=== PATIENT | male | born 1935 | race Caucasian/White ===

== ENCOUNTER 2018-03-17 18:34 | Inpatient (IN) | payer OTHER ==
--- NOTE | 2018-03-17 18:46 | PDOC ---
Rapid Medical Evaluation Chief Complaint: Shortness of Breath Time Seen by Provider: 03/17/18 18:37 Medical Evaluation: Allergies Allergy/AdvReac Type Severity Reaction Status Date / Time morphine Allergy Verified 03/17/18 18:37 03/17/18 18:38 I have performed a brief in-person evaluation of this patient. The patient presents with a chief complaint of GOLDBERG x 4 days. H/o HTN, HLD, CAD s /p CABG 2016 in [place], on asa, CHF on butamenide, DVT to R leg in 2017, on eliquis , COPD, not on oxygen. Symptoms started while in [place] (drove from [place] 8 days ago and arrived in [place] March 12) Pertinent physical exam findings:Stable w/ clear chest/lungs w/ trace edema I have ordered the following:ekg/cxr/labs The patient will proceed to the ED for further evaluation.
[2018-03-17 19:42] LABS: BASO % 0.1 % (0-2.0); EOS % 0.1 % (0-4.5)
[2018-03-17 19:52] LABS: HEMATOCRIT 19.7 % (35.4-49); LYMPH % 12.6 % (8-40); MCH 35.7 pg (25.7-33.7); MCHC 34.2 g/dl (32.0-35.9); MEAN CELL VOLUME 104.2 fl (80-96); NEUT % 80.2 % (42.8-82.8); PLATELET COUNT 126 K/MM3 (134-434); RBC 1.89 M/mm3 (4.00-5.60); RDW 20.7 % (11.9-15.9); WHITE BLOOD COUNT 5.4 K/mm3 (4.0-10.0)
[2018-03-17 19:55] LABS: ADD RBC MORPHOLOGY YES; HEMOGLOBIN 6.7 GM/dL (11.7-16.9)
--- NOTE | 2018-03-17 19:56 | PDOC ---
History of Present Illness - General History Source: Patient, Family Exam Limitations: No Limitations - History of Present Illness Initial Comments: 03/17/18 19:54 The patient is an 82M with a PMH of santo on eliquis, COPD, HTN, stage 3 CKD who presents to the ER with worsening GOLDBERG and shortness of breath. Of note, the patient traveled from [place] 5 days ago by car over 3 days span. The patient does have a history of blood clots. The patient is with his daughter who provides most of the history. The patient states that he has recently had acutely worsened GOLDBERG but denies orthopnea. He denies any SOB while resting. He does state that he becomes dyspneic any time he tries to walk. He denies any CP , fever, chills, nausea, vomiting, swelling in extremities. <Brenden Sapp - Last Filed: 03/17/18 21:50> <Laura Loja - Last Filed: 03/17/18 21:57> - General Chief Complaint: Shortness of Breath Stated Complaint: S.O.B Time Seen by Provider: 03/17/18 18:37 Past History - Past Medical History Cancer: Yes (colon, mi) COPD: Yes Diabetes: Yes HTN: Yes Hypercholesterolemia: Yes Other medical history: rt dvt - Surgical History Abdominal Surgery: Yes (colon ca) Cardiac Surgery: Yes (cabg, card stents) - Suicide/Smoking/Psychosocial Hx Smoking History: Former smoker Have you smoked in the past 12 months: No Information on smoking cessation initiated: No Hx Alcohol Use: No Drug/Substance Use Hx: No Substance Use Type: None <Brenden Sapp - Last Filed: 03/17/18 21:50> <Laura Loja - Last Filed: 03/17/18 21:57> - Past Medical History Allergies/Adverse Reactions: Allergies Allergy/AdvReac Type Severity Reaction Status Date / Time morphine Allergy Verified 03/17/18 18:37 Review of Systems - Review of Systems Able to Perform ROS?: Yes Comments:: 03/17/18 21:42 GENERAL/CONSTITUTIONAL: No fever or chills. No weakness. HEAD, EYES, EARS, NOSE AND THROAT: No change in vision. No ear pain or discharge. No sore throat. CARDIOVASCULAR: No chest pain, palpitations, or lightheadedness. RESPIRATORY: Positive for dyspnea on exertion. No cough, wheezing, shortness of breath, or hemoptysis. GASTROINTESTINAL: No nausea, vomiting, diarrhea, constipation, or abdominal pain. GENITOURINARY: No dysuria, frequency, hematuria, or change in urination. MUSCULOSKELETAL: No joint or muscle swelling or pain. No neck or back pain. SKIN: No rash or lesions. NEUROLOGIC: No headache, numbness, tingling, weakness, loss of consciousness, or change in strength/sensation. ENDOCRINE: No increased thirst. No abnormal weight change. HEMATOLOGIC/LYMPHATIC: No anemia, easy bleeding, or history of blood clots. ALLERGIC/IMMUNOLOGIC: No hives or skin allergy. Is the patient limited Bengali proficient: No <Brenden Sapp - Last Filed: 03/17/18 21:50> *Physical Exam - Vital Signs Last Vital Signs Temp Pulse Resp BP Pulse Ox 97.4 F L 92 H 22 153/74 98 03/17/18 18:37 03/17/18 18:45 03/17/18 18:37 03/17/18 18:37 03/17/18 18:45 - Physical Exam Comments: 03/17/18 21:43 GENERAL: Well developed, well nourished. Awake and alert. No acute distress. HEENT: Normocephalic, atraumatic. Hearing grossly normal. Moist mucous membranes. PERRLA, EOMI. No conjunctival pallor. Sclera are non-icteric. NECK: Supple. Full ROM. No JVD. Carotid pulses 2+ and symmetric, without bruits. No thyromegaly. No lymphadenopathy. CARDIOVASCULAR: Regular rate and rhythm. No murmurs, rubs, or gallops. Distal pulses are 2+ and symmetric. PULMONARY: No evidence of respiratory distress. Lungs clear to auscultation bilaterally. No wheezing, rales or rhonchi. ABDOMINAL: Soft. Non-tender. Non-distended. No rebound or guarding. No organomegaly. Normoactive bowel sounds. GENITOURINARY: No CVA tenderness bilaterally. MUSCULOSKELETAL: Normal range of motion at all joints. No bony deformities or tenderness. EXTREMITIES: No cyanosis. No clubbing. No edema. No calf tenderness. SKIN: Warm and dry. Normal capillary refill. No rashes. No jaundice. NEUROLOGICAL: Alert, awake, appropriate. Cranial nerves 2-12 intact. Normal speech. Gait is normal without ataxia. PSYCHIATRIC: Cooperative. Good eye contact. Appropriate mood and affect. <Brenden Sapp - Last Filed: 03/17/18 21:50> - Vital Signs Last Vital Signs Temp Pulse Resp BP Pulse Ox 97.4 F L 92 H 22 153/74 98 03/17/18 18:37 03/17/18 18:45 03/17/18 18:37 03/17/18 18:37 03/17/18 18:45 <Laura Loja - Last Filed: 03/17/18 21:57> Heart Score/ECG Review #1 ECG reviewed & interpreted by me at: 19:26 General ECG Interpretation: Sinus Rhythm, Normal Rate, Normal Intervals, No acute ischemic changes Compared to previous ECG there are: Previous ECG unavail 03/17/18 21:39 Vent rate 97 QRS 86 QTc 439 A-fib with regular rate No LILIA or STD No acute ischemic changes noted. <Brenden Sapp - Last Filed: 03/17/18 21:50> ED Treatment Course - LABORATORY CBC & Chemistry Diagram: 03/17/18 18:34 03/17/18 18:34 <Brenden Sapp - Last Filed: 03/17/18 21:50> - LABORATORY CBC & Chemistry Diagram: 03/17/18 18:34 03/17/18 18:34 - ADDITIONAL ORDERS Additional order review: Laboratory Results 03/17/18 03/17/18 03/17/18 20:55 20:10 20:08 PT with INR 12.20 INR 1.08 Sodium Potassium Chloride Carbon Dioxide Anion Gap BUN Creatinine Creat Clearance w eGFR Random Glucose Calcium Total Bilirubin AST ALT Alkaline Phosphatase Creatine Kinase Troponin I B-Natriuretic Peptide Total Protein Albumin Stool Occult Blood Blood Type A POSITIVE A POSITIVE Antibody Screen Negative Crossmatch See Detail 03/17/18 03/17/18 03/17/18 20:08 20:00 18:34 PT with INR INR Sodium 137 Potassium 4.5 Chloride 106 Carbon Dioxide 21 Anion Gap 10 BUN 64 H Creatinine 2.0 H Creat Clearance w eGFR 32.23 Random Glucose 336 H* Calcium 9.0 Total Bilirubin 0.5 AST 19 ALT 22 Alkaline Phosphatase 68 Creatine Kinase 106 Troponin I 1.57 H* B-Natriuretic Peptide Total Protein 6.3 L Albumin 3.8 Stool Occult Blood Positive Blood Type Cancelled Antibody Screen Cancelled Crossmatch 03/17/18 18:34 PT with INR INR Sodium Potassium Chloride Carbon Dioxide Anion Gap BUN Creatinine Creat Clearance w eGFR Random Glucose Calcium Total Bilirubin AST ALT Alkaline Phosphatase Creatine Kinase Troponin I B-Natriuretic Peptide 68090.95 H Total Protein Albumin Stool Occult Blood Blood Type Antibody Screen Crossmatch 03/17/18 18:34 RBC 1.89 L MCV 104.2 H MCHC 34.2 RDW 20.7 H MPV 9.0 Neutrophils % 80.2 Lymphocytes % 12.6 Monocytes % 7.0 Eosinophils % 0.1 Basophils % 0.1 <Laura Loja - Last Filed: 03/17/18 21:57> Medical Decision Making - Medical Decision Making 03/17/18 21:17 The patient is an 82M with an extensive PMH who presents with GOLDBERG after having a long trip. I am concerned for PE. Will order basic labs and imaging, including troponin and [place] [address], trop of 1.5. Will microblog hospitalist for admission. Hgb 6, T&S sent. Fecal occult positive. 03/17/18 21:44 Will transfuse with 2 units. Attending endorse pt to hospitalist. Will discuss with ICU team whether or not he should be admitted there or not. Attending discussing with Dr. Orona. 03/17/18 21:50 Dr. Orona would prefer ICU care. SARAHI Barajas in ICU accepts admission under Dr. Burnette. Will page Dr. Martino GI. <Brenden Sapp - Last Filed: 03/17/18 21:50> - Medical Decision Making Dr. Whiteside discussed case with Dr. Martino at 21:57 <Laura Loja - Last Filed: 03/17/18 21:57> *DC/Admit/Observation/Transfer - Discharge Dispostion Decision to Admit order: Yes <Brenden Sapp - Last Filed: 03/17/18 21:50> <Laura Loja - Last Filed: 03/17/18 21:57> Diagnosis at time of Disposition: Dyspnea on exertion Anemia Qualifiers: Anemia type: unspecified type Qualified Code(s): D64.9 - Anemia, unspecified - Discharge Dispostion Condition at time of disposition: Stable
[2018-03-17 20:13] LABS: ALBUMIN 3.8 g/dl (3.4-5.0); ANION GAP 10 (8-16); BILIRUBIN,TOTAL 0.5 mg/dL (0.2-1.0); BLOOD UREA NITROGEN 64 mg/dL (7-18); CHLORIDE 106 mmol/L (98-107); CO2 21 mmol/L (21-32); POTASSIUM 4.5 mmol/L (3.5-5.1); SGOT/AST 19 U/L (15-37); SGPT/ALT 22 U/L (12-78); SODIUM 137 mmol/L (136-145); TOT PROT 6.3 g/dl (6.4-8.2)
[2018-03-17 20:27] LABS: ALK PHOS 68 U/L (45-117); ANISOCYTOSIS 2+; MACROCYTOSIS 1+
[2018-03-17 20:31] LABS: GLUCOSE,RANDOM 336 mg/dL (74-106)
[2018-03-17 20:40] LABS: PLATELET ESTIMATE SLT DECREASE
[2018-03-17 20:52] LABS: INR 1.08 (0.82-1.09); PROTHROMBIN TIME (PATIENT) 12.2 SEC (9.7-13.0)
--- NOTE | 2018-03-17 22:00 | CON.CARD ---
Consult Consult Specialty:: Cardiology - History of Present Illness History of Present Illness: The patient is an 82M with a PMH of ashd s/p CABG, paroxysmal a-fib on eliquis, COPD, HTN, stage 3 CKD who presents to the ER with worsening GOLDBERG and shortness of breath. Of note, the patient traveled from [place] 5 days ago by car over 3 days span. The patient does have a history of blood clots. The patient is with his daughter who provides most of the history. The patient states that he has recently had acutely worsened GOLDBERG but denies orthopnea. He denies any SOB while resting. He does state that he becomes dyspneic any time he tries to walk. He denies any CP, fever, chills, nausea, vomiting, swelling in extremities. - History Source History Provided By: Patient, Medical Record - Past Medical History Cardio/Vascular: Yes: AFIB, CAD, CHF, Deep Vein Thrombosis, HTN, Hyperlipdemia - Past Surgical History Past Surgical History: Yes: CABG - Alcohol/Substance Use Hx Alcohol Use: No - Smoking History Smoking history: Former smoker Have you smoked in the past 12 months: No Home Medications - Allergies Allergies/Adverse Reactions: Allergies Allergy/AdvReac Type Severity Reaction Status Date / Time morphine Allergy Verified 03/17/18 18:37 - Home Medications Home Medications: Ambulatory Orders Allopurinol [Zyloprim -] 100 mg PO DAILY 03/17/18 Aspirin 81 mg PO DAILY 03/17/18 Budesonide/Formeterol Fumarate [SYMBICORT 160/4.5mcg -] 1 inh PO BID 03/17/18 Bumetanide 2 mg PO DAILY 03/17/18 Carvedilol [Coreg -] 12.5 mg PO BID 03/17/18 Cholecalciferol (Vitamin D3) [Vitamin D3] 1,000 unit PO DAILY 03/17/18 Docusate Sodium [Colace] 100 mg PO DAILY 03/17/18 Ferrous Sulfate [Iron] 325 mg PO DAILY 03/17/18 Glipizide [Glucotrol -] 5 mg PO BID 03/17/18 Losartan Potassium [Cozaar -] 25 mg PO DAILY 03/17/18 Potassium Chloride 10 meq PO DAILY 03/17/18 Pregabalin [Lyrica -] 75 mg PO BID 03/17/18 Thiamine Mononitrate [Vitamin B-1] 100 mg PO DAILY 03/17/18 Review of Systems - Review of Systems Constitutional: reports: No Symptoms Eyes: reports: No Symptoms HENT: reports: No Symptoms Neck: reports: No Symptoms Cardiovascular: reports: No Symptoms Respiratory: reports: SOB, SOB on Exertion Gastrointestinal: reports: Melena Genitourinary: reports: No Symptoms Breasts: reports: No Symptoms Reported Musculoskeletal: reports: No Symptoms Integumentary: reports: No Symptoms Neurological: reports: No Symptoms Endocrine: reports: No Symptoms Hematology/Lymphatic: reports: No Symptoms Psychiatric: reports: No Symptoms Vital Signs: Vital Signs Temperature 97.4 F L 03/17/18 18:37 Pulse Rate 92 H 03/17/18 18:45 Respiratory Rate 22 03/17/18 18:37 Blood Pressure 153/74 03/17/18 18:37 O2 Sat by Pulse Oximetry (%) 98 03/17/18 18:45 Constitutional: Yes: Well Nourished, No Distress, Calm Eyes: Yes: WNL, Conjunctiva Clear, EOM Intact HENT: Yes: WNL, Atraumatic, Normocephalic Neck: Yes: WNL, Supple, Trachea Midline Respiratory: Yes: WNL, CTA Bilaterally Gastrointestinal: Yes: WNL, Normal Bowel Sounds Renal/: Yes: WNL Cardiovascular: Yes: WNL, Regular Rate and Rhythm Musculoskeletal: Yes: WNL Extremities: Yes: WNL Edema: Yes Edema: LLE: 1+, RLE: 1+ Integumentary: Yes: WNL Neurological: Yes: WNL, Alert, Oriented ...Motor Strength: WNL Psychiatric: Yes: WNL, Alert, Oriented - Other Data Labs, Other Data: CBC, BMP 03/17/18 18:34 03/17/18 18:34 INR, PTT INR 1.08 (0.82-1.09) 03/17/18 20:08 Troponin, BNP 03/17/18 03/17/18 18:34 18:34 Troponin I 1.57 H* B-Natriuretic Peptide 59770.95 H Troponin, BNP 03/17/18 03/17/18 18:34 18:34 Troponin I 1.57 H* B-Natriuretic Peptide 96678.95 H Imaging - Results Chest X-ray: Image Reviewed (cm s/p cabg increased markings) EKG: Image Reviewed (sr vpc's rep abn old septal infarct) Assessment/Plan ashd s/p CABG, paroxysmal a-fib on eliquis, COPD, HTN, stage 3 CKD who presents to the ER with worsening GOLDBERG and shortness of breath dx wit severe anemia positive TNIs - most likely due to ischemia due to severe anemia due to GI bleed. echo severly reduced ef -26 % [id number] Plan transfuse up to hct 30 use lasix prn to avoid fluid overload gi evaluation cc time 70 min
--- NOTE | 2018-03-17 22:02 | PN ---
Teaching Attending Note Name of Resident: Gia Terrell ATTENDING PHYSICIAN STATEMENT I saw and evaluated the patient. I reviewed the resident's note and discussed the case with the resident. I agree with the resident's findings and plan as documented. SUBJECTIVE: 82M with a PMH of santo on eliquis, DVT,COPD, HTN, stage 3 CKD, who presents with shortness of breath. He recently travelled from [place] by car over the course of 3 days. States he is Dyspnic anytime he walks. He [place] from [place] and then from [place] to [place] today. States he always has dark stool , due to the iron pill and he was told by his PCP in [place] that he was anemic and to have a colonoscopy in May. He denies any chest pain or pressure. No palpitations, dizziness, or lightheadedness. No nausea, vomiting, or diarrhea. No fevers or chills. No headaches, dizziness, or visual changes. OBJECTIVE: Physical: VS: Vital Signs Period Temp Pulse Resp BP Sys/Winslow Pulse Ox Last 24 Hr 97.4 F 92-100 22 153/74 98-100 GEN: NAD, Resting in bed, AA0X3 HEENT: NCAT, PERRL, Throat without erythema or exudates CARD: RRR S1, S2 RESP: CTAB ABD: BSx4, NTD to palpation EXT: +2 Pitting edema, Bilateral and Equal CBCD WBC 5.4 K/mm3 (4.0-10.0) 03/17/18 18:34 RBC 1.89 M/mm3 (4.00-5.60) L 03/17/18 18:34 Hgb 6.7 GM/dL (11.7-16.9) L* 03/17/18 18:34 Hct 19.7 % (35.4-49) L 03/17/18 18:34 MCV 104.2 fl (80-96) H 03/17/18 18:34 MCHC 34.2 g/dl (32.0-35.9) 03/17/18 18:34 RDW 20.7 % (11.9-15.9) H 03/17/18 18:34 Plt Count 126 K/MM3 (134-434) L 03/17/18 18:34 MPV 9.0 fl (7.5-11.1) 03/17/18 18:34 CMP Sodium 137 mmol/L (136-145) 03/17/18 18:34 Potassium 4.5 mmol/L (3.5-5.1) 03/17/18 18:34 Chloride 106 mmol/L (98-107) 03/17/18 18:34 Carbon Dioxide 21 mmol/L (21-32) 03/17/18 18:34 Anion Gap 10 (8-16) 03/17/18 18:34 BUN 64 mg/dL (7-18) H 03/17/18 18:34 Creatinine 2.0 mg/dL (0.7-1.3) H 03/17/18 18:34 Creat Clearance w eGFR 32.23 (>60) 03/17/18 18:34 Random Glucose 336 mg/dL (74-106) H* 03/17/18 18:34 Calcium 9.0 mg/dL (8.5-10.1) 03/17/18 18:34 Total Bilirubin 0.5 mg/dL (0.2-1.0) 03/17/18 18:34 AST 19 U/L (15-37) 03/17/18 18:34 ALT 22 U/L (12-78) 03/17/18 18:34 Alkaline Phosphatase 68 U/L (45-117) 03/17/18 18:34 Total Protein 6.3 g/dl (6.4-8.2) L 03/17/18 18:34 Albumin 3.8 g/dl (3.4-5.0) 03/17/18 18:34 CARDIAC ENZYMES Creatine Kinase 106 IU/L (39-308) 03/17/18 18:34 Troponin I 1.57 ng/ml (0.00-0.05) H* 03/17/18 18:34 CXR: Cardiomegaly EK03/17/18 21:39 Vent rate 97 QRS 86 QTc 439 Home Medications Medication Instructions Recorded Allopurinol [Zyloprim -] 100 mg PO DAILY 03/17/18 Aspirin 81 mg PO DAILY 03/17/18 Budesonide/Formeterol Fumarate 1 inh PO BID 03/17/18 [SYMBICORT 160/4.5mcg -] Bumetanide 2 mg PO DAILY 03/17/18 Carvedilol [Coreg -] 12.5 mg PO BID 03/17/18 Cholecalciferol (Vitamin D3) 1,000 unit PO DAILY 03/17/18 [Vitamin D3] Docusate Sodium [Colace] 100 mg PO DAILY 03/17/18 Ferrous Sulfate [Iron] 325 mg PO DAILY 03/17/18 Glipizide [Glucotrol -] 5 mg PO BID 03/17/18 Losartan Potassium [Cozaar -] 25 mg PO DAILY 03/17/18 Potassium Chloride 10 meq PO DAILY 03/17/18 Pregabalin [Lyrica -] 75 mg PO BID 03/17/18 Thiamine Mononitrate [Vitamin B-1] 100 mg PO DAILY 03/17/18 A-fib with regular rate No LILIA or STD No acute ischemic changes noted. STOOL OCCULT: Positive ASSESSMENT AND PLAN: 82 M with pmhx of a-fib (Eliqius), DVT, COPD, Stg. 3 CKD who presents with shortness of breath found to be anemic and to have elevated Troponins 1.) Shortness of Breath - DDx: Anemia/ NSTEMI, Afib, PE - Wells Score 3, Duplex, Unable to do CTA - Trend Trop/EKG - Transfuse PRBC >7, - ECHO - Duplex LE 2.) A-FIB - C/W Coreg - Hold Eliquis due to GI BLEED 3.) NSTEMI -Trend Trop/EKG - ? GI bleed, HOLD A/C - NO ASA - C/W BB, 02 - IF chest pain, Nitro/Morphine - ECHO 4.) ?GI Bleed - Protonix - COAGS - TYPE & SCREEN - Two Large Bore IVS - GI consulted - NPO 5.) Macrocytic Symptomatic Anemia - Check B12,Folate - Transfuse PRBCs - Fe studies 6.) COPD - Not in Exacerbation - Nebs PRN - SYmbicort 7.) Stg. 3 CKD - monitor - Avoid Nephrotoxins - Trend Cr - Hold Theo 8.) DM - FS - RAISS - CHk. A1C 8.) Dvt Ppx - Scds Accepted to ICU CCTIME:
[2018-03-17] MEDS ORDERED: PREGABALIN 75 MG CAPSULE PO ONE (22:19)
[2018-03-17] MEDS ORDERED: PREGABALIN 25 MG CAPSULE PO ONE (22:30)
[2018-03-17] MEDS ORDERED: SODIUM CHLORIDE 1,000 ML IV SCH (22:30)
[2018-03-17] MEDS ORDERED: PREGABALIN 50 MG CAPSULE ONE (22:52)
[2018-03-17] MEDS ORDERED: PREGABALIN 25 MG CAPSULE ONE (22:53)
[2018-03-17 23:07] LABS: URINE APPEARANCE CLEAR; URINE BILIRUBIN NEGATIVE (<2.0 mg/dL); URINE COLOR LTYELLOW; URINE GLUCOSE (UA) 3+ (NEGATIVE); URINE KETONE NEGATIVE (NEGATIVE); URINE LEUK ESTERASE NEGATIVE (NEGATIVE); URINE NITRITE NEGATIVE (NEGATIVE); URINE PROTEIN NEGATIVE (NEGATIVE); URINE UROBILINOGEN NEGATIVE mg/dL (0.2-1.0)
[2018-03-17] MEDS ORDERED: ALBUTEROL SO4 2.5/IPRATROPIUM 0.5 INH SOL 3 ML VIAL.NEB. NEB PRN (23:13)
[2018-03-17] MEDS ORDERED: PANTOPRAZOLE SODIUM 40 MG VIAL IVPUSH SCH (23:15)
[2018-03-17] MEDS: PREGABALIN 75 MG CAPSULE PO SCH (23:17)
--- NOTE | 2018-03-17 23:19 | HP ---
CHIEF COMPLAINT: Dyspnea on exertion, weakness PCP: Dr. Acuna ([place]) HISTORY OF PRESENT ILLNESS: 82 year old male with a h afib (on eliquis), COPD, HTN, stage 3 CKD, CAD, DM, Colon CA, hx of DVT presented to the hospital with 4 day hx of GOLDBERG and weakness. On March 10, Patient traveled from [place] to [place] in a long car ride, followed by another car ride to [place]. Patient started to feel progressively worsening weakness at the beginning of his trip that resulted in him not being able to walk across the [place] without feeling tired and short of breath. Patient notes that his stools have been dark and "sticky" in consistency for the past month, but denies any overt bleeding. Patient was diagnosed with colon cancer back in the , had a resection and has not followed with a colonoscopy since that time. Back in February, patient was found to be anemic at his PCPs office, after which he was started on iron supplementation. He was scheduled for a colonoscopy this April. Currently patient denies chest pain, shortness of breath at rest, palpitations, lightheadedness, blurry vision, cough, nausea, vomiting, diarrhea, fevers, chills, peripheral edema. ER course was notable for: (1) troponin 1.57 (2) BNP 99267 (3) Hgb 6.7 (4) FOBT + Recent Travel: traveled from [place] to [place] to [place] since March 10 PAST MEDICAL HISTORY: afib (on eliquis), COPD, HTN, stage 3 CKD, CAD, DM, Colon CA, hx of DVT PAST SURGICAL HISTORY: CABG (quadruple bypass may 2016), knee replacement, cardiac stents placed Social History: Smoking: former smoker, quit 42 years ago, smoked since he was 15 years old Alcohol: none Drugs: none Allergies morphine Allergy (Verified 03/17/18 18:37) - HIVES HOME MEDICATIONS: Home Medications Medication Instructions Recorded Allopurinol [Zyloprim -] 100 mg PO DAILY 03/17/18 Aspirin 81 mg PO DAILY 03/17/18 Budesonide/Formeterol Fumarate 1 inh PO BID 03/17/18 [SYMBICORT 160/4.5mcg -] Bumetanide 2 mg PO DAILY 03/17/18 Carvedilol [Coreg -] 12.5 mg PO BID 03/17/18 Cholecalciferol (Vitamin D3) 1,000 unit PO DAILY 03/17/18 [Vitamin D3] Docusate Sodium [Colace] 100 mg PO DAILY 03/17/18 Ferrous Sulfate [Iron] 325 mg PO DAILY 03/17/18 Glipizide [Glucotrol -] 5 mg PO BID 03/17/18 Losartan Potassium [Cozaar -] 25 mg PO DAILY 03/17/18 Potassium Chloride 10 meq PO DAILY 03/17/18 Pregabalin [Lyrica -] 75 mg PO BID 03/17/18 Thiamine Mononitrate [Vitamin B-1] 100 mg PO DAILY 03/17/18 REVIEW OF SYSTEMS CONSTITUTIONAL: generalized weakness Absent: fever, chills, diaphoresis, malaise, loss of appetite, weight change HEENT: Absent: rhinorrhea, nasal congestion, throat pain, throat swelling, difficulty swallowing, mouth swelling, ear pain, eye pain, visual changes CARDIOVASCULAR: Absent: chest pain, syncope, palpitations, irregular heart rate, lightheadedness , peripheral edema RESPIRATORY: dyspnea with exertion, orthopnea Absent: cough, shortness of breath, wheezing, stridor, hemoptysis GASTROINTESTINAL: Absent: abdominal pain, abdominal distension, nausea, vomiting, diarrhea, constipation, melena, hematochezia GENITOURINARY: Absent: dysuria, frequency, urgency, hesitancy, hematuria, flank pain, genital pain MUSCULOSKELETAL: Absent: myalgia, arthralgia, joint swelling, back pain, neck pain SKIN: Absent: rash, itching, pallor HEMATOLOGIC/IMMUNOLOGIC: Absent: easy bleeding, easy bruising, lymphadenopathy, frequent infections ENDOCRINE: Absent: unexplained weight gain, unexplained weight loss, heat intolerance, cold intolerance NEUROLOGIC: Absent: headache, focal weakness or paresthesias, dizziness, unsteady gait, seizure, mental status changes, bladder or bowel incontinence PSYCHIATRIC: Absent: anxiety, depression, suicidal or homicidal ideation, hallucinations. PHYSICAL EXAMINATION Vital Signs - 24 hr 03/17/18 03/17/18 03/17/18 18:37 18:45 22:19 Temperature 97.4 F L Pulse Rate 100 H 92 H Pulse Rate [ 90 Apical] Respiratory 22 16 Rate Blood Pressure 153/74 Blood Pressure 145/82 [Right Arm] O2 Sat by Pulse 100 98 98 Oximetry (%) GENERAL: A&Ox3, no acute distress EYES: PERRLA, EOMI, conjunctival pallor noted ENT: Moist mucus membranes LUNGS: CTA, no wheezes, crackles were not noted HEART: irregularly irregular rate, no MRG ABDOMEN: Obese, soft, nontender, BS present EXTREMITIES: 2+ pulses, no edema. NEUROLOGICAL: Cranial nerves II-XII intact. Laboratory Results - last 24 hr 03/17/18 03/17/18 03/17/18 18:34 18:34 18:34 WBC 5.4 RBC 1.89 L Hgb 6.7 L* Hct 19.7 L MCV 104.2 H MCH 35.7 H MCHC 34.2 RDW 20.7 H Plt Count 126 L MPV 9.0 Neutrophils % 80.2 Lymphocytes % 12.6 Monocytes % 7.0 Eosinophils % 0.1 Basophils % 0.1 Hypochromia 2+ Platelet Estimate Slt decrease Platelet Comment No clumping noted Polychromasia 1+ Anisocytosis 2+ Microcytosis 2+ Macrocytosis 1+ PT with INR INR Sodium 137 Potassium 4.5 Chloride 106 Carbon Dioxide 21 Anion Gap 10 BUN 64 H Creatinine 2.0 H Creat Clearance w eGFR 32.23 Random Glucose 336 H* Calcium 9.0 Total Bilirubin 0.5 AST 19 ALT 22 Alkaline Phosphatase 68 Creatine Kinase 106 Troponin I 1.57 H* B-Natriuretic Peptide 66626.95 H Total Protein 6.3 L Albumin 3.8 Urine Color Urine Appearance Urine pH Ur Specific [place] Urine Protein Urine Glucose (UA) Urine Ketones Urine Blood Urine Nitrite Urine Bilirubin Urine Urobilinogen Ur Leukocyte Esterase Stool Occult Blood Blood Type Antibody Screen Crossmatch 03/17/18 03/17/18 03/17/18 20:00 20:08 20:08 WBC RBC Hgb Hct MCV MCH MCHC RDW Plt Count MPV Neutrophils % Lymphocytes % Monocytes % Eosinophils % Basophils % Hypochromia Platelet Estimate Platelet Comment Polychromasia Anisocytosis Microcytosis Macrocytosis PT with INR 12.20 INR 1.08 Sodium Potassium Chloride Carbon Dioxide Anion Gap BUN Creatinine Creat Clearance w eGFR Random Glucose Calcium Total Bilirubin AST ALT Alkaline Phosphatase Creatine Kinase Troponin I B-Natriuretic Peptide Total Protein Albumin Urine Color Urine Appearance Urine pH Ur Specific [place] Urine Protein Urine Glucose (UA) Urine Ketones Urine Blood Urine Nitrite Urine Bilirubin Urine Urobilinogen Ur Leukocyte Esterase Stool Occult Blood Positive Blood Type Cancelled Antibody Screen Cancelled Crossmatch 03/17/18 03/17/18 03/17/18 20:10 20:55 22:56 WBC RBC Hgb Hct MCV MCH MCHC RDW Plt Count MPV Neutrophils % Lymphocytes % Monocytes % Eosinophils % Basophils % Hypochromia Platelet Estimate Platelet Comment Polychromasia Anisocytosis Microcytosis Macrocytosis PT with INR INR Sodium Potassium Chloride Carbon Dioxide Anion Gap BUN Creatinine Creat Clearance w eGFR Random Glucose Calcium Total Bilirubin AST ALT Alkaline Phosphatase Creatine Kinase Troponin I B-Natriuretic Peptide Total Protein Albumin Urine Color Ltyellow Urine Appearance Clear Urine pH 5.0 Ur Specific [place] 1.012 Urine Protein Negative Urine Glucose (UA) 3+ H Urine Ketones Negative Urine Blood Negative Urine Nitrite Negative Urine Bilirubin Negative Urine Urobilinogen Negative Ur Leukocyte Esterase Negative Stool Occult Blood Blood Type A POSITIVE A POSITIVE Antibody Screen Negative Crossmatch See Detail ASSESSMENT/PLAN: 82 year old male with a pmh afib (on eliquis), COPD, HTN, stage 3 CKD, CAD, DM, Colon CA, hx of DVT presented to the hospital with dyspnea on exertion, anemia and troponinemia suggestive of possible GI bleed and questionable NSTEMI #Anemia 2/2 possible blood loss: likely secondary to GI bleed based on history of colon CA and dark stools (although patient is on iron), possible contribution from CKD -2 large bore IVs -type and screen -transfuse 2U PRBCs -give 20mg lasix after 1st unit of PRBCs -hold eliquis in setting of active bleed -protonix 40mg IV BID -continue iron supplementation -keep NPO -f/u iron studies -f/u folate/B12 -ICU admission, ICU RADIOLOGY TECHNICIAN notified -GI - Dr. Martino consult appreciated, possible EGD/Colonoscopy this admission #Troponinemia: possible NSTEMI vs Demand ischemia -HEART score 6 -EKG afib, rate controlled at 97bpm, Qtc 439, no signs of ischemic changes -lipid panel -atorvastatin 40mg HS -hold aspirin/anticoagulation in setting of active bleed -Cards consult Dr. [place] appreciated #Atrial Fibrillation: rate controlled -hold eliquis in setting of bleed -continue coreg 12.5 PO BID #Diabetes Mellitus: glucose was elevated at 336 -BGMs -ISS as ordered -hold home glycemic agents #Chronic Obstructive Pulmonary Disease: not in active exacerbation -duonebs PRN #Congestive Heart Failure: patient is clinically euvolemic, does not appear to be in active CHF exacerbation -BNP is possibly elevated due to CKD status -Bumetanide 2mg PO daily continued -echocardiogram #Hypertension: patient is mildly hypertensive at 153/74 -continue coreg -hold cozaar #Chronic Kidney Disease: could be accounting for elevated BNP and contributing to troponinemia -monitor BMP in the AM #FEN -No standing fluids, 2 U PRBCs ordered -NPO for possible GI bleed -replete lytes as necessary in AM #Prophylaxis: -eliquis was held -SCDs bilaterally #Disposition: -admit to ICU for continued cardiac and hemodynamic monitoring. Visit type - Emergency Visit Emergency Visit: Yes ED Registration Date: 03/17/18 Care time: The patient presented to the Emergency Department on the above date and was hospitalized for further evaluation of their emergent condition. - New Patient This patient is new to me today: Yes Date on this admission: 03/17/18 - Critical Care Critical Care patient: Yes Total Critical Care Time (in minutes): 35 Critical Care Statement: The care of this patient involved high complexity decision making to prevent further life threatening deterioration of the patient 's condition and/or to evaluate & treat vital organ system(s) failure or risk of failure. Hospitalist Screening - Colonoscopy Questionnaire Colonoscopy Questionnaire: Colonoscopy Questionnaire - Patient: 50 - 75 years old and never had a screening colonoscopy: No History of colon or rectal polyps, or CA: Yes History of IBD, Crohn's disease or UC: No History of abdominal radiation therapy as a child: No - Relative: 1 with colon or rectal CA, or polyps at age 60 or younger: No Colon or rectal CA diagnosed at age 45 or younger: No Multiple relatives with colon or rectal CA: No - Outcome: Screening Result: Positive Screen
--- NOTE | 2018-03-17 23:47 | CONSULT ---
Consult Consult Specialty:: Pulm/CCM Reason for Consultation:: SOB; GIB - History of Present Illness Chief Complaint: SOB, GOLDBERG History of Present Illness: 82 yom with PMHx of Afib (on eliquis), COPD, HTN, stage 3 CKD, CAD, MIs/p stents and CABG, DM, Colon CA, hx of DVT presented to the hospital c/o GOLDBERG and weakness x 4days. Pt stated that he was feeling slightly SOB before he travelled from [place] to [place] for a graduation. He c/o worsening GOLDBERG during the trip and presented to [facility]. He reports compliance to all his medication and to a low Na diet while on the trip. He reported black stools, thought m/l d/t iron supplements but no active bleeding. He was scheduled for a colonoscopy in April . He denied chest pain, palpitations, lightheadedness, blurry vision, cough, nausea, vomiting, diarrhea, fevers, chills, peripheral edema. In ED afebrile, HR 100 irreg, BP 153/74, RR 22, O2 sat 100% on room air. Labs notable for Hgb 6.7, BNP 25,438, Trop 1.7, guiac + stool. Glc 336. CXR shows bilat pulm congestion. GI consulted. Will see in am. Made NPO with PPI BID and transferred to ICU for management of possible GIB and CHF exacerbation. In ICU rec'd A+O x3, VS BP 147/63, HR 88 irreg, O2 sat 97%, RR 19. Slight SOB during interview but in NAD. He denied any chest pain, abd pain, lightheadedness. Lasix IV given. 1U PRBC given slowly. - History Source History Provided By: Patient, Medical Record Limitations to Obtaining History: No Limitations - Past Medical History Cardio/Vascular: Yes: AFIB, CAD, CHF, HTN, Hyperlipdemia, AR Pulmonary: Yes: COPD Gastrointestinal: Yes: Cancer (Colon Cancer) Heme/Onc: Yes: Anemia, Cancer (Colon Cancer 15y ago) - Past Surgical History Past Surgical History: Yes: CABG, Colectomy, Stent - Alcohol/Substance Use Hx Alcohol Use: No - Smoking History Smoking history: Former smoker Have you smoked in the past 12 months: No - Social History Usual Living Arrangement: With Spouse Home Medications - Allergies Allergies/Adverse Reactions: Allergies Allergy/AdvReac Type Severity Reaction Status Date / Time morphine Allergy Verified 03/17/18 18:37 - Home Medications Home Medications: Ambulatory Orders Allopurinol [Zyloprim -] 100 mg PO DAILY 03/17/18 Aspirin 81 mg PO DAILY 03/17/18 Budesonide/Formeterol Fumarate [SYMBICORT 160/4.5mcg -] 1 inh PO BID 03/17/18 Bumetanide 2 mg PO DAILY 03/17/18 Carvedilol [Coreg -] 12.5 mg PO BID 03/17/18 Cholecalciferol (Vitamin D3) [Vitamin D3] 1,000 unit PO DAILY 03/17/18 Docusate Sodium [Colace] 100 mg PO DAILY 03/17/18 Ferrous Sulfate [Iron] 325 mg PO DAILY 03/17/18 Glipizide [Glucotrol -] 5 mg PO BID 03/17/18 Losartan Potassium [Cozaar -] 25 mg PO DAILY 03/17/18 Potassium Chloride 10 meq PO DAILY 03/17/18 Pregabalin [Lyrica -] 75 mg PO BID 03/17/18 Thiamine Mononitrate [Vitamin B-1] 100 mg PO DAILY 03/17/18 Family Disease History - Family Disease History Family History: Unremarkable Review of Systems - Review of Systems Constitutional: reports: No Symptoms Eyes: reports: No Symptoms HENT: reports: No Symptoms Neck: reports: No Symptoms Cardiovascular: reports: Shortness of Breath Respiratory: reports: No Symptoms, SOB, SOB on Exertion Gastrointestinal: reports: No Symptoms Genitourinary: reports: No Symptoms Musculoskeletal: reports: Joint Pain Integumentary: reports: No Symptoms Neurological: reports: No Symptoms Endocrine: reports: No Symptoms Hematology/Lymphatic: reports: Easily Bruised Psychiatric: reports: No Symptoms Physical Exam Vital Signs: Vital Signs Temperature 97.4 F L 03/17/18 18:37 Pulse Rate 90 03/17/18 22:19 Respiratory Rate 16 03/17/18 22:19 Blood Pressure 145/82 03/17/18 22:19 O2 Sat by Pulse Oximetry (%) 98 03/17/18 22:19 Intake & Output 03/14/18 03/15/18 03/16/18 03/17/18 23:59 23:59 23:59 23:59 Weight 107.955 kg Constitutional: Yes: No Distress, Calm, Obese Eyes: Yes: Conjunctiva Clear, PERRL HENT: Yes: Atraumatic, Normocephalic Neck: Yes: Supple, Trachea Midline Cardiovascular: Yes: Pulse Irregular, S1, S2 Respiratory: Yes: Diminished, On Nasal O2 Gastrointestinal: Yes: Normal Bowel Sounds, Soft, Abdomen, Obese Renal/: Yes: WNL Musculoskeletal: Yes: WNL Edema: Yes Edema: LLE: Trace, RLE: Trace Peripheral Pulses WNL: Yes Integumentary: Yes: Bruising (BUE) ...Motor Strength: WNL Psychiatric: Yes: WNL, Alert, Oriented Labs: CBC, BMP 03/17/18 18:34 03/17/18 18:34 CBC,CMP WBC 5.4 K/mm3 (4.0-10.0) 03/17/18 18:34 RBC 1.89 M/mm3 (4.00-5.60) L 03/17/18 18:34 Hgb 6.7 GM/dL (11.7-16.9) L* 03/17/18 18:34 Hct 19.7 % (35.4-49) L 03/17/18 18:34 MCV 104.2 fl (80-96) H 03/17/18 18:34 MCH 35.7 pg (25.7-33.7) H 03/17/18 18:34 MCHC 34.2 g/dl (32.0-35.9) 03/17/18 18:34 RDW 20.7 % (11.9-15.9) H 03/17/18 18:34 Plt Count 126 K/MM3 (134-434) L 03/17/18 18:34 MPV 9.0 fl (7.5-11.1) 03/17/18 18:34 Neutrophils % 80.2 % (42.8-82.8) 03/17/18 18:34 Lymphocytes % 12.6 % (8-40) 03/17/18 18:34 Monocytes % 7.0 % (3.8-10.2) 03/17/18 18:34 Eosinophils % 0.1 % (0-4.5) 03/17/18 18:34 Basophils % 0.1 % (0-2.0) 05/08/18 18:34 Hypochromia 2+ 03/17/18 18:34 Platelet Estimate Slt decrease 03/17/18 18:34 Platelet Comment No clumping noted 03/17/18 18:34 Polychromasia 1+ 03/17/18 18:34 Anisocytosis 2+ 03/17/18 18:34 Microcytosis 2+ 03/17/18 18:34 Macrocytosis 1+ 03/17/18 18:34 Sodium 137 mmol/L (136-145) 03/17/18 18:34 Potassium 4.5 mmol/L (3.5-5.1) 03/17/18 18:34 Chloride 106 mmol/L (98-107) 03/17/18 18:34 Carbon Dioxide 21 mmol/L (21-32) 03/17/18 18:34 Anion Gap 10 (8-16) 03/17/18 18:34 BUN 64 mg/dL (7-18) H 03/17/18 18:34 Creatinine 2.0 mg/dL (0.7-1.3) H 03/17/18 18:34 Creat Clearance w eGFR 32.23 (>60) 03/17/18 18:34 Random Glucose 336 mg/dL (74-106) H* 03/17/18 18:34 Calcium 9.0 mg/dL (8.5-10.1) 03/17/18 18:34 Total Bilirubin 0.5 mg/dL (0.2-1.0) 03/17/18 18:34 AST 19 U/L (15-37) 03/17/18 18:34 ALT 22 U/L (12-78) 03/17/18 18:34 Alkaline Phosphatase 68 U/L (45-117) 03/17/18 18:34 Creatine Kinase 106 IU/L (39-308) 03/17/18 18:34 Troponin I 1.57 ng/ml (0.00-0.05) H* 03/17/18 18:34 B-Natriuretic Peptide 63811.95 pg/ml (5-450) H 03/17/18 18:34 Total Protein 6.3 g/dl (6.4-8.2) L 03/17/18 18:34 Albumin 3.8 g/dl (3.4-5.0) 03/17/18 18:34 Current Medications Albuterol/Ipratropium (Duoneb -) 1 amp NEB Q4H PRN PRN Reason: SHORTNESS OF BREATH Allopurinol (Zyloprim -) 100 mg PO DAILY [facility] Atorvastatin Calcium (Lipitor -) 40 mg PO HS [facility] Budesonide/Formoterol Fumarate (Symbicort 160/4.5mcg -) 1 puff IH BID [facility] Bumetanide (Bumex -) 2 mg PO DAILY [facility] Carvedilol (Coreg -) 12.5 mg PO BID [facility] Chlorhexidine Gluconate (Hibiclens For Decolonization -) 1 applic TP HS [facility] Cholecalciferol (Vitamin D3 -) 1,000 unit PO DAILY [facility] Docusate Sodium (Colace -) 100 mg PO DAILY [facility] Ferrous Sulfate (Feosol -) 325 mg PO DAILY [facility] Furosemide (Lasix Injection -) 20 mg IVPUSH ONCE ONE Stop: 03/18/18 01:01 Sodium Chloride (Normal Saline -) 1,000 mls @ 83 mls/hr IV ASDIR [facility] Insulin Aspart (Novolog Vial Sliding Scale -) 1 vial SQ TIDAC [facility] PRN Reason: Protocol Mupirocin (Bactroban Ointment (For Decolonization) -) 1 applic NS BID [facility] Stop: 03/23/18 09:59 Pantoprazole Sodium (Protonix Iv) 40 mg IVPUSH BID [facility] Pregabalin (Lyrica -) 75 mg PO BID [facility] Last Admin: 03/17/18 23:17 Dose: Not Given Thiamine HCl (Vitamin B1 -) 100 mg PO DAILY [facility] Initial Vital Signs Temp Pulse Resp BP Pulse Ox 97.4 F L 100 H 22 153/74 100 03/17/18 18:37 03/17/18 18:37 03/17/18 18:37 03/17/18 18:37 03/17/18 18:37 Imaging - Results Chest X-ray: Report Reviewed Problem List - Problems (1) GIB (gastrointestinal bleeding) Code(s): K92.2 - GASTROINTESTINAL HEMORRHAGE, UNSPECIFIED (2) CHF exacerbation Code(s): I50.9 - HEART FAILURE, UNSPECIFIED (3) Anemia Code(s): D64.9 - ANEMIA, UNSPECIFIED Qualifiers: Anemia type: unspecified type Qualified Code(s): D64.9 - Anemia, unspecified (4) Dyspnea on exertion Code(s): R06.09 - OTHER FORMS OF DYSPNEA Assessment/Plan 82 yom with PMHx of Afib (on eliquis), COPD, HTN, stage 3 CKD, CAD, AR s/p stents and CABG, DM, Colon CA, hx of DVT presented to the hospital c/o GOLDBERG and weakness x 4days found to be anemic with guiac + stool c/f GIB given hx of colon Ca and anticoag with Eliquis and ASA. SOB m/l 2/2 CHF exacerbation/fluid overload. Also with demand ischemia and hyperglycemia. Plan: -GI consult -Cardiology consult -Maintain large bore IV -PPI IV BID -Serial CBC -Transfuse 1U PRBC for Hgb<7 -Lasix diuresis with blood -Hold other IVF for now -NPO -Anemia work-up -NC O2 for O2 sat >92% -Cont COPD regimen -TTE in am -Trend BNP and Trop q8 -ECG -Hold anti hypertensive for now in the setting of bleeding -Hold anticoag and ASA -Cont statin -Monitor BMP and UOP -Renal dose meds -Replete electrolytes -Fingersticks -ISS -Lyrica for restless leg syndrome -SCDs RADHA [facility] time 35mins
[2018-03-18] MEDS ORDERED: FUROSEMIDE 40 MG/4 ML INJECTABLE VIAL IVPUSH ONE ×3 (01:00→16:00)
[2018-03-18] MEDS: ATORVASTATIN CA 40 MG TABLET (FP) PO SCH ×2 (01:41→21:23)
[2018-03-18] MEDS: CARVEDILOL 12.5 MG TABLET (FP) PO SCH ×3 (01:41→21:23)
--- NOTE | 2018-03-18 01:41 | PDOC ---
Attending Attestation - Resident Resident Name: Brenden Sapp - ED Attending Attestation I have performed the following: I have examined & evaluated the patient, The case was reviewed & discussed with the resident, I agree w/resident's findings & plan, Exceptions are as noted - HPI HPI: 03/18/18 01:39 82 yo male presents w daughter because of shortness of breath -pt lives in [place] and drove to [place] and rested for a few days then drove on to [place]. He came because he has a cruise scheduled on Friday - Physicial Exam PE: 03/18/18 01:41 pale appearing elderly 82 yo male head ncat eyes pale conjunctiva,makayla eomi neck no jvd lungs no wheezing,no crackles appreciated abd protuberant but soft ext no pitting edema onhislegs neuro axox3, conversant,moving all extremities - Medical Decision Making 03/18/18 01:44 pt has PMH htn,renal insufficiency,uses a walker -he is seen at [facility] in [place] and was told in February he was anemic and has a colonscopy scheduled for May -hemoglobin is 6.7,hct=18. Pt has POSITIVE hemoccult pt hs POSITIVE trop =1.5 and district fire management officer request ICU and to have the trop repeated -spoke w Dr Martino for GI consult IMP GI bleed,positive troponin admitted to ICU
[2018-03-18] MEDS ORDERED: INSULIN (NOVOLOG) ASPART 100 UNITS/ML 10ML VIAL ONE (01:44)
[2018-03-18] MEDS: INSULIN SLIDING SCALE (NOVOLOG) 1 VIAL SQ SCH ×4 (01:50→17:43)
[2018-03-18] MEDS: SODIUM CHLORIDE 1,000 ML IV SCH (06:29)
[2018-03-18 07:00] LABS: GLUCOSE,RANDOM 94 mg/dL (74-106)
[2018-03-18 07:01] LABS: ANION GAP 7 (8-16); BLOOD UREA NITROGEN 64 mg/dL (7-18); CALCIUM 8.9 mg/dL (8.5-10.1); CHLORIDE 109 mmol/L (98-107); CO2 27 mmol/L (21-32); CREATININE 1.9 mg/dL (0.7-1.3); MAGNESIUM 2.4 mg/dL (1.8-2.4); PHOSPHOROUS 4.4 mg/dL (2.5-4.9); POTASSIUM 3.9 mmol/L (3.5-5.1); SODIUM 143 mmol/L (136-145)
[2018-03-18 07:25] LABS: HEMATOCRIT 20.9 % (35.4-49); HEMOGLOBIN 7.4 GM/dL (11.7-16.9); MCH 34.8 pg (25.7-33.7); MCHC 35.2 g/dl (32.0-35.9); MEAN PLT VOLUME 8.9 fl (7.5-11.1); PLATELET COUNT 118 K/MM3 (134-434); RBC 2.11 M/mm3 (4.00-5.60); RDW 24.1 % (11.9-15.9); WHITE BLOOD COUNT 7.3 K/mm3 (4.0-10.0)
--- NOTE | 2018-03-18 07:33 | PN ---
Progress Note (short form) - Note Progress Note: Overnight: Received 1u PRBC w/ lasix in between S: SOB much improved. No complaints. No BM, no GIB overnight Will receive 2nd unit PRBC this AM. If cardio clears, patient will get UGD today by GI O: Vital Signs Period Temp Pulse Resp BP Sys/Winslow Pulse Ox Last 24 Hr 97.4 F-98.4 F 82-100 16-22 109-153/56-88 97-100 GEN: AAOx3, NAD, Lying comfortably HEENT: Pale, PERRLA, EOMi, no JVD CV: S1, S2, irregularly irregular rhythm LUNG: Bibasilar crackles ABD: Obese, soft, NT, ND, normoactive BS MSK: No edema, no erythema NEURO: CN 2-12, intact, no sensation or msk deficits Active Medications Albuterol/Ipratropium (Duoneb -) 1 amp NEB Q4H PRN PRN Reason: SHORTNESS OF BREATH Allopurinol (Zyloprim -) 100 mg PO DAILY [facility] Atorvastatin Calcium (Lipitor -) 40 mg PO HS [facility] Last Admin: 03/18/18 01:41 Dose: 40 mg Budesonide/Formoterol Fumarate (Symbicort 160/4.5mcg -) 1 puff IH BID [facility] Bumetanide (Bumex -) 2 mg PO DAILY [facility] Carvedilol (Coreg -) 12.5 mg PO BID [facility] Last Admin: 03/18/18 01:41 Dose: 12.5 mg Chlorhexidine Gluconate (Hibiclens For Decolonization -) 1 applic TP HS [facility] Cholecalciferol (Vitamin D3 -) 1,000 unit PO DAILY [facility] Docusate Sodium (Colace -) 100 mg PO DAILY [facility] Ferrous Sulfate (Feosol -) 325 mg PO DAILY [facility] Sodium Chloride (Normal Saline -) 1,000 mls @ 5 mls/hr IV ASDIR [facility] Last Admin: 03/18/18 06:29 Dose: 5 mls/hr Pantoprazole Sodium 80 mg/ (Sodium Chloride) 100 mls @ 10 mls/hr IVPB Q10H JEZ PRN Reason: 8 MG/HR Insulin Aspart (Novolog Vial Sliding Scale -) 1 vial SQ TIDAC [facility] PRN Reason: Protocol Last Admin: 03/18/18 06:30 Dose: Not Given Mupirocin (Bactroban Ointment (For Decolonization) -) 1 applic NS BID [facility] Stop: 03/23/18 09:59 Pregabalin (Lyrica -) 75 mg PO BID [facility] Last Admin: 03/17/18 23:17 Dose: Not Given Thiamine HCl (Vitamin B1 -) 100 mg PO DAILY [facility] A/P: 82yo M with PMHx of Afib (on Eliquis), DVT, COPD, Stage 3 CKD, hx of colon CA s/ p resection who presented w/ SOB, found to be anemic w/ elevated trops. # SOB -- Likely 2/2 anemia since improving w/ transfusion. Other ddx include CHF though not clinically overloaded. Possible PE due to prolonged travel immobility , however Wells score is 3 (low risk). Will get stat duplex. If still vs PE ( had prolonged period of immobility). Unable to do CTA due to CKD, if still suspicious can do VQ. # Macrocytic Anemia -- Transfused 1 unit. Another unit this AM. Could be 2/2 GI bleed, +FOBT. Eliquis held. Protonix ggt started. GI Dr Martino to perform upper EGD this afternoon. Needs cardio clearance. NPO. B12, folate, fe studies. # Elevated Trops -- Liekly demand from anemia. Trops peaked. No CP. EKG no ST/T changes. # CAD -- S/p quadruple bypass. Hold ASA for GIB # CKD Stage 3 -- Stable. unable to do CTA. Hold ACEi. Avoid nephrotoxins # Hx of Colon CA -- Diagnosed in . Lost to followup. Needs outpatient colonoscopy # Afib -- Rate controlled. C/w coreg. Eliquis held due to GIB. # CHF -- Unsure if systolic vs diastolic, no echo in system. Has crackles, but not in clinical exacerbation. Echo ordered. Continue home diuretic. Hold ACEi # COPD -- Not in exacerbation. Nebs prn. Long acting symbicort # DM -- BGMs and ISS achs. A1C # FEN/pPx -- No ivf, NPO for scope, SCDs # Dispo -- Scope today if cardio clears. Not on AC lianet, watch for s/s of stroke. Continue ICU mgmt. Charu Souza MD - pGY1 ICU Resident
[2018-03-18] MEDS ORDERED: PANTOPRAZOLE SODIUM 80 MG in SODIUM CHLORIDE 100 ML IVPB SCH (08:00)
[2018-03-18] MEDS ORDERED: PANTOPRAZOLE SODIUM 160 MG in DEXTROSE 5%-WATER - 290 ML IVPB SCH (08:15)
[2018-03-18] MEDS ORDERED: BUMETANIDE 1 MG TABLET PO SCH (10:00)
[2018-03-18] MEDS: MUPIROCIN 2% TOPICAL OINTMENT FOR DECOLONIZATION NS SCH ×2 (10:22→21:23)
[2018-03-18] MEDS: BUDESONIDE/FORMETEROL FUMARATE 160/4.5 mcg INHALER IH SCH ×2 (10:24→21:23)
--- NOTE | 2018-03-18 10:31 | CON.GI ---
Consult Consult Specialty:: GI Reason for Consultation:: symptomatic anemia, melena - History of Present Illness History of Present Illness: chart reviewed. Events noted. As per initial intake: 82 year old male with a pmh afib (on eliquis), COPD, HTN, stage 3 CKD, CAD, DM, Colon CA, hx of DVT presented to the hospital with 4 day hx of GOLDBERG and weakness. On March 10, Patient traveled from [place] to [place] in a long car ride, followed by another car ride to [place]. Patient started to feel progressively worsening weakness at the beginning of his trip that resulted in him not being able to walk across the [place] without feeling tired and short of breath. Patient notes that his stools have been dark and "sticky" in consistency for the past month, but denies any overt bleeding. Patient was diagnosed with colon cancer back in the , had a resection and has not followed with a colonoscopy since that time. Back in February, patient was found to be anemic at his PCPs office, after which he was started on iron supplementation. He was scheduled for a colonoscopy this April. Currently patient denies chest pain, shortness of breath at rest, palpitations, lightheadedness, blurry vision, cough, nausea, vomiting, diarrhea, fevers, chills, peripheral edema. ER course was notable for: (1) troponin 1.57 (2) BNP 34392 (3) Hgb 6.7 (4) FOBT + At the time of this exam patient appears not in distress, mildly anxious. No acute events overnight. Hemodynamically stable. Received 1 unit of PRBC overnight. No stigmata of ongoing gastrointestinal bleed. - History Source History Provided By: Patient, Medical Record - Past Medical History Cardio/Vascular: Yes: AFIB, CAD, CHF, HTN, Hyperlipdemia, [place] Pulmonary: Yes: COPD Gastrointestinal: Yes: Cancer (Colon Cancer) - Past Surgical History Past Surgical History: Yes: CABG, Colectomy, Stent - Alcohol/Substance Use Hx Alcohol Use: No - Smoking History Smoking history: Former smoker Have you smoked in the past 12 months: No - Social History Usual Living Arrangement: With Spouse Home Medications - Allergies Allergies/Adverse Reactions: Allergies Allergy/AdvReac Type Severity Reaction Status Date / Time morphine Allergy Verified 03/17/18 18:37 - Home Medications Home Medications: Ambulatory Orders Allopurinol [Zyloprim -] 100 mg PO DAILY 03/17/18 Aspirin 81 mg PO DAILY 03/17/18 Budesonide/Formeterol Fumarate [SYMBICORT 160/4.5mcg -] 1 inh PO BID 03/17/18 Bumetanide 2 mg PO DAILY 03/17/18 Carvedilol [Coreg -] 12.5 mg PO BID 03/17/18 Cholecalciferol (Vitamin D3) [Vitamin D3] 1,000 unit PO DAILY 03/17/18 Docusate Sodium [Colace] 100 mg PO DAILY 03/17/18 Ferrous Sulfate [Iron] 325 mg PO DAILY 03/17/18 Glipizide [Glucotrol -] 5 mg PO BID 03/17/18 Losartan Potassium [Cozaar -] 25 mg PO DAILY 03/17/18 Potassium Chloride 10 meq PO DAILY 03/17/18 Pregabalin [Lyrica -] 75 mg PO BID 03/17/18 Thiamine Mononitrate [Vitamin B-1] 100 mg PO DAILY 03/17/18 Family Disease History - Family Disease History Family History: Unremarkable (Noncontributory) Review of Systems Findings/Remarks: as per H&P and HPI Physical Exam-GI Vital Signs: Vital Signs Temperature 97.6 F 03/18/18 08:00 Pulse Rate 83 03/18/18 08:00 Respiratory Rate 19 03/18/18 08:00 Blood Pressure 115/47 03/18/18 08:00 O2 Sat by Pulse Oximetry (%) 100 03/18/18 09:44 Constitutional: Yes: Calm, Pallor Eyes: No: Sclera Icterus Cardiovascular: Yes: Other ( PVC) Respiratory: Yes: Regular Gastrointestinal Inspection: No: Ascites, Distention ...Auscultate: Yes: Normoactive Bowel Sounds ...Palpate: Yes: Soft. No: Firm/Rigid, Guarding, Mass, Tenderness, Tenderness, Epigastium, Tenderness, Rebound ...Rectal Exam: Yes: Guaiac Positive Neurological: Yes: Alert, Oriented Labs: CBC, BMP 03/18/18 05:27 03/18/18 05:27 INR, PTT INR 1.08 (0.82-1.09) 03/17/18 20:08 Laboratory Last Values WBC 7.3 K/mm3 (4.0-10.0) D 03/18/18 05:27 RBC 2.11 M/mm3 (4.00-5.60) L 03/18/18 05:27 Hgb 7.4 GM/dL (11.7-16.9) L D 03/18/18 05:27 Hct 20.9 % (35.4-49) L 03/18/18 05:27 MCV 99.0 fl (80-96) H 03/18/18 05:27 MCH 34.8 pg (25.7-33.7) H 03/18/18 05:27 MCHC 35.2 g/dl (32.0-35.9) 03/18/18 05:27 RDW 24.1 % (11.9-15.9) H D 03/18/18 05:27 Plt Count 118 K/MM3 (134-434) L 03/18/18 05:27 MPV 8.9 fl (7.5-11.1) 03/18/18 05:27 Neutrophils % 80.2 % (42.8-82.8) 03/17/18 18:34 Lymphocytes % 12.6 % (8-40) 03/17/18 18:34 Monocytes % 7.0 % (3.8-10.2) 03/17/18 18:34 Eosinophils % 0.1 % (0-4.5) 03/17/18 18:34 Basophils % 0.1 % (0-2.0) 03/17/18 18:34 Hypochromia 2+ 03/17/18 18:34 Platelet Estimate Slt decrease 03/17/18 18:34 Platelet Comment No clumping noted 03/17/18 18:34 Polychromasia 1+ 03/17/18 18:34 Anisocytosis 2+ 03/17/18 18:34 Microcytosis 2+ 03/17/18 18:34 Macrocytosis 1+ 03/17/18 18:34 PT with INR 12.20 SEC (9.7-13.0) 03/17/18 20:08 INR 1.08 (0.82-1.09) 03/17/18 20:08 Sodium 143 mmol/L (136-145) 03/18/18 05:27 Potassium 3.9 mmol/L (3.5-5.1) 03/18/18 05:27 Chloride 109 mmol/L (98-107) H 03/18/18 05:27 Carbon Dioxide 27 mmol/L (21-32) D 03/18/18 05:27 Anion Gap 7 (8-16) L 03/18/18 05:27 BUN 64 mg/dL (7-18) H 03/18/18 05:27 Creatinine 1.9 mg/dL (0.7-1.3) H 03/18/18 05:27 Creat Clearance w eGFR 32.23 (>60) 03/17/18 18:34 POC Glucometer 109.34469 UNITS (80-120) 03/18/18 06:26 Random Glucose 94 mg/dL (74-106) D 03/18/18 05:27 Calcium 8.9 mg/dL (8.5-10.1) 03/18/18 05:27 Phosphorus 4.4 mg/dL (2.5-4.9) 03/18/18 05:27 Magnesium 2.4 mg/dL (1.8-2.4) 03/18/18 05:27 Total Bilirubin 0.5 mg/dL (0.2-1.0) 03/17/18 18:34 AST 19 U/L (15-37) 03/17/18 18:34 ALT 22 U/L (12-78) 03/17/18 18:34 Alkaline Phosphatase 68 U/L (45-117) 03/17/18 18:34 Creatine Kinase 95 IU/L (39-308) 03/18/18 05:57 Troponin I 1.80 ng/ml (0.00-0.05) H* 03/18/18 05:57 B-Natriuretic Peptide 29018.95 pg/ml (5-450) H 03/17/18 18:34 Total Protein 6.3 g/dl (6.4-8.2) L 03/17/18 18:34 Albumin 3.8 g/dl (3.4-5.0) 03/17/18 18:34 Urine Color Ltyellow 03/17/18 22:56 Urine Appearance Clear 03/17/18 22:56 Urine pH 5.0 (5.0-8.0) 03/17/18 22:56 Ur Specific [place] 1.012 (1.001-1.035) 03/17/18 22:56 Urine Protein Negative (NEGATIVE) 03/17/18 22:56 Urine Glucose (UA) 3+ (NEGATIVE) H 03/17/18 22:56 Urine Ketones Negative (NEGATIVE) 03/17/18 22:56 Urine Blood Negative (NEGATIVE) 03/17/18 22:56 Urine Nitrite Negative (NEGATIVE) 03/17/18 22:56 Urine Bilirubin Negative (<2.0 mg/dL) 03/17/18 22:56 Urine Urobilinogen Negative mg/dL (0.2-1.0) 03/17/18 22:56 Ur Leukocyte Esterase Negative (NEGATIVE) 03/17/18 22:56 Urine Osmolality 498 mosm/kg (300-900) 03/18/18 02:00 Ur Random Sodium 23 MMOL/L 03/18/18 02:00 Ur Random Urea Nitrogn 925 mg/dL 03/18/18 02:00 Urine Creatinine 111.0 mg/dL (20-370) 03/18/18 02:00 Stool Occult Blood Positive (NEGATIVE) 03/17/18 20:00 Blood Type A POSITIVE 03/17/18 20:55 Antibody Screen Negative 03/17/18 20:55 Crossmatch See Detail 03/17/18 20:55 Problem List - Problems (1) History of colon cancer Code(s): Z85.038 - PERSONAL HISTORY OF MALIGNANT NEOPLASM OF LARGE INTESTINE (2) Anemia Code(s): D64.9 - ANEMIA, UNSPECIFIED Qualifiers: Anemia type: unspecified type Qualified Code(s): D64.9 - Anemia, unspecified (3) GIB (gastrointestinal bleeding) Code(s): K92.2 - GASTROINTESTINAL HEMORRHAGE, UNSPECIFIED Assessment/Plan Symptomatic anemia due to gastrointestinal blood loss. currently is stable with no stigmata of ongoing GI bleed, or hemodynamic changes. Status post once unit of PRBC with hemoglobin of about 7. Plan upper endoscopy today, once cleared by cardiology, to rule out upper GI sources of bleeding. Continue current care. The patient will need surveillance colonoscopy regardless of upper GI findings.
--- NOTE | 2018-03-18 10:33 | EKG ---
Test Reason : Blood Pressure : / mmHG Vent. Rate : 101 BPM Atrial Rate : 120 BPM P-R Int : 210 ms QRS Dur : 088 ms QT Int : 344 ms P-R-T Axes : 108 001 144 degrees QTc Int : 446 ms SINUS TACHYCARDIA WITH 1ST DEGREE A-V BLOCK WITH PREMATURE ATRIAL COMPLEXES ABNORMAL ECG NO PREVIOUS ECGS AVAILABLE Confirmed by SEPIDEH KING MD ([id number]) on 03/18/2018 10:32:43 AM Referred By: Confirmed By:SEPIDEH KING MD
--- NOTE | 2018-03-18 11:00 | EKG ---
Test Reason : Blood Pressure : / mmHG Vent. Rate : 097 BPM Atrial Rate : 107 BPM P-R Int : 000 ms QRS Dur : 086 ms QT Int : 346 ms P-R-T Axes : 000 002 140 degrees QTc Int : 439 ms ATRIAL FIBRILLATION MINIMAL VOLTAGE CRITERIA FOR LVH, MAY BE NORMAL VARIANT SEPTAL INFARCT , AGE UNDETERMINED ABNORMAL ECG NO PREVIOUS ECGS AVAILABLE Confirmed by SEPIDEH KING MD ([id number]) on 03/18/2018 11:00:25 AM Referred By: Confirmed By:SEPIDEH KING MD
--- NOTE | 2018-03-18 11:03 | PN ---
Physical Exam: SUBJECTIVE: Patient seen and examined in ICU. Rest status post 1uprbc, he says when he is laying down he has no sob. Denies cp, palpitations Events: - Tele: SR with frequent PVC, runs of VT, bigeminy OBJECTIVE: Vital Signs Period Temp Pulse Resp BP Sys/Winslow Pulse Ox Last 24 Hr 97.4 F-98.4 F 76-100 16-22 109-153/47-89 97-100 PE Neuro: alert, awake, cn 2-12intact HEENT: poor dentition Pulm: basilar crackles +nc CV: s1 s2 irregular rhythm Abd: s nt nd +bs Ext: warm, no le edema Laboratory Results - last 24 hr 03/17/18 03/17/18 03/17/18 18:34 18:34 18:34 WBC 5.4 RBC 1.89 L Hgb 6.7 L* Hct 19.7 L MCV 104.2 H MCH 35.7 H MCHC 34.2 RDW 20.7 H Plt Count 126 L MPV 9.0 Neutrophils % 80.2 Lymphocytes % 12.6 Monocytes % 7.0 Eosinophils % 0.1 Basophils % 0.1 Hypochromia 2+ Platelet Estimate Slt decrease Platelet Comment No clumping noted Polychromasia 1+ Anisocytosis 2+ Microcytosis 2+ Macrocytosis 1+ PT with INR INR Sodium 137 Potassium 4.5 Chloride 106 Carbon Dioxide 21 Anion Gap 10 BUN 64 H Creatinine 2.0 H Creat Clearance w eGFR 32.23 POC Glucometer Random Glucose 336 H* Calcium 9.0 Phosphorus Magnesium Total Bilirubin 0.5 AST 19 ALT 22 Alkaline Phosphatase 68 Creatine Kinase 106 Troponin I 1.57 H* B-Natriuretic Peptide 36403.95 H Total Protein 6.3 L Albumin 3.8 Urine Color Urine Appearance Urine pH Ur Specific [place] Urine Protein Urine Glucose (UA) Urine Ketones Urine Blood Urine Nitrite Urine Bilirubin Urine Urobilinogen Ur Leukocyte Esterase Urine Osmolality Ur Random Sodium Ur Random Urea Nitrogn Urine Creatinine Stool Occult Blood Blood Type Antibody Screen Crossmatch 03/17/18 03/17/18 03/17/18 20:00 20:08 20:08 WBC RBC Hgb Hct MCV MCH MCHC RDW Plt Count MPV Neutrophils % Lymphocytes % Monocytes % Eosinophils % Basophils % Hypochromia Platelet Estimate Platelet Comment Polychromasia Anisocytosis Microcytosis Macrocytosis PT with INR 12.20 INR 1.08 Sodium Potassium Chloride Carbon Dioxide Anion Gap BUN Creatinine Creat Clearance w eGFR POC Glucometer Random Glucose Calcium Phosphorus Magnesium Total Bilirubin AST ALT Alkaline Phosphatase Creatine Kinase Troponin I B-Natriuretic Peptide Total Protein Albumin Urine Color Urine Appearance Urine pH Ur Specific [place] Urine Protein Urine Glucose (UA) Urine Ketones Urine Blood Urine Nitrite Urine Bilirubin Urine Urobilinogen Ur Leukocyte Esterase Urine Osmolality Ur Random Sodium Ur Random Urea Nitrogn Urine Creatinine Stool Occult Blood Positive Blood Type Cancelled Antibody Screen Cancelled Crossmatch 03/17/18 03/17/18 03/17/18 20:10 20:55 22:56 WBC RBC Hgb Hct MCV MCH MCHC RDW Plt Count MPV Neutrophils % Lymphocytes % Monocytes % Eosinophils % Basophils % Hypochromia Platelet Estimate Platelet Comment Polychromasia Anisocytosis Microcytosis Macrocytosis PT with INR INR Sodium Potassium Chloride Carbon Dioxide Anion Gap BUN Creatinine Creat Clearance w eGFR POC Glucometer Random Glucose Calcium Phosphorus Magnesium Total Bilirubin AST ALT Alkaline Phosphatase Creatine Kinase Troponin I B-Natriuretic Peptide Total Protein Albumin Urine Color Ltyellow Urine Appearance Clear Urine pH 5.0 Ur Specific [place] 1.012 Urine Protein Negative Urine Glucose (UA) 3+ H Urine Ketones Negative Urine Blood Negative Urine Nitrite Negative Urine Bilirubin Negative Urine Urobilinogen Negative Ur Leukocyte Esterase Negative Urine Osmolality Ur Random Sodium Ur Random Urea Nitrogn Urine Creatinine Stool Occult Blood Blood Type A POSITIVE A POSITIVE Antibody Screen Negative Crossmatch See Detail 03/18/18 03/18/18 03/18/18 01:48 02:00 02:00 WBC RBC Hgb Hct MCV MCH MCHC RDW Plt Count MPV Neutrophils % Lymphocytes % Monocytes % Eosinophils % Basophils % Hypochromia Platelet Estimate Platelet Comment Polychromasia Anisocytosis Microcytosis Macrocytosis PT with INR INR Sodium Potassium Chloride Carbon Dioxide Anion Gap BUN Creatinine Creat Clearance w eGFR POC Glucometer 254.06895 Random Glucose Calcium Phosphorus Magnesium Total Bilirubin AST ALT Alkaline Phosphatase Creatine Kinase Troponin I B-Natriuretic Peptide Total Protein Albumin Urine Color Urine Appearance Urine pH Ur Specific [place] Urine Protein Urine Glucose (UA) Urine Ketones Urine Blood Urine Nitrite Urine Bilirubin Urine Urobilinogen Ur Leukocyte Esterase Urine Osmolality 498 Ur Random Sodium Ur Random Urea Nitrogn 925 Urine Creatinine Stool Occult Blood Blood Type Antibody Screen Crossmatch 03/18/18 03/18/18 03/18/18 02:00 02:00 02:00 WBC RBC Hgb Hct MCV MCH MCHC RDW Plt Count MPV Neutrophils % Lymphocytes % Monocytes % Eosinophils % Basophils % Hypochromia Platelet Estimate Platelet Comment Polychromasia Anisocytosis Microcytosis Macrocytosis PT with INR INR Sodium Potassium Chloride Carbon Dioxide Anion Gap BUN Creatinine Creat Clearance w eGFR POC Glucometer Random Glucose Calcium Phosphorus Magnesium Total Bilirubin AST ALT Alkaline Phosphatase Creatine Kinase 100 Troponin I 1.94 H* B-Natriuretic Peptide Total Protein Albumin Urine Color Urine Appearance Urine pH Ur Specific [place] Urine Protein Urine Glucose (UA) Urine Ketones Urine Blood Urine Nitrite Urine Bilirubin Urine Urobilinogen Ur Leukocyte Esterase Urine Osmolality Ur Random Sodium 23 Ur Random Urea Nitrogn Urine Creatinine 111.0 Stool Occult Blood Blood Type Antibody Screen Crossmatch 03/18/18 03/18/18 03/18/18 05:27 05:27 05:57 WBC 7.3 D RBC 2.11 L Hgb 7.4 L D Hct 20.9 L MCV 99.0 H MCH 34.8 H MCHC 35.2 RDW 24.1 H D Plt Count 118 L MPV 8.9 Neutrophils % Lymphocytes % Monocytes % Eosinophils % Basophils % Hypochromia Platelet Estimate Platelet Comment Polychromasia Anisocytosis Microcytosis Macrocytosis PT with INR INR Sodium 143 Potassium 3.9 Chloride 109 H Carbon Dioxide 27 D Anion Gap 7 L BUN 64 H Creatinine 1.9 H Creat Clearance w eGFR POC Glucometer Random Glucose 94 D Calcium 8.9 Phosphorus 4.4 Magnesium 2.4 Total Bilirubin AST ALT Alkaline Phosphatase Creatine Kinase 95 Troponin I 1.80 H* B-Natriuretic Peptide Total Protein Albumin Urine Color Urine Appearance Urine pH Ur Specific [place] Urine Protein Urine Glucose (UA) Urine Ketones Urine Blood Urine Nitrite Urine Bilirubin Urine Urobilinogen Ur Leukocyte Esterase Urine Osmolality Ur Random Sodium Ur Random Urea Nitrogn Urine Creatinine Stool Occult Blood Blood Type Antibody Screen Crossmatch Active Medications Generic Name Dose Route Start Last Admin Trade Name Freq PRN Reason Stop Dose Admin Albuterol/Ipratropium 1 amp 03/17/18 23:13 Duoneb - NEB Q4H PRN SHORTNESS OF BREATH Allopurinol 100 mg 03/18/18 10:00 Zyloprim - PO DAILY JEZ Atorvastatin Calcium 40 mg 03/17/18 23:20 03/18/18 01:41 Lipitor - PO 40 mg HS JEZ Administration Budesonide/Formoterol Fumarate 1 puff 03/18/18 10:00 03/18/18 10:24 Symbicort 160/4.5mcg - IH 1 puff BID JEZ Administration Bumetanide 2 mg 03/18/18 10:00 Bumex - PO DAILY JEZ Carvedilol 12.5 mg 03/17/18 23:30 03/18/18 01:41 Coreg - PO 12.5 mg BID JEZ Administration Chlorhexidine Gluconate 1 applic 03/18/18 22:00 Hibiclens For Decolonization - TP HS [facility] Cholecalciferol 1,000 unit 03/18/18 10:00 Vitamin D3 - PO DAILY [facility] Docusate Sodium 100 mg 03/18/18 10:00 Colace - PO DAILY JEZ Ferrous Sulfate 325 mg 03/18/18 10:00 Feosol - PO DAILY [facility] Sodium Chloride 1,000 mls @ 5 mls/hr 03/18/18 06:05 03/18/18 06:29 Normal Saline - IV 5 mls/hr ASDIR JEZ Administration Pantoprazole Sodium 160 mg/ 290 mls @ 14.5 mls/hr 03/18/18 08:15 03/18/18 10: 19 Dextrose IVPB 14.5 mls/hr Q20H JEZ Administration Insulin Aspart 1 vial 03/17/18 23:15 03/18/18 06:30 Novolog Vial Sliding Scale - SQ Not Given TIDAC [facility] Protocol Mupirocin 1 applic 03/18/18 10:00 03/18/18 10:22 Bactroban Ointment (For Decolonization) - NS 03/23/18 09:59 1 applic BID JEZ Administration Pregabalin 75 mg 03/17/18 23:15 03/17/18 23:17 Lyrica - PO Not Given BID JEZ Thiamine HCl 100 mg 03/18/18 10:00 Vitamin B1 - PO DAILY [facility] Assessment: 82 year old male with a pmhx afib (on eliquis), COPD, HTN, stage 3 CKD, CAD, DM, Colon CA, hx of DVT admitted with dyspnea on exertion, anemia and elevated troponin. Plan: 1. Symptomatic anemia d/t GIB - S/p 1UPRBC with appropriate rise - Positive stool occult - For upper and lower gi scope once cleared by cardiology - Hold Eliquis - Iron studies, folate, b12 pending - On fe supplements - Trend hgb, transfuse <8 2. GIB - Will need EGD/colonoscopy pending cardiology clearance - Switch to Protonix BID - Start clears - GI seeing 3. Acute CHF exacerbation - Previous BNP unknown - ECHO done, report pending, pre wyatt card read, EF low - D/w ICU team, dose x1 lasix 40mg IV BID, monitor lCr and lytes in light of pvcs 4. TYLER on ?CKD - Baseline unknown - Monitor BMP - FEUrea 24% indicates pre renal - Encourage PO intake - Renal us when stable or cr rises 5. Elevated trops - Likely demand - Trops elevated, however down trending - Cardiology following 6. A fib - Rate controlled - Hold eliquis - Continue coreg 12.5mg BID 7. CAD - Lipitor hs - Lipid panel ordered 8. DM II - ISS, BGM ACHS - hgb ac1 pending 9. HTN - BP controlled - Hold cozaar - Continue coreg 10. COPD - Not in exacerbation 11. Restless leg - Lyrica 12. DVT - SCDs, hold eliquis Visit type - Emergency Visit Emergency Visit: Yes ED Registration Date: 03/17/18 Care time: The patient presented to the Emergency Department on the above date and was hospitalized for further evaluation of their emergent condition. - New Patient This patient is new to me today: Yes Date on this admission: 03/18/18 - Critical Care Critical Care patient: Yes Total Critical Care Time (in minutes): 37 Critical Care Statement: The care of this patient involved high complexity decision making to prevent further life threatening deterioration of the patient 's condition and/or to evaluate & treat vital organ system(s) failure or risk of failure.
--- NOTE | 2018-03-18 11:14 | PN ---
Progress Note, Physician History of Present Illness: The patient is an 82M with a PMH of ashd s/p CABG, paroxysmal a-fib on eliquis, COPD, HTN, stage 3 CKD who presents to the ER with worsening GOLDBERG and shortness of breath. Of note, the patient traveled from [place] 5 days ago by car over 3 days span. The patient does have a history of blood clots. The patient is with his daughter who provides most of the history. The patient states that he has recently had acutely worsened GOLDBERG but denies orthopnea. He denies any SOB while resting. He does state that he becomes dyspneic any time he tries to walk. He denies any CP, fever, chills, nausea, vomiting, swelling in extremities. - Current Medication List Current Medications: Active Medications Albuterol/Ipratropium (Duoneb -) 1 amp NEB Q4H PRN PRN Reason: SHORTNESS OF BREATH Allopurinol (Zyloprim -) 100 mg PO DAILY [facility] Atorvastatin Calcium (Lipitor -) 40 mg PO HS [facility] Last Admin: 03/18/18 01:41 Dose: 40 mg Budesonide/Formoterol Fumarate (Symbicort 160/4.5mcg -) 1 puff IH BID [facility] Last Admin: 03/18/18 10:24 Dose: 1 puff Bumetanide (Bumex -) 2 mg PO DAILY [facility] Carvedilol (Coreg -) 12.5 mg PO BID [facility] Last Admin: 03/18/18 01:41 Dose: 12.5 mg Chlorhexidine Gluconate (Hibiclens For Decolonization -) 1 applic TP HS [facility] Cholecalciferol (Vitamin D3 -) 1,000 unit PO DAILY [facility] Docusate Sodium (Colace -) 100 mg PO DAILY [facility] Ferrous Sulfate (Feosol -) 325 mg PO DAILY [facility] Sodium Chloride (Normal Saline -) 1,000 mls @ 5 mls/hr IV ASDIR [facility] Last Admin: 03/18/18 06:29 Dose: 5 mls/hr Pantoprazole Sodium 160 mg/ (Dextrose) 290 mls @ 14.5 mls/hr IVPB Q20H [facility] Last Admin: 03/18/18 10:19 Dose: 14.5 mls/hr Insulin Aspart (Novolog Vial Sliding Scale -) 1 vial SQ TIDAC [facility] PRN Reason: Protocol Last Admin: 03/18/18 06:30 Dose: Not Given Mupirocin (Bactroban Ointment (For Decolonization) -) 1 applic NS BID [facility] Stop: 03/23/18 09:59 Last Admin: 03/18/18 10:22 Dose: 1 applic Pregabalin (Lyrica -) 75 mg PO BID [facility] Last Admin: 03/17/18 23:17 Dose: Not Given Thiamine HCl (Vitamin B1 -) 100 mg PO DAILY [facility] - Objective Vital Signs: Vital Signs Temperature 97.4 F L 03/18/18 10:00 Pulse Rate 76 03/18/18 10:00 Respiratory Rate 16 03/18/18 10:00 Blood Pressure 124/89 03/18/18 10:00 O2 Sat by Pulse Oximetry (%) 100 03/18/18 09:44 Eyes: Yes: WNL, Conjunctiva Clear, EOM Intact HENT: Yes: WNL, Atraumatic, Normocephalic Neck: Yes: WNL, Supple, Trachea Midline Cardiovascular: Yes: WNL, Regular Rate and Rhythm Respiratory: Yes: WNL, Regular, CTA Bilaterally Gastrointestinal: Yes: WNL, Normal Bowel Sounds Genitourinary: Yes: WNL Musculoskeletal: Yes: WNL Extremities: Yes: WNL Edema: No Integumentary: Yes: WNL Neurological: Yes: WNL, Alert, Oriented ...Motor Strength: WNL Psychiatric: Yes: WNL Labs: CBC, BMP 03/18/18 05:27 03/18/18 05:27 INR, PTT INR 1.08 (0.82-1.09) 03/17/18 20:08 Assessment/Plan ashd s/p CABG, paroxysmal a-fib on eliquis, COPD, HTN, stage 3 CKD who presents to the ER with worsening GOLDBERG and shortness of breath dx wit severe anemia positive TNIs - most likely due to ischemia due to severe anemia due to GI bleed. echo severly reduced ef -26 % [id number] [place] NSVT frequent VPC;'s Plan stop eliquis transfuse up to hct 30 use IV lasix prn to avoid fluid overload patient is high risk for GI workup at present. Since he is not actively bleeding I would recommend correcting HCT up to 30 % , stabilizing patient cardiac vazquez and than proceeding with GI w/u. If patient starts actively bleeding there will be no choice gut to proceed with high risk GI w/u. d/w ICU team cc time 40 min
[2018-03-18] MEDS: FERROUS SO4 325 MG TABLET (FP) PO SCH (11:44)
[2018-03-18] MEDS: PREGABALIN 75 MG CAPSULE PO SCH ×2 (11:44→21:23)
[2018-03-18] MEDS: ALLOPURINOL 100 MG TABLET (FP) PO SCH (11:44)
[2018-03-18] MEDS: CHOLECALCIFEROL (VITAMIN D3) 1,000 UNIT TABLET (FP) PO SCH (11:44)
[2018-03-18] MEDS: THIAMINE HCL 100 MG TABLET (FP) PO SCH (11:45)
[2018-03-18] MEDS: DOCUSATE SODIUM 100 MG CAPSULE (FP) PO SCH (11:45)
--- NOTE | 2018-03-18 12:11 | PN ---
Teaching Attending Note Name of Resident: Charu Souza ATTENDING PHYSICIAN STATEMENT I saw and evaluated the patient. I reviewed the resident's note and discussed the case with the resident. I agree with the resident's findings and plan as documented. SUBJECTIVE: Patient seen and examined in the ICU. Awake and alert. Reports breathing feels much better. No CP or SOB. Another unit of pRBCS is pending. No occult bleeding noted. Intake & Output 03/15/18 03/16/18 03/17/18 03/18/18 23:59 23:59 23:59 23:59 Intake Total 405 Output Total 600 Balance -195 Weight 249 lb 9.6 oz 248 lb 14.4 oz Last Vital Signs Temp Pulse Resp BP Pulse Ox 97.4 F L 76 16 124/89 100 03/18/18 10:00 03/18/18 10:00 03/18/18 10:00 03/18/18 10:00 03/18/18 09:44 Active Medications Albuterol/Ipratropium (Duoneb -) 1 amp NEB Q4H PRN PRN Reason: SHORTNESS OF BREATH Allopurinol (Zyloprim -) 100 mg PO DAILY [facility] Last Admin: 03/18/18 11:44 Dose: 100 mg Atorvastatin Calcium (Lipitor -) 40 mg PO HS [facility] Last Admin: 03/18/18 01:41 Dose: 40 mg Budesonide/Formoterol Fumarate (Symbicort 160/4.5mcg -) 1 puff IH BID [facility] Last Admin: 03/18/18 10:24 Dose: 1 puff Carvedilol (Coreg -) 12.5 mg PO BID [facility] Last Admin: 03/18/18 11:44 Dose: 12.5 mg Chlorhexidine Gluconate (Hibiclens For Decolonization -) 1 applic TP [facility] Cholecalciferol (Vitamin D3 -) 1,000 unit PO DAILY [facility] Last Admin: 03/18/18 11:44 Dose: 1,000 unit Docusate Sodium (Colace -) 100 mg PO DAILY [facility] Last Admin: 03/18/18 11:45 Dose: 100 mg Ferrous Sulfate (Feosol -) 325 mg PO DAILY [facility] Last Admin: 03/18/18 11:44 Dose: 325 mg Furosemide (Lasix Injection -) 40 mg IVPUSH ONCE ONE Stop: 03/18/18 16:01 Sodium Chloride (Normal Saline -) 1,000 mls @ 5 mls/hr IV ASDIR [facility] Last Admin: 03/18/18 06:29 Dose: 5 mls/hr Insulin Aspart (Novolog Vial Sliding Scale -) 1 vial SQ TIDAC [facility] PRN Reason: Protocol Last Admin: 03/18/18 11:57 Dose: Not Given Mupirocin (Bactroban Ointment (For Decolonization) -) 1 applic NS BID [facility] Stop: 03/23/18 09:59 Last Admin: 03/18/18 10:22 Dose: 1 applic Pantoprazole Sodium (Protonix Iv) 40 mg IVPUSH BID [facility] Pregabalin (Lyrica -) 75 mg PO BID [facility] Last Admin: 03/18/18 11:44 Dose: 75 mg Thiamine HCl (Vitamin B1 -) 100 mg PO DAILY [facility] Last Admin: 03/18/18 11:45 Dose: 100 mg Constitutional: Yes: No Distress, Calm, Obese Eyes: Yes: Conjunctiva Clear, (-) Icterus HENT: Yes: Atraumatic, Normocephalic Neck: Yes: Supple, Trachea Midline Cardiovascular: Yes: Pulse Irregular, S1, S2 Respiratory: Yes: Diminished, On Nasal O2 Gastrointestinal: Yes: Normal Bowel Sounds, Soft, Abdomen, Obese Renal/: Yes: WNL Musculoskeletal: Yes: WNL Edema: Yes Edema: LLE: Trace, RLE: Trace Peripheral Pulses WNL: Yes Integumentary: Yes: (-) Rash ...Motor Strength: WNL Psychiatric: Yes: WNL, Alert, Oriented Labs: Laboratory Results - last 24 hr 03/17/18 03/17/18 03/17/18 18:34 18:34 18:34 WBC 5.4 RBC 1.89 L Hgb 6.7 L* Hct 19.7 L MCV 104.2 H MCH 35.7 H MCHC 34.2 RDW 20.7 H Plt Count 126 L MPV 9.0 Neutrophils % 80.2 Lymphocytes % 12.6 Monocytes % 7.0 Eosinophils % 0.1 Basophils % 0.1 Hypochromia 2+ Platelet Estimate Slt decrease Platelet Comment No clumping noted Polychromasia 1+ Anisocytosis 2+ Microcytosis 2+ Macrocytosis 1+ PT with INR INR Sodium 137 Potassium 4.5 Chloride 106 Carbon Dioxide 21 Anion Gap 10 BUN 64 H Creatinine 2.0 H Creat Clearance w eGFR 32.23 POC Glucometer Random Glucose 336 H* Calcium 9.0 Phosphorus Magnesium Total Bilirubin 0.5 AST 19 ALT 22 Alkaline Phosphatase 68 Creatine Kinase 106 Troponin I 1.57 H* B-Natriuretic Peptide 56204.95 H Total Protein 6.3 L Albumin 3.8 Urine Color Urine Appearance Urine pH Ur Specific [place] Urine Protein Urine Glucose (UA) Urine Ketones Urine Blood Urine Nitrite Urine Bilirubin Urine Urobilinogen Ur Leukocyte Esterase Urine Osmolality Ur Random Sodium Ur Random Urea Nitrogn Urine Creatinine Stool Occult Blood Blood Type Antibody Screen Crossmatch 03/17/18 03/17/18 03/17/18 20:00 20:08 20:08 WBC RBC Hgb Hct MCV MCH MCHC RDW Plt Count MPV Neutrophils % Lymphocytes % Monocytes % Eosinophils % Basophils % Hypochromia Platelet Estimate Platelet Comment Polychromasia Anisocytosis Microcytosis Macrocytosis PT with INR 12.20 INR 1.08 Sodium Potassium Chloride Carbon Dioxide Anion Gap BUN Creatinine Creat Clearance w eGFR POC Glucometer Random Glucose Calcium Phosphorus Magnesium Total Bilirubin AST ALT Alkaline Phosphatase Creatine Kinase Troponin I B-Natriuretic Peptide Total Protein Albumin Urine Color Urine Appearance Urine pH Ur Specific [place] Urine Protein Urine Glucose (UA) Urine Ketones Urine Blood Urine Nitrite Urine Bilirubin Urine Urobilinogen Ur Leukocyte Esterase Urine Osmolality Ur Random Sodium Ur Random Urea Nitrogn Urine Creatinine Stool Occult Blood Positive Blood Type Cancelled Antibody Screen Cancelled Crossmatch 03/17/18 03/17/18 03/17/18 20:10 20:55 22:56 WBC RBC Hgb Hct MCV MCH MCHC RDW Plt Count MPV Neutrophils % Lymphocytes % Monocytes % Eosinophils % Basophils % Hypochromia Platelet Estimate Platelet Comment Polychromasia Anisocytosis Microcytosis Macrocytosis PT with INR INR Sodium Potassium Chloride Carbon Dioxide Anion Gap BUN Creatinine Creat Clearance w eGFR POC Glucometer Random Glucose Calcium Phosphorus Magnesium Total Bilirubin AST ALT Alkaline Phosphatase Creatine Kinase Troponin I B-Natriuretic Peptide Total Protein Albumin Urine Color Ltyellow Urine Appearance Clear Urine pH 5.0 Ur Specific [place]rem 1.012 Urine Protein Negative Urine Glucose (UA) 3+ H Urine Ketones Negative Urine Blood Negative Urine Nitrite Negative Urine Bilirubin Negative Urine Urobilinogen Negative Ur Leukocyte Esterase Negative Urine Osmolality Ur Random Sodium Ur Random Urea Nitrogn Urine Creatinine Stool Occult Blood Blood Type A POSITIVE A POSITIVE Antibody Screen Negative Crossmatch See Detail 03/18/18 03/18/18 03/18/18 01:48 02:00 02:00 WBC RBC Hgb Hct MCV MCH MCHC RDW Plt Count MPV Neutrophils % Lymphocytes % Monocytes % Eosinophils % Basophils % Hypochromia Platelet Estimate Platelet Comment Polychromasia Anisocytosis Microcytosis Macrocytosis PT with INR INR Sodium Potassium Chloride Carbon Dioxide Anion Gap BUN Creatinine Creat Clearance w eGFR POC Glucometer [phone] Random Glucose Calcium Phosphorus Magnesium Total Bilirubin AST ALT Alkaline Phosphatase Creatine Kinase Troponin I B-Natriuretic Peptide Total Protein Albumin Urine Color Urine Appearance Urine pH Ur Specific [place] Urine Protein Urine Glucose (UA) Urine Ketones Urine Blood Urine Nitrite Urine Bilirubin Urine Urobilinogen Ur Leukocyte Esterase Urine Osmolality 498 Ur Random Sodium Ur Random Urea Nitrogn 925 Urine Creatinine Stool Occult Blood Blood Type Antibody Screen Crossmatch 03/18/18 03/18/18 03/18/18 02:00 02:00 02:00 WBC RBC Hgb Hct MCV MCH MCHC RDW Plt Count MPV Neutrophils % Lymphocytes % Monocytes % Eosinophils % Basophils % Hypochromia Platelet Estimate Platelet Comment Polychromasia Anisocytosis Microcytosis Macrocytosis PT with INR INR Sodium Potassium Chloride Carbon Dioxide Anion Gap BUN Creatinine Creat Clearance w eGFR POC Glucometer Random Glucose Calcium Phosphorus Magnesium Total Bilirubin AST ALT Alkaline Phosphatase Creatine Kinase 100 Troponin I 1.94 H* B-Natriuretic Peptide Total Protein Albumin Urine Color Urine Appearance Urine pH Ur Specific [place] Urine Protein Urine Glucose (UA) Urine Ketones Urine Blood Urine Nitrite Urine Bilirubin Urine Urobilinogen Ur Leukocyte Esterase Urine Osmolality Ur Random Sodium 23 Ur Random Urea Nitrogn Urine Creatinine 111.0 Stool Occult Blood Blood Type Antibody Screen Crossmatch 03/18/18 03/18/18 03/18/18 05:27 05:27 05:57 WBC 7.3 D RBC 2.11 L Hgb 7.4 L D Hct 20.9 L MCV 99.0 H MCH 34.8 H MCHC 35.2 RDW 24.1 H D Plt Count 118 L MPV 8.9 Neutrophils % Lymphocytes % Monocytes % Eosinophils % Basophils % Hypochromia Platelet Estimate Platelet Comment Polychromasia Anisocytosis Microcytosis Macrocytosis PT with INR INR Sodium 143 Potassium 3.9 Chloride 109 H Carbon Dioxide 27 D Anion Gap 7 L BUN 64 H Creatinine 1.9 H Creat Clearance w eGFR POC Glucometer Random Glucose 94 D Calcium 8.9 Phosphorus 4.4 Magnesium 2.4 Total Bilirubin AST ALT Alkaline Phosphatase Creatine Kinase 95 Troponin I 1.80 H* B-Natriuretic Peptide Total Protein Albumin Urine Color Urine Appearance Urine pH Ur Specific [place] Urine Protein Urine Glucose (UA) Urine Ketones Urine Blood Urine Nitrite Urine Bilirubin Urine Urobilinogen Ur Leukocyte Esterase Urine Osmolality Ur Random Sodium Ur Random Urea Nitrogn Urine Creatinine Stool Occult Blood Blood Type Antibody Screen Crossmatch 03/18/18 06:26 WBC RBC Hgb Hct MCV MCH MCHC RDW Plt Count MPV Neutrophils % Lymphocytes % Monocytes % Eosinophils % Basophils % Hypochromia Platelet Estimate Platelet Comment Polychromasia Anisocytosis Microcytosis Macrocytosis PT with INR INR Sodium Potassium Chloride Carbon Dioxide Anion Gap BUN Creatinine Creat Clearance w eGFR POC Glucometer [phone] Random Glucose Calcium Phosphorus Magnesium Total Bilirubin AST ALT Alkaline Phosphatase Creatine Kinase Troponin I B-Natriuretic Peptide Total Protein Albumin Urine Color Urine Appearance Urine pH Ur Specific [place] Urine Protein Urine Glucose (UA) Urine Ketones Urine Blood Urine Nitrite Urine Bilirubin Urine Urobilinogen Ur Leukocyte Esterase Urine Osmolality Ur Random Sodium Ur Random Urea Nitrogn Urine Creatinine Stool Occult Blood Blood Type Antibody Screen Crossmatch Problem List - Problems (1) GIB (gastrointestinal bleeding) Code(s): K92.2 - GASTROINTESTINAL HEMORRHAGE, UNSPECIFIED (2) CHF exacerbation Code(s): I50.9 - HEART FAILURE, UNSPECIFIED (3) Anemia Code(s): D64.9 - ANEMIA, UNSPECIFIED Qualifiers: Anemia type: unspecified type Qualified Code(s): D64.9 - Anemia, unspecified (4) Dyspnea on exertion Code(s): R06.09 - OTHER FORMS OF DYSPNEA Assessment/Plan Afib on eliquis COPD HTN Stage 3 CKD CAD History of AMI s/p stents CABG DM Colon CA Hx of DVT Demand ischemia Hyperglycemia. Plan: -GI consult -Maintain large bore IV -PPI IV BID -Serial CBC -Transfuse 1U PRBC for Hgb<7 -Lasix diuresis with blood -Hold other IVF for now -NPO -NC O2 for O2 sat >92% -BD TX -Hold anticoag and ASA -SCDs Dr Burnette Critical care time spent in reviewing chart, evaluating patient and formulating plan - 36 minutes.
--- NOTE | 2018-03-18 13:04 | EKG ---
Test Reason : Blood Pressure : / mmHG Vent. Rate : 080 BPM Atrial Rate : 080 BPM P-R Int : 190 ms QRS Dur : 086 ms QT Int : 398 ms P-R-T Axes : 043 -04 144 degrees QTc Int : 459 ms SINUS RHYTHM WITH FREQUENT PREMATURE VENTRICULAR COMPLEXES IN A PATTERN OF BIGEMINY INFERIOR INFARCT (CITED ON OR BEFORE 18-MAR-2018) ABNORMAL ECG WHEN COMPARED WITH ECG OF 18-MAR-2018 09:50, NO SIGNIFICANT CHANGE WAS FOUND Confirmed by SEPIDEH KING MD ([id number]) on 03/18/2018 1:04:30 PM Referred By: CHRISTINE LARSON DR Confirmed By:SEPIDEH KING MD
[2018-03-18] MEDS ORDERED: PT OWN MED DRAWER 7, Y5N ONE (21:20)
[2018-03-18] MEDS: PANTOPRAZOLE SODIUM 40 MG VIAL IVPUSH SCH (21:23)
[2018-03-18] MEDS: CHLORHEXIDINE GLUCONATE 4% CLEANSER FOR DECOLONIZATION TP SCH (21:23)
[2018-03-19 06:27] LABS: HEMATOCRIT 24.2 % (35.4-49); HEMOGLOBIN 8.5 GM/dL (11.7-16.9); MCH 33.7 pg (25.7-33.7); MEAN CELL VOLUME 96.2 fl (80-96); MEAN PLT VOLUME 9.6 fl (7.5-11.1); PLATELET COUNT 103 K/MM3 (134-434); RBC 2.52 M/mm3 (4.00-5.60); RDW 22.1 % (11.9-15.9); WHITE BLOOD COUNT 7.8 K/mm3 (4.0-10.0)
[2018-03-19] MEDS: SODIUM CHLORIDE 1,000 ML IV SCH (06:29)
[2018-03-19] MEDS: INSULIN SLIDING SCALE (NOVOLOG) 1 VIAL SQ SCH ×3 (06:36→17:47)
[2018-03-19 07:07] LABS: ANION GAP 8 (8-16); BLOOD UREA NITROGEN 57 mg/dL (7-18); CALCIUM 8.7 mg/dL (8.5-10.1); CHLORIDE 109 mmol/L (98-107); CO2 26 mmol/L (21-32); GLUCOSE,RANDOM 100 mg/dL (74-106); MAGNESIUM 2.2 mg/dL (1.8-2.4); POTASSIUM 3.6 mmol/L (3.5-5.1); SODIUM 143 mmol/L (136-145)
[2018-03-19 07:11] LABS: CHOLESTEROL 131 mg/dL (50-200); CREATININE 1.7 mg/dL (0.7-1.3); HDL CHOLESTEROL 34 mg/dL (40-60); PHOSPHOROUS 4.8 mg/dL (2.5-4.9); TRIGLYCERIDES 125 mg/dL (35-160)
--- NOTE | 2018-03-19 07:32 | PN ---
Progress Note (short form) - Note Progress Note: Yest: Received 2nd prbc. Echo shows 26% EF. Given Lasix 40mg x2 yesterday. Will assess response and redose GI procedure held for cardiac risk. S: No complaints. SOB w/ exertion, adelaida when going to bathroom, so chi was placed Dark stool x1. Responded well to 2nd prbc but HCT still <30. Will give another unit slowly CXR improved. O: Vital Signs Period Temp Pulse Resp BP Sys/Winslow Pulse Ox Last 24 Hr 97.4 F-98.4 F 82-100 16-22 109-153/56-88 97-100 GEN: AAOx3, NAD, Difficulty breathing with long conversation HEENT: Pale, PERRLA, EOMi, no JVD CV: S1, S2, irregularly irregular rhythm LUNG: Bibasilar crackles, decreased from yesterday ABD: Obese, soft, NT, ND, normoactive BS MSK: No edema, no erythema NEURO: CN 2-12, intact, no sensation or msk deficits A/P: 82yo M with PMHx of Afib (on Eliquis), DVT, COPD, Stage 3 CKD, hx of colon CA s/ p resection who presented w/ SOB, found to be anemic w/ elevated trops. # SOB -- Likely 2/2 anemia since improving w/ transfusion. CHF likely also contributing. Less likely PE, Wells score is 3 and duplex negative. Unable to do CTA due to CKD, if still suspicious can do VQ. # Macrocytic Anemia -- Could be 2/2 GI bleed, has dark stool w/ +FOBT. Eliquis held. Protonix ggt started. Transfused 2 units. -- GI Dr Martino to perform upper EGD hopefully friday, however cardio says patient is high risk and would like HCT >30. Will transfuse another unit slowly. # Systolic CHF Exac. -- told RN that patient hadn't taken home diuretic since d/c from rehab. Echo shows 26% EF. Currently neg balance. Hold ACEi. Continue Lasix 40 BID # CKD Stage 3 vs TYLER? -- Improving w/ diuresis. Possibly prerenal from CHF. Continue lasix. Hold ACEi. Avoid nephrotoxins # Elevated Trops -- Liekly demand from anemia. Trops peaked. No CP. EKG no ST/T changes. # CAD -- S/p quadruple bypass. Hold ASA for GIB # Hx of Colon CA -- Diagnosed in . Lost to followup. Needs outpatient colonoscopy # Afib -- Rate controlled. C/w coreg. Eliquis held due to GIB. # COPD -- Not in exacerbation. Nebs prn. Long acting symbicort # DM -- BGMs and ISS achs. A1C # FEN/pPx -- No ivf, clears, SCDs # Dispo -- Transfer to tele. D/w [facility] primary team Charu Souza MD - pGY1 ICU Resident
[2018-03-19 08:07] LABS: SERUM IRON SATURATION 17 % (15-55); TOTAL IRON BINDING CAPACITY 331 ug/dL (250-450); UIBC 276 ug/dL (111-343)
--- NOTE | 2018-03-19 08:45 | PN ---
Physical Exam: SUBJECTIVE: Patient seen and examined in ICU. Pt states he feels the same, he is sob when he gets up to ambulate. OBJECTIVE: Vital Signs Period Temp Pulse Resp BP Sys/Winslow Pulse Ox Last 24 Hr 97.3 F-98.2 F 76-98 16-27 97-131/56-97 100-100 PE Neuro: alert, awake, cn 2-12intact Pulm: basilar crackles CV: s1 s2 irregular rhythm Abd: s nt nd +bs : chi Ext: warm, no le edema Laboratory Results - last 24 hr 03/17/18 03/17/18 03/18/18 18:34 20:55 05:57 WBC RBC Hgb Hct MCV MCH MCHC RDW Plt Count MPV Sodium Potassium Chloride Carbon Dioxide Anion Gap BUN Creatinine POC Glucometer Random Glucose Calcium Phosphorus Magnesium Iron 55 TIBC 331 Iron Saturation 17 Creatine Kinase 95 Troponin I 1.80 H* Triglycerides Cholesterol Total LDL Cholesterol HDL Cholesterol Vitamin B12 Serum Folate Blood Type A POSITIVE Antibody Screen Negative Crossmatch See Detail 03/18/18 03/18/18 03/19/18 05:57 16:45 05:30 WBC RBC Hgb Hct MCV MCH MCHC RDW Plt Count MPV Sodium 143 Potassium 3.6 Chloride 109 H Carbon Dioxide 26 Anion Gap 8 BUN 57 H Creatinine 1.7 H POC Glucometer [phone] Random Glucose 100 Calcium 8.7 Phosphorus 4.8 Magnesium 2.2 Iron TIBC Iron Saturation Creatine Kinase Troponin I Triglycerides 125 Cholesterol 131 Total LDL Cholesterol 87 HDL Cholesterol 34 L Vitamin B12 361 Serum Folate 12 Blood Type Antibody Screen Crossmatch 03/19/18 03/19/18 05:30 07:57 WBC 7.8 RBC 2.52 L Hgb 8.5 L D Hct 24.2 L D MCV 96.2 H MCH 33.7 MCHC 35.0 RDW 22.1 H Plt Count 103 L MPV 9.6 Sodium Potassium Chloride Carbon Dioxide Anion Gap BUN Creatinine POC Glucometer [phone] Random Glucose Calcium Phosphorus Magnesium Iron TIBC Iron Saturation Creatine Kinase Troponin I Triglycerides Cholesterol Total LDL Cholesterol HDL Cholesterol Vitamin B12 Serum Folate Blood Type Antibody Screen Crossmatch Active Medications Generic Name Dose Route Start Last Admin Trade Name Freq PRN Reason Stop Dose Admin Albuterol/Ipratropium 1 amp 03/17/18 23:13 Duoneb - NEB Q4H PRN SHORTNESS OF BREATH Allopurinol 100 mg 03/18/18 10:00 03/18/18 11:44 Zyloprim - PO 100 mg DAILY [facility] Administration Atorvastatin Calcium 40 mg 03/17/18 23:20 03/18/18 21:23 Lipitor - PO 40 mg HS [facility] Administration Budesonide/Formoterol Fumarate 1 puff 03/18/18 10:00 03/18/18 21:23 Symbicort 160/4.5mcg - IH 1 puff BID [facility] Administration Carvedilol 12.5 mg 03/17/18 23:30 03/18/18 21:23 Coreg - PO 12.5 mg BID [facility] Administration Chlorhexidine Gluconate 1 applic 03/18/18 22:00 03/18/18 21:23 Hibiclens For Decolonization - TP 1 applic HS [facility] Administration Cholecalciferol 1,000 unit 03/18/18 10:00 03/18/18 11:44 Vitamin D3 - PO 1,000 unit DAILY [facility] Administration Docusate Sodium 100 mg 03/18/18 10:00 03/18/18 11:45 Colace - PO 100 mg DAILY [facility] Administration Ferrous Sulfate 325 mg 03/18/18 10:00 03/18/18 11:44 Feosol - PO 325 mg DAILY [facility] Administration Furosemide 40 mg 03/19/18 09:00 Lasix Injection - IVPUSH BID@0900,1400 [facility] Sodium Chloride 1,000 mls @ 5 mls/hr 03/18/18 06:05 03/19/18 06:29 Normal Saline - IV Not Given ASDIR [facility] Insulin Aspart 1 vial 03/17/18 23:15 03/19/18 06:36 Novolog Vial Sliding Scale - SQ Not Given TIDAC [facility] Protocol Mupirocin 1 applic 03/18/18 10:00 03/18/18 21:23 Bactroban Ointment (For Decolonization) - NS 03/23/18 09:59 1 applic BID [facility] Administration Pantoprazole Sodium 40 mg 03/18/18 22:00 03/18/18 21:23 Protonix Iv IVPUSH 40 mg BID [facility] Administration Pregabalin 75 mg 03/17/18 23:15 03/18/18 21:23 Lyrica - PO 75 mg BID [facility] Administration Thiamine HCl 100 mg 03/18/18 10:00 03/18/18 11:45 Vitamin B1 - PO 100 mg DAILY [facility] Administration Assessment: 82 year old male with a pmhx afib (on eliquis), COPD, HTN, stage 3 CKD, CAD, DM, Colon CA, hx of DVT admitted with dyspnea on exertion, anemia and elevated troponin. Plan: 1. Symptomatic anemia d/t GIB - Total 2uprbc transfused - Give additional unit today with lasix, check cbc post transfusion, give additional to medical optimize for GI scoping - For upper and lower gi scope once hct 30% - Hold Eliquis - On fe supplements - D/w ICU resident 2. GIB - Will need EGD/colonoscopy pending rise in hct - Switch to Protonix BID - Continue clears, if hct ~30% make NPO after midnight - GI seeing 3. Acute CHF exacerbation - Improving - Dose Lasix 40mg BID IV - ECHO LVSF severely RVSF 40-50mmhg, anterior/septal wall akinesis, mod mr, low EF - Redose x1 lasix 40mg IV BID today - Replete K and Mg + 4. TYLER on ?CKD - Baseline unknown - Cr improved - FEUrea 24% indicates pre renal - Renal us when stable or cr rises 5. Elevated trops - Likely demand - Trops elevated, however down trending - Cardiology following 6. A fib - Rate controlled - Hold eliquis - Continue coreg 12.5mg BID 7. CAD - Lipitor hs - Lipid panel noted 8. DM II - ISS, BGM ACHS - hgb ac1 pending 9. HTN - BP controlled - Hold cozaar - Continue coreg 10. COPD - Not in exacerbation 11. Restless leg - Lyrica 12. DVT - SCDs, hold eliquis Visit type - Emergency Visit Emergency Visit: Yes ED Registration Date: 03/17/18 Care time: The patient presented to the Emergency Department on the above date and was hospitalized for further evaluation of their emergent condition. - New Patient This patient is new to me today: No - Critical Care Critical Care patient: No
[2018-03-19] MEDS: MUPIROCIN 2% TOPICAL OINTMENT FOR DECOLONIZATION NS SCH ×2 (09:32→21:37)
[2018-03-19] MEDS: CARVEDILOL 12.5 MG TABLET (FP) PO SCH ×2 (09:32→21:39)
[2018-03-19] MEDS: FUROSEMIDE 40 MG/4 ML INJECTABLE VIAL IVPUSH SCH ×2 (09:32→13:12)
[2018-03-19] MEDS: ALLOPURINOL 100 MG TABLET (FP) PO SCH (09:32)
[2018-03-19] MEDS: PANTOPRAZOLE SODIUM 40 MG VIAL IVPUSH SCH ×2 (09:32→21:39)
[2018-03-19] MEDS: PREGABALIN 75 MG CAPSULE PO SCH ×2 (09:33→21:39)
[2018-03-19] MEDS: FERROUS SO4 325 MG TABLET (FP) PO SCH (09:33)
[2018-03-19] MEDS: BUDESONIDE/FORMETEROL FUMARATE 160/4.5 mcg INHALER IH SCH ×2 (09:33→21:54)
[2018-03-19] MEDS: DOCUSATE SODIUM 100 MG CAPSULE (FP) PO SCH (09:33)
[2018-03-19] MEDS: THIAMINE HCL 100 MG TABLET (FP) PO SCH (09:33)
[2018-03-19] MEDS ORDERED: FUROSEMIDE 40 MG/4 ML INJECTABLE VIAL IVPUSH SCH (10:00)
[2018-03-19] MEDS: CHOLECALCIFEROL (VITAMIN D3) 1,000 UNIT TABLET (FP) PO SCH (10:03)
--- NOTE | 2018-03-19 12:11 | PN ---
Teaching Attending Note Name of Resident: Charu Souza ATTENDING PHYSICIAN STATEMENT I saw and evaluated the patient. I reviewed the resident's note and discussed the case with the resident. I agree with the resident's findings and plan as documented. SUBJECTIVE: Patient seen and examined in the ICU. Awake and alert. Reports breathing feels stable. Receiving additional pRBCs. No CP or SOB. No occult bleeding noted. Intake & Output 03/16/18 03/17/18 03/18/18 03/19/18 23:59 23:59 23:59 23:59 Intake Total 1355 150 Output Total 2100 500 Balance -745 -350 Weight 249 lb 9.6 oz 248 lb 14.4 oz 246 lb 3.2 oz Last Vital Signs Temp Pulse Resp BP Pulse Ox 98.4 F 93 H 18 142/76 100 03/19/18 10:00 03/19/18 10:00 03/19/18 10:00 03/19/18 10:00 03/19/18 08:29 Active Medications Albuterol/Ipratropium (Duoneb -) 1 amp NEB Q4H PRN PRN Reason: SHORTNESS OF BREATH Allopurinol (Zyloprim -) 100 mg PO DAILY [facility] Last Admin: 03/19/18 09:32 Dose: 100 mg Atorvastatin Calcium (Lipitor -) 40 mg PO HS [facility] Last Admin: 03/18/18 21:23 Dose: 40 mg Budesonide/Formoterol Fumarate (Symbicort 160/4.5mcg -) 1 puff IH BID [facility] Last Admin: 03/19/18 09:33 Dose: 1 puff Carvedilol (Coreg -) 12.5 mg PO BID [facility] Last Admin: 03/19/18 09:32 Dose: 12.5 mg Chlorhexidine Gluconate (Hibiclens For Decolonization -) 1 applic TP HS [facility] Last Admin: 03/18/18 21:23 Dose: 1 applic Cholecalciferol (Vitamin D3 -) 1,000 unit PO DAILY [facility] Last Admin: 03/19/18 10:03 Dose: 1,000 unit Docusate Sodium (Colace -) 100 mg PO DAILY [facility] Last Admin: 03/19/18 09:33 Dose: Not Given Ferrous Sulfate (Feosol -) 325 mg PO DAILY [facility] Last Admin: 03/19/18 09:33 Dose: 325 mg Furosemide (Lasix Injection -) 40 mg IVPUSH BID@0900,1400 [facility] Last Admin: 03/19/18 09:32 Dose: 40 mg Insulin Aspart (Novolog Vial Sliding Scale -) 1 vial SQ TIDAC [facility] PRN Reason: Protocol Last Admin: 03/19/18 06:36 Dose: Not Given Magnesium Sulfate (Magnesium Sulfate) 1 gm IVPB ONCE ONE Stop: 03/19/18 11:55 Mupirocin (Bactroban Ointment (For Decolonization) -) 1 applic NS BID [facility] Stop: 03/23/18 09:59 Last Admin: 03/19/18 09:32 Dose: 1 applic Pantoprazole Sodium (Protonix Iv) 40 mg IVPUSH BID [facility] Last Admin: 03/19/18 09:32 Dose: 40 mg Potassium Chloride (K-Dur -) 20 meq PO ONCE ONE Stop: 03/19/18 11:55 Pregabalin (Lyrica -) 75 mg PO BID [facility] Last Admin: 03/19/18 09:33 Dose: 75 mg Thiamine HCl (Vitamin B1 -) 100 mg PO DAILY [facility] Last Admin: 03/19/18 09:33 Dose: 100 mg Constitutional: Yes: No Distress, Calm, Obese Eyes: Yes: Conjunctiva Clear, (-) Icterus HENT: Yes: Atraumatic, Normocephalic Neck: Yes: Supple, Trachea Midline Cardiovascular: Yes: Pulse Irregular, S1, S2 Respiratory: Yes: Diminished, On Nasal O2 Gastrointestinal: Yes: Normal Bowel Sounds, Soft, Abdomen, Obese Renal/: Yes: WNL Musculoskeletal: Yes: WNL Edema: Yes Edema: LLE: Trace, RLE: Trace Peripheral Pulses WNL: Yes Integumentary: Yes: (-) Rash ...Motor Strength: WNL Psychiatric: Yes: WNL, Alert, Oriented Labs: Laboratory Results - last 24 hr 03/17/18 03/17/18 03/18/18 18:34 20:55 05:57 WBC RBC Hgb Hct MCV MCH MCHC RDW Plt Count MPV Sodium Potassium Chloride Carbon Dioxide Anion Gap BUN Creatinine POC Glucometer Random Glucose Calcium Phosphorus Magnesium Iron 55 TIBC 331 Iron Saturation 17 Triglycerides Cholesterol Total LDL Cholesterol HDL Cholesterol Vitamin B12 361 Serum Folate 12 Blood Type A POSITIVE Antibody Screen Negative Crossmatch See Detail 03/18/18 03/19/18 03/19/18 16:45 05:30 05:30 WBC 7.8 RBC 2.52 L Hgb 8.5 L D Hct 24.2 L D MCV 96.2 H MCH 33.7 MCHC 35.0 RDW 22.1 H Plt Count 103 L MPV 9.6 Sodium 143 Potassium 3.6 Chloride 109 H Carbon Dioxide 26 Anion Gap 8 BUN 57 H Creatinine 1.7 H POC Glucometer [phone] Random Glucose 100 Calcium 8.7 Phosphorus 4.8 Magnesium 2.2 Iron TIBC Iron Saturation Triglycerides 125 Cholesterol 131 Total LDL Cholesterol 87 HDL Cholesterol 34 L Vitamin B12 Serum Folate Blood Type Antibody Screen Crossmatch 03/19/18 07:57 WBC RBC Hgb Hct MCV MCH MCHC RDW Plt Count MPV Sodium Potassium Chloride Carbon Dioxide Anion Gap BUN Creatinine POC Glucometer [phone] Random Glucose Calcium Phosphorus Magnesium Iron TIBC Iron Saturation Triglycerides Cholesterol Total LDL Cholesterol HDL Cholesterol Vitamin B12 Serum Folate Blood Type Antibody Screen Crossmatch Problem List - Problems (1) GIB (gastrointestinal bleeding) Code(s): K92.2 - GASTROINTESTINAL HEMORRHAGE, UNSPECIFIED (2) CHF exacerbation Code(s): I50.9 - HEART FAILURE, UNSPECIFIED (3) Anemia Code(s): D64.9 - ANEMIA, UNSPECIFIED Qualifiers: Anemia type: unspecified type Qualified Code(s): D64.9 - Anemia, unspecified (4) Dyspnea on exertion Code(s): R06.09 - OTHER FORMS OF DYSPNEA Assessment/Plan Afib on eliquis COPD HTN Stage 3 CKD CAD History of AMI s/p stents CABG DM Colon CA Hx of DVT Demand ischemia Hyperglycemia. Plan: -GI noted, for possible endoscopic evaluation tomorrow -Maintain large bore IV -PPI IV BID -Serial CBC -Transfuse 1U PRBC for Hgb<7 -Lasix diuresis with blood -NPO -NC O2 for O2 sat >92% -BD TX -Hold anticoag and ASA -SCDs -Cardiac Telemetry monitoring Dr Burnette Critical care time spent in reviewing chart, evaluating patient and formulating plan - 36 minutes.
[2018-03-19] MEDS ORDERED: POTASSIUM CHLORIDE TABS 20 MEQ TABLET.ER (FP) PO ONE ×2 (12:30→18:00)
[2018-03-19] MEDS ORDERED: MAGNESIUM 1GM/D5W 100ML - 100 ML IVPB IVPB ONE (12:30)
--- NOTE | 2018-03-19 13:11 | PN ---
Progress Note, Physician Chief Complaint: Pt A&Ox3; no chest pain; no dyspnea as long as he does not move. Pt's is at bedside. History of Present Illness: The patient is an 82 white man with a PMH of CAD (x/p AK in 2016 -->CABG), ?a- fib on eliquis, COPD, HTN, stage 3 CKD who presents to the ER with worsening GOLDBERG and shortness of breath. Of note, the patient traveled from [place] 5 days ago by car over 3 days span. The patient does have a history of blood clots. The patient is with his daughter who provides most of the history. The patient states that he has recently had acutely worsened GOLDBERG but denies orthopnea. He denies any SOB while resting. He does state that he becomes dyspneic any time he tries to walk. He denies any CP, fever, chills, nausea, vomiting, swelling in extremities. <Brenden Sapp - Last Filed: 03/17/18 21:50> - Current Medication List Current Medications: Active Medications Albuterol/Ipratropium (Duoneb -) 1 amp NEB Q4H PRN PRN Reason: SHORTNESS OF BREATH Allopurinol (Zyloprim -) 100 mg PO DAILY [facility] Last Admin: 03/19/18 09:32 Dose: 100 mg Atorvastatin Calcium (Lipitor -) 40 mg PO HS [facility] Last Admin: 03/18/18 21:23 Dose: 40 mg Budesonide/Formoterol Fumarate (Symbicort 160/4.5mcg -) 1 puff IH BID [facility] Last Admin: 03/19/18 09:33 Dose: 1 puff Carvedilol (Coreg -) 12.5 mg PO BID [facility] Last Admin: 03/19/18 09:32 Dose: 12.5 mg Chlorhexidine Gluconate (Hibiclens For Decolonization -) 1 applic TP HS [facility] Last Admin: 03/18/18 21:23 Dose: 1 applic Cholecalciferol (Vitamin D3 -) 1,000 unit PO DAILY [facility] Last Admin: 03/19/18 10:03 Dose: 1,000 unit Docusate Sodium (Colace -) 100 mg PO DAILY [facility] Last Admin: 03/19/18 09:33 Dose: Not Given Ferrous Sulfate (Feosol -) 325 mg PO DAILY [facility] Last Admin: 03/19/18 09:33 Dose: 325 mg Furosemide (Lasix Injection -) 40 mg IVPUSH BID@0900,1400 [facility] Last Admin: 03/19/18 09:32 Dose: 40 mg Insulin Aspart (Novolog Vial Sliding Scale -) 1 vial SQ TIDAC [facility] PRN Reason: Protocol Last Admin: 03/19/18 12:26 Dose: 2 units Mupirocin (Bactroban Ointment (For Decolonization) -) 1 applic NS BID [facility] Stop: 03/23/18 09:59 Last Admin: 03/19/18 09:32 Dose: 1 applic Pantoprazole Sodium (Protonix Iv) 40 mg IVPUSH BID [facility] Last Admin: 03/19/18 09:32 Dose: 40 mg Potassium Chloride (K-Dur -) 20 meq PO ONCE ONE Stop: 03/19/18 18:01 Pregabalin (Lyrica -) 75 mg PO BID [facility] Last Admin: 03/19/18 09:33 Dose: 75 mg Thiamine HCl (Vitamin B1 -) 100 mg PO DAILY [facility] Last Admin: 03/19/18 09:33 Dose: 100 mg - Objective Vital Signs: Vital Signs Temperature 98.4 F 03/19/18 10:00 Pulse Rate 93 H 03/19/18 12:00 Respiratory Rate 18 03/19/18 12:00 Blood Pressure 134/69 03/19/18 12:00 O2 Sat by Pulse Oximetry (%) 100 03/19/18 08:29 Constitutional: Yes: Calm Eyes: Yes: WNL HENT: Yes: WNL Cardiovascular: Yes: S1 (varies in intensity), S2 (splite) Respiratory: Yes: Diminished, Rales Gastrointestinal: Yes: Soft ...Rectal Exam: Yes: Deferred Genitourinary: No: Anuria Musculoskeletal: Yes: Muscle Weakness Extremities: Yes: Cool Edema: No Peripheral Pulses WNL: Yes Integumentary: Yes: WNL Neurological: Yes: Alert, Oriented Psychiatric: Yes: WNL Labs: CBC, BMP 03/19/18 05:30 03/19/18 05:30 INR, PTT INR 1.08 (0.82-1.09) 03/17/18 20:08 Abnormal Lab Results 03/17/18 03/19/18 03/19/18 20:55 05:30 05:30 RBC 2.52 L Hgb 8.5 L D Hct 24.2 L D MCV 96.2 H RDW 22.1 H Plt Count 103 L Chloride 109 H BUN 57 H Creatinine 1.7 H HDL Cholesterol 34 L Crossmatch See Detail 03/19/18 15:15 RBC 3.26 L D Hgb 10.7 L D Hct 30.4 L D MCV RDW 21.8 H Plt Count 97 L Chloride BUN Creatinine HDL Cholesterol Crossmatch - ....Imaging Chest X-ray: Image Reviewed EKG: Image Reviewed Problem List - Problems (1) Acute on chronic systolic (congestive) heart failure Assessment/Plan: severely reduced LVEF on ECHO. +JVD CXR: bilateral congestion ECHO: severely reduced LVEF; moderate LVE; mod-severe TR with moderate pulmonary HTN; mild AR; apical/apical-septal/apical-anterior akinesis. Rec: Continue carvedilol Restart pt's home losartan 25 mg daily (Creatinine Clearance presently 53). Plan to start spironolactone if BUN/Cr and electrolytes allow. On IV furosemide 40 mg bid; give dose immediately after PRBC transfusion, and may require an additional (3rd dose today) later in the evening. F/u BUN/Cr, electrolytes, Is and Os, daily weight. Consider ICD if LVEF does not improve several weeks after medication optimization. Code(s): I50.23 - ACUTE ON CHRONIC SYSTOLIC (CONGESTIVE) HEART FAILURE (2) COPD (chronic obstructive pulmonary disease) Assessment/Plan: On SYmbicort. Quit cigarettes >30 years ago. Code(s): J44.9 - CHRONIC OBSTRUCTIVE PULMONARY DISEASE, UNSPECIFIED (3) Coronary artery disease Assessment/Plan: s/p CABG after AK in 2016. On statin. Pt has been sedentary for years. Severely reduced LVEF; pt was unaware of having CHF, though had been on carvedilol, losartan, and Bumex. Code(s): I25.10 - ATHSCL HEART DISEASE OF [place] CORONARY ARTERY W/O ANG PCTRS (4) GIB (gastrointestinal bleeding) Assessment/Plan: Receiving PRBCs. For EGD/colonoscopy. Restart apixaban as soon as possible. Code(s): K92.2 - GASTROINTESTINAL HEMORRHAGE, UNSPECIFIED (5) Gout Code(s): M10.9 - GOUT, UNSPECIFIED (6) History of colon cancer Code(s): Z85.038 - PERSONAL HISTORY OF MALIGNANT NEOPLASM OF LARGE INTESTINE
[2018-03-19 13:31] LABS: OSMOLALITY,SERUM 304 mosm/kg (278-305)
--- NOTE | 2018-03-19 13:54 | PN ---
Progress Note (short form) - Note Progress Note: Discussed w/ Dr Martino and Dr Alicia about scope. Pt already received 2u PRBC yesterday. Receiving 3rd today. Will repeat CBC. If HCT is <30, plan to transfuse another (4th) unit and repeat CBC until HCT >30 If HCT is >30, plan to order prep for colonoscopy: Golytely 4,000 once AND Bisacodyl 20mg once Dr Alicia also restarted on home Losartan (was held due to possible TYLER) due to severe ischemic CM and later Aldactone if patient tolerates the ARB. He also discussed defibrillator w/ the patient for mcc mgmt.
[2018-03-19] MEDS ORDERED: LOSARTAN POTASSIUM 25 MG TABLET PO ONE (13:55)
--- NOTE | 2018-03-19 16:27 | PN ---
Progress Note, Physician History of Present Illness: Clinically the same. Melanotic stools. at bedside. Discussed with cardiology. High risk for endoscopy due to significantly decreased LVEF - Current Medication List Current Medications: Active Medications Albuterol/Ipratropium (Duoneb -) 1 amp NEB Q4H PRN PRN Reason: SHORTNESS OF BREATH Allopurinol (Zyloprim -) 100 mg PO DAILY [facility] Last Admin: 03/19/18 09:32 Dose: 100 mg Atorvastatin Calcium (Lipitor -) 40 mg PO HS [facility] Last Admin: 03/18/18 21:23 Dose: 40 mg Budesonide/Formoterol Fumarate (Symbicort 160/4.5mcg -) 1 puff IH BID [facility] Last Admin: 03/19/18 09:33 Dose: 1 puff Carvedilol (Coreg -) 12.5 mg PO BID [facility] Last Admin: 03/19/18 09:32 Dose: 12.5 mg Chlorhexidine Gluconate (Hibiclens For Decolonization -) 1 applic TP [facility] Last Admin: 03/18/18 21:23 Dose: 1 applic Cholecalciferol (Vitamin D3 -) 1,000 unit PO DAILY [facility] Last Admin: 03/19/18 10:03 Dose: 1,000 unit Docusate Sodium (Colace -) 100 mg PO DAILY [facility] Last Admin: 03/19/18 09:33 Dose: Not Given Ferrous Sulfate (Feosol -) 325 mg PO DAILY [facility] Last Admin: 03/19/18 09:33 Dose: 325 mg Furosemide (Lasix Injection -) 40 mg IVPUSH BID@0900,1400 [facility] Last Admin: 03/19/18 13:12 Dose: 40 mg Insulin Aspart (Novolog Vial Sliding Scale -) 1 vial SQ TIDAC [facility] PRN Reason: Protocol Last Admin: 03/19/18 12:26 Dose: 2 units Losartan Potassium (Cozaar -) 25 mg PO DAILY [facility] Mupirocin (Bactroban Ointment (For Decolonization) -) 1 applic NS BID [facility] Stop: 03/23/18 09:59 Last Admin: 03/19/18 09:32 Dose: 1 applic Pantoprazole Sodium (Protonix Iv) 40 mg IVPUSH BID [facility] Last Admin: 03/19/18 09:32 Dose: 40 mg Potassium Chloride (K-Dur -) 20 meq PO ONCE ONE Stop: 05/10/18 18:01 Pregabalin (Lyrica -) 75 mg PO BID [facility] Last Admin: 03/19/18 09:33 Dose: 75 mg Thiamine HCl (Vitamin B1 -) 100 mg PO DAILY [facility] Last Admin: 03/19/18 09:33 Dose: 100 mg - Objective Vital Signs: Vital Signs Temperature 98.4 F 03/19/18 10:00 Pulse Rate 86 03/19/18 14:00 Respiratory Rate 19 03/19/18 14:00 Blood Pressure 124/57 03/19/18 14:00 O2 Sat by Pulse Oximetry (%) 100 03/19/18 08:29 Labs: CBC, BMP 03/19/18 05:30 INR, PTT INR 1.08 (0.82-1.09) 03/17/18 20:08 Problem List - Problems (1) History of colon cancer Code(s): Z85.038 - PERSONAL HISTORY OF MALIGNANT NEOPLASM OF LARGE INTESTINE (2) Anemia Code(s): D64.9 - ANEMIA, UNSPECIFIED Qualifiers: Anemia type: unspecified type Qualified Code(s): D64.9 - Anemia, unspecified (3) GIB (gastrointestinal bleeding) Code(s): K92.2 - GASTROINTESTINAL HEMORRHAGE, UNSPECIFIED Assessment/Plan Symptomatic anemia. History of colon cancer with no recent follow-up, melanotic stools. Requires chronic anticoagulation for atrial fibrillation. Deemed high risk for endoscopy due to significantly reduced cardiac output. EGD and colonoscopy for the above reasons were discussed with the patient and his . Transfuse 2 more units of PRBC while monitoring for fluid overload. will have anesthesioloy evaluate the patient in am.
[2018-03-19] MEDS ORDERED: BISACODYL 5 MG TABLET.DR (FP) PO ONE ×3 (16:45→19:00)
[2018-03-19 16:57] LABS: HEMATOCRIT 30.4 % (35.4-49); HEMOGLOBIN 10.7 GM/dL (11.7-16.9); MCH 32.9 pg (25.7-33.7); MCHC 35.4 g/dl (32.0-35.9); MEAN CELL VOLUME 93.1 fl (80-96); MEAN PLT VOLUME 10.8 fl (7.5-11.1); PLATELET COUNT 97 K/MM3 (134-434); RBC 3.26 M/mm3 (4.00-5.60); RDW 21.8 % (11.9-15.9); WHITE BLOOD COUNT 8.3 K/mm3 (4.0-10.0)
[2018-03-19] MEDS ORDERED: PEG 3350/NA SULF BICARB CL/KCL 4000 ML SOLN.RECON PO ONE (17:00)
[2018-03-19 17:16] LABS: ADD RBC MORPHOLOGY YES
[2018-03-19] MEDS ORDERED: PEG3350/SOD SULF,BICARB,CL/KCL 4,000 ML SOLN.RECON PO ONE (19:00)
[2018-03-19] MEDS: CHLORHEXIDINE GLUCONATE 4% CLEANSER FOR DECOLONIZATION TP SCH (21:38)
[2018-03-19] MEDS: ATORVASTATIN CA 40 MG TABLET (FP) PO SCH (21:39)
[2018-03-20] MEDS: INSULIN SLIDING SCALE (NOVOLOG) 1 VIAL SQ SCH ×3 (06:32→17:52)
[2018-03-20 06:47] LABS: ANION GAP 10 (8-16); BLOOD UREA NITROGEN 45 mg/dL (7-18); CALCIUM 8.5 mg/dL (8.5-10.1); CHLORIDE 108 mmol/L (98-107); CO2 27 mmol/L (21-32); CREATININE 1.7 mg/dL (0.7-1.3); GLUCOSE,RANDOM 149 mg/dL (74-106); MAGNESIUM 2.1 mg/dL (1.8-2.4); PHOSPHOROUS 3.4 mg/dL (2.5-4.9); POTASSIUM 3.6 mmol/L (3.5-5.1); SODIUM 145 mmol/L (136-145)
[2018-03-20 06:55] LABS: BASO % 0.3 % (0-2.0); EOS % 0.4 % (0-4.5); HEMATOCRIT 30.2 % (35.4-49); HEMOGLOBIN 10.6 GM/dL (11.7-16.9); LYMPH % 16.3 % (8-40); MCHC 34.9 g/dl (32.0-35.9); MEAN CELL VOLUME 94.4 fl (80-96); MEAN PLT VOLUME 9.3 fl (7.5-11.1); MONO % 14.9 % (3.8-10.2); NEUT % 68.1 % (42.8-82.8); PLATELET COUNT 95 K/MM3 (134-434); RDW 21.3 % (11.9-15.9); WHITE BLOOD COUNT 6.6 K/mm3 (4.0-10.0)
[2018-03-20] MEDS ORDERED: PROPOFOL 20 ML ONE (07:50)
[2018-03-20] MEDS ORDERED: MIDAZOLAM HCL 5 MG/1 ML Single Dose Vial ONE (07:50)
[2018-03-20] MEDS ORDERED: ETOMIDATE 20 MG/10 ML AMPUL IVPUSH ONE (07:50)
[2018-03-20] MEDS ORDERED: LIDOCAINE VISCOUS 2% ORAL/TOP 20 ML UNIT-DOSE CUP ONE (07:51)
--- NOTE | 2018-03-20 09:13 | PROC ---
Endoscopy Procedure Endoscopy procedure completed. Please see scanned procedure report. Erosive gastritis with multiple, small, superficial ulcerations was found, otherwise normal EGD. Ascending and sigmoid polyps were found and removed, normal colonoscopy otherwise. Resume previous diet. Continue PPI po qam. Minimize use, or avoid NSAIDs if possible. Follow biopsies
[2018-03-20] MEDS: FUROSEMIDE 40 MG/4 ML INJECTABLE VIAL IVPUSH SCH ×2 (09:31→16:42)
--- NOTE | 2018-03-20 09:58 | PN ---
Physical Exam: SUBJECTIVE: Patient seen and examined after EGD. He is still mildly delirious after sedation. He "tired" level is unchanged. at bedside. Stressed importance of PT and passive ROM, they have to drive back to [place] following discharge. Pt has walker and cane OBJECTIVE: Vital Signs Period Temp Pulse Resp BP Sys/Winslow Pulse Ox Last 24 Hr 97.5 F-98.4 F 60-986 17-94 96-151/44-76 90-98 PE Neuro: alert, awake, cn 2-12intact Pulm: audible rales, rhonchi CV: s1 s2 irregular rhythm Abd: s nt nd +bs : chi Ext: warm, no le edema Laboratory Results - last 24 hr 03/17/18 03/19/18 03/19/18 22:38 05:30 12:17 WBC RBC Hgb Hct MCV MCH MCHC RDW Plt Count MPV Neutrophils % Lymphocytes % Monocytes % Eosinophils % Basophils % Sodium 143 Potassium 3.6 Chloride 109 H Carbon Dioxide 26 Anion Gap 8 BUN 57 H Creatinine 1.7 H POC Glucometer [phone] Random Glucose 100 Serum Osmolality Cancelled 304 Calcium 8.7 Phosphorus 4.8 Magnesium 2.2 Triglycerides 125 Cholesterol 131 Total LDL Cholesterol 87 HDL Cholesterol 34 L 03/19/18 03/19/18 03/20/18 15:15 17:43 05:56 WBC 8.3 RBC 3.26 L D Hgb 10.7 L D Hct 30.4 L D MCV 93.1 MCH 32.9 MCHC 35.4 RDW 21.8 H Plt Count 97 L MPV 10.8 D Neutrophils % Lymphocytes % Monocytes % Eosinophils % Basophils % Sodium 145 Potassium 3.6 Chloride 108 H Carbon Dioxide 27 Anion Gap 10 BUN 45 H D Creatinine 1.7 H POC Glucometer 147.22383 Random Glucose 149 H D Serum Osmolality Calcium 8.5 Phosphorus 3.4 D Magnesium 2.1 Triglycerides Cholesterol Total LDL Cholesterol HDL Cholesterol 03/20/18 05:56 WBC 6.6 RBC 3.20 L Hgb 10.6 L Hct 30.2 L MCV 94.4 MCH 33.0 MCHC 34.9 RDW 21.3 H Plt Count 95 L MPV 9.3 D Neutrophils % 68.1 Lymphocytes % 16.3 D Monocytes % 14.9 H D Eosinophils % 0.4 D Basophils % 0.3 Sodium Potassium Chloride Carbon Dioxide Anion Gap BUN Creatinine POC Glucometer Random Glucose Serum Osmolality Calcium Phosphorus Magnesium Triglycerides Cholesterol Total LDL Cholesterol HDL Cholesterol Active Medications Generic Name Dose Route Start Last Admin Trade Name Scott PRN Reason Stop Dose Admin Albuterol/Ipratropium 1 amp 03/17/18 23:13 Duoneb - NEB Q4H PRN SHORTNESS OF BREATH Allopurinol 100 mg 03/18/18 10:00 03/19/18 09:32 Zyloprim - PO 100 mg DAILY [facility] Administration Atorvastatin Calcium 40 mg 03/17/18 23:20 03/19/18 21:39 Lipitor - PO 40 mg HS [facility] Administration Budesonide/Formoterol Fumarate 1 puff 03/18/18 10:00 03/19/18 21:54 Symbicort 160/4.5mcg - IH 1 puff BID [facility] Administration Carvedilol 12.5 mg 03/17/18 23:30 03/19/18 21:39 Coreg - PO 12.5 mg BID [facility] Administration Chlorhexidine Gluconate 1 applic 03/18/18 22:00 03/19/18 21:38 Hibiclens For Decolonization - TP 1 applic HS [facility] Administration Cholecalciferol 1,000 unit 03/18/18 10:00 03/19/18 10:03 Vitamin D3 - PO 1,000 unit DAILY [facility] Administration Docusate Sodium 100 mg 03/18/18 10:00 03/19/18 09:33 Colace - PO Not Given DAILY [facility] Ferrous Sulfate 325 mg 03/18/18 10:00 03/19/18 09:33 Feosol - PO 325 mg DAILY [facility] Administration Furosemide 40 mg 03/19/18 09:00 03/20/18 09:31 Lasix Injection - IVPUSH 40 mg BID@0900,1400 [facility] Administration Insulin Aspart 1 vial 03/17/18 23:15 03/20/18 06:32 Novolog Vial Sliding Scale - SQ Not Given TIDAC [facility] Protocol Losartan Potassium 25 mg 03/20/18 10:00 Cozaar - PO DAILY [facility] Mupirocin 1 applic 03/18/18 10:00 03/19/18 21:37 Bactroban Ointment (For Decolonization) - NS 03/23/18 09:59 1 applic BID [facility] Administration Pantoprazole Sodium 40 mg 03/18/18 22:00 03/19/18 21:39 Protonix Iv IVPUSH 40 mg BID [facility] Administration Pregabalin 75 mg 03/17/18 23:15 03/19/18 21:39 Lyrica - PO 75 mg BID [facility] Administration Thiamine HCl 100 mg 03/18/18 10:00 03/19/18 09:33 Vitamin B1 - PO 100 mg DAILY [facility] Administration Assessment: 82 year old male with a pmhx afib (on eliquis), COPD, HTN, stage 3 CKD, CAD, DM, Colon CA, hx of DVT admitted with dyspnea on exertion, anemia and elevated troponin. Plan: 1. Symptomatic anemia d/t GIB - s/p EGD and colonoscopy today - Total 4uprbc transfused, 2 yesterday - Hold Eliquis - On fe supplements 2. GIB - Will need EGD/colonoscopy pending rise in hct - Switch to Protonix BID - Advance diet per GI 3. Acute CHF exacerbation - Improving - Continue Lasix 40mg BID IV, consider daily tomorrow - ECHO LVSF severely RVSF 40-50mmhg, anterior/septal wall akinesis, mod mr, low EF 4. TYLER on ?CKD - Baseline unknown - Cr improving - FEUrea 24% indicates pre renal - Renal us when stable or cr rises 5. Elevated trops - Likely demand - Trops elevated, however down trending - Cardiology following 6. A fib - Rate controlled - Hold eliquis - Continue coreg 12.5mg BID 7. CAD - Lipitor hs - Lipid panel noted 8. DM II - ISS, BGM ACHS - hgb ac1 pending 9. HTN - BP controlled - Hold cozaar - Continue coreg 10. COPD - Not in exacerbation 11. Restless leg - Lyrica 12. DVT - SCDs, hold eliquis Visit type - Emergency Visit Emergency Visit: Yes ED Registration Date: 03/17/18 Care time: The patient presented to the Emergency Department on the above date and was hospitalized for further evaluation of their emergent condition. - New Patient This patient is new to me today: No - Critical Care Critical Care patient: No
--- NOTE | 2018-03-20 11:28 | PN ---
Progress Note, Physician History of Present Illness: The patient is an 82M with a PMH of ashd s/p CABG, paroxysmal a-fib on eliquis, COPD, HTN, stage 3 CKD who presents to the ER with worsening GOLDBERG and shortness of breath. Of note, the patient traveled from [place] 5 days ago by car over 3 days span. The patient does have a history of blood clots. The patient is with his daughter who provides most of the history. The patient states that he has recently had acutely worsened GOLDBERG but denies orthopnea. He denies any SOB while resting. He does state that he becomes dyspneic any time he tries to walk. He denies any CP, fever, chills, nausea, vomiting, swelling in extremities. - Current Medication List Current Medications: Active Medications Albuterol/Ipratropium (Duoneb -) 1 amp NEB Q4H PRN PRN Reason: SHORTNESS OF BREATH Allopurinol (Zyloprim -) 100 mg PO DAILY [facility] Last Admin: 03/19/18 09:32 Dose: 100 mg Atorvastatin Calcium (Lipitor -) 40 mg PO HS [facility] Last Admin: 03/19/18 21:39 Dose: 40 mg Budesonide/Formoterol Fumarate (Symbicort 160/4.5mcg -) 1 puff IH BID [facility] Last Admin: 03/19/18 21:54 Dose: 1 puff Carvedilol (Coreg -) 12.5 mg PO BID [facility] Last Admin: 03/19/18 21:39 Dose: 12.5 mg Chlorhexidine Gluconate (Hibiclens For Decolonization -) 1 applic TP HS [facility] Last Admin: 03/19/18 21:38 Dose: 1 applic Cholecalciferol (Vitamin D3 -) 1,000 unit PO DAILY [facility] Last Admin: 03/19/18 10:03 Dose: 1,000 unit Docusate Sodium (Colace -) 100 mg PO DAILY [facility] Last Admin: 03/19/18 09:33 Dose: Not Given Ferrous Sulfate (Feosol -) 325 mg PO DAILY [facility] Last Admin: 03/19/18 09:33 Dose: 325 mg Furosemide (Lasix Injection -) 40 mg IVPUSH BID@0900,1400 [facility] Last Admin: 03/20/18 09:31 Dose: 40 mg Insulin Aspart (Novolog Vial Sliding Scale -) 1 vial SQ TIDAC [facility] PRN Reason: Protocol Last Admin: 03/20/18 06:32 Dose: Not Given Losartan Potassium (Cozaar -) 25 mg PO DAILY [facility] Mupirocin (Bactroban Ointment (For Decolonization) -) 1 applic NS BID [facility] Stop: 03/23/18 09:59 Last Admin: 03/19/18 21:37 Dose: 1 applic Pantoprazole Sodium (Protonix Iv) 40 mg IVPUSH BID [facility] Last Admin: 03/19/18 21:39 Dose: 40 mg Pregabalin (Lyrica -) 75 mg PO BID [facility] Last Admin: 03/19/18 21:39 Dose: 75 mg Thiamine HCl (Vitamin B1 -) 100 mg PO DAILY [facility] Last Admin: 03/19/18 09:33 Dose: 100 mg - Objective Vital Signs: Vital Signs Temperature 97.6 F 03/20/18 09:15 Pulse Rate 82 03/20/18 09:45 Respiratory Rate 94 H 03/20/18 09:45 Blood Pressure 151/63 03/20/18 09:45 O2 Sat by Pulse Oximetry (%) 94 L 03/20/18 09:45 Eyes: Yes: WNL, Conjunctiva Clear, EOM Intact HENT: Yes: WNL, Atraumatic, Normocephalic Neck: Yes: WNL, Supple, Trachea Midline Cardiovascular: Yes: Pulse Irregular, JVD, S1, S2 Respiratory: Yes: WNL, Regular, CTA Bilaterally Gastrointestinal: Yes: WNL, Normal Bowel Sounds Genitourinary: Yes: WNL Musculoskeletal: Yes: WNL Extremities: Yes: WNL Edema: No Integumentary: Yes: WNL Neurological: Yes: WNL, Alert, Oriented ...Motor Strength: WNL Psychiatric: Yes: WNL Labs: CBC, BMP 03/20/18 05:56 03/20/18 05:56 INR, PTT INR 1.08 (0.82-1.09) 03/17/18 20:08 Assessment/Plan - Problems (1) Acute on chronic systolic (congestive) heart failure Assessment/Plan: severely reduced LVEF on ECHO. +JVD CXR: bilateral congestion ECHO: severely reduced LVEF; moderate LVE; mod-severe TR with moderate pulmonary HTN; mild AR; apical/apical-septal/apical-anterior akinesis. Rec: Continue carvedilol Restart pt's home losartan 25 mg daily (Creatinine Clearance presently 53). Plan to start spironolactone if BUN/Cr and electrolytes allow. On IV furosemide 40 mg bid; give dose immediately after PRBC transfusion, and may require an additional (3rd dose today) later in the evening. F/u BUN/Cr, electrolytes, Is and Os, daily weight. Consider ICD if LVEF does not improve several weeks after medication optimization. Code(s): I50.23 - ACUTE ON CHRONIC SYSTOLIC (CONGESTIVE) HEART FAILURE (2) COPD (chronic obstructive pulmonary disease) Assessment/Plan: On SYmbicort. Quit cigarettes >30 years ago. Code(s): J44.9 - CHRONIC OBSTRUCTIVE PULMONARY DISEASE, UNSPECIFIED (3) Coronary artery disease Assessment/Plan: s/p CABG after [place] in 2016. On statin. Pt has been sedentary for years. Severely reduced LVEF; pt was unaware of having CHF, though had been on carvedilol, losartan, and Bumex. Code(s): I25.10 - ATHSCL HEART DISEASE OF [place] CORONARY ARTERY W/O ANG PCTRS (4) GIB (gastrointestinal bleeding) Assessment/Plan: Receiving PRBCs. stable s/p EGD/colonoscopy. Restart apixaban as soon as possible. Code(s): K92.2 - GASTROINTESTINAL HEMORRHAGE, UNSPECIFIED (5) Gout Code(s): M10.9 - GOUT, UNSPECIFIED (6) History of colon cancer Code(s): Z85.038 - PERSONAL HISTORY OF MALIGNANT NEOPLASM OF LARGE INTESTINE h/o dvt paf - telemetry s r frequent ectopies ekg pending cc time spent 35 min
[2018-03-20] MEDS: DOCUSATE SODIUM 100 MG CAPSULE (FP) PO SCH (12:16)
[2018-03-20] MEDS: THIAMINE HCL 100 MG TABLET (FP) PO SCH (12:24)
[2018-03-20] MEDS: CHOLECALCIFEROL (VITAMIN D3) 1,000 UNIT TABLET (FP) PO SCH (12:24)
[2018-03-20] MEDS: CARVEDILOL 12.5 MG TABLET (FP) PO SCH ×2 (12:25→21:48)
[2018-03-20] MEDS: PANTOPRAZOLE SODIUM 40 MG VIAL IVPUSH SCH ×2 (12:25→21:49)
[2018-03-20] MEDS: FERROUS SO4 325 MG TABLET (FP) PO SCH (12:25)
[2018-03-20] MEDS: PREGABALIN 75 MG CAPSULE PO SCH ×2 (12:26→21:49)
[2018-03-20] MEDS: ALLOPURINOL 100 MG TABLET (FP) PO SCH (12:26)
[2018-03-20] MEDS: LOSARTAN POTASSIUM 25 MG TABLET PO SCH (12:26)
[2018-03-20] MEDS: MUPIROCIN 2% TOPICAL OINTMENT FOR DECOLONIZATION NS SCH ×2 (12:42→21:48)
--- NOTE | 2018-03-20 13:48 | PN ---
Progress Note (short form) - Note Progress Note: Patient seen and examined in the Telemetry unit. Awake and alert. Reports breathing feels stable. S/P Endoscopic evaluation: Erosive gastritis with multiple, small, superficial ulcerations was found, otherwise normal EGD. Ascending and sigmoid polyps were found and removed. Intake & Output 03/17/18 03/18/18 03/19/18 03/20/18 23:59 23:59 23:59 23:59 Intake Total 1355 2800 60 Output Total 2100 2300 Balance -745 500 60 Weight 249 lb 9.6 oz 248 lb 14.4 oz 246 lb Last Vital Signs Temp Pulse Resp BP Pulse Ox 97.6 F 82 94 H 151/63 94 L 03/20/18 09:15 03/20/18 09:45 03/20/18 09:45 03/20/18 09:45 03/20/18 09:45 Active Medications Albuterol/Ipratropium (Duoneb -) 1 amp NEB Q4H PRN PRN Reason: SHORTNESS OF BREATH Allopurinol (Zyloprim -) 100 mg PO DAILY [facility] Last Admin: 03/20/18 12:26 Dose: 100 mg Atorvastatin Calcium (Lipitor -) 40 mg PO HS [facility] Last Admin: 03/19/18 21:39 Dose: 40 mg Budesonide/Formoterol Fumarate (Symbicort 160/4.5mcg -) 1 puff IH BID [facility] Last Admin: 03/19/18 21:54 Dose: 1 puff Carvedilol (Coreg -) 12.5 mg PO BID [facility] Last Admin: 03/20/18 12:25 Dose: 12.5 mg Chlorhexidine Gluconate (Hibiclens For Decolonization -) 1 applic TP HS [facility] Last Admin: 03/19/18 21:38 Dose: 1 applic Cholecalciferol (Vitamin D3 -) 1,000 unit PO DAILY [facility] Last Admin: 03/20/18 12:24 Dose: 1,000 unit Docusate Sodium (Colace -) 100 mg PO DAILY [facility] Last Admin: 03/20/18 12:16 Dose: Not Given Ferrous Sulfate (Feosol -) 325 mg PO DAILY [facility] Last Admin: 03/20/18 12:25 Dose: 325 mg Furosemide (Lasix Injection -) 40 mg IVPUSH BID@0900,1400 [facility] Last Admin: 03/20/18 09:31 Dose: 40 mg Insulin Aspart (Novolog Vial Sliding Scale -) 1 vial SQ TIDAC [facility] PRN Reason: Protocol Last Admin: 03/20/18 12:30 Dose: 2 units Losartan Potassium (Cozaar -) 25 mg PO DAILY [facility] Last Admin: 03/20/18 12:26 Dose: 25 mg Mupirocin (Bactroban Ointment (For Decolonization) -) 1 applic NS BID [facility] Stop: 03/23/18 09:59 Last Admin: 03/19/18 21:37 Dose: 1 applic Pantoprazole Sodium (Protonix Iv) 40 mg IVPUSH BID [facility] Last Admin: 03/20/18 12:25 Dose: 40 mg Pregabalin (Lyrica -) 75 mg PO BID [facility] Last Admin: 03/20/18 12:26 Dose: 75 mg Thiamine HCl (Vitamin B1 -) 100 mg PO DAILY [facility] Last Admin: 03/20/18 12:24 Dose: 100 mg Constitutional: Yes: No Distress, Calm, Obese Eyes: Yes: Conjunctiva Clear, (-) Icterus HENT: Yes: Atraumatic, Normocephalic Neck: Yes: Supple, Trachea Midline Cardiovascular: Yes: Pulse Irregular, S1, S2 Respiratory: Yes: Diminished, On Nasal O2 Gastrointestinal: Yes: Normal Bowel Sounds, Soft, Abdomen, Obese Renal/: Yes: WNL Musculoskeletal: Yes: WNL Edema: Yes Edema: LLE: Trace, RLE: Trace Peripheral Pulses WNL: Yes Integumentary: Yes: (-) Rash ...Motor Strength: WNL Psychiatric: Yes: WNL, Alert, Oriented Labs: Laboratory Results - last 24 hr 03/18/18 03/19/18 03/19/18 05:27 15:15 17:43 WBC 8.3 RBC 3.26 L D Hgb 10.7 L D Hct 30.4 L D MCV 93.1 MCH 32.9 MCHC 35.4 RDW 21.8 H Plt Count 97 L MPV 10.8 D Neutrophils % Lymphocytes % Monocytes % Eosinophils % Basophils % Sodium Potassium Chloride Carbon Dioxide Anion Gap BUN Creatinine POC Glucometer [id number] Random Glucose Hemoglobin A1c % 5.1 Calcium Phosphorus Magnesium 03/20/18 03/20/18 05:56 05:56 WBC 6.6 RBC 3.20 L Hgb 10.6 L Hct 30.2 L MCV 94.4 MCH 33.0 MCHC 34.9 RDW 21.3 H Plt Count 95 L MPV 9.3 D Neutrophils % 68.1 Lymphocytes % 16.3 D Monocytes % 14.9 H D Eosinophils % 0.4 D Basophils % 0.3 Sodium 145 Potassium 3.6 Chloride 108 H Carbon Dioxide 27 Anion Gap 10 BUN 45 H D Creatinine 1.7 H POC Glucometer Random Glucose 149 H D Hemoglobin A1c % Calcium 8.5 Phosphorus 3.4 D Magnesium 2.1 Problem List - Problems (1) GIB (gastrointestinal bleeding) Code(s): K92.2 - GASTROINTESTINAL HEMORRHAGE, UNSPECIFIED (2) CHF exacerbation Code(s): I50.9 - HEART FAILURE, UNSPECIFIED (3) Anemia Code(s): D64.9 - ANEMIA, UNSPECIFIED Qualifiers: Anemia type: unspecified type Qualified Code(s): D64.9 - Anemia, unspecified (4) Dyspnea on exertion Code(s): R06.09 - OTHER FORMS OF DYSPNEA Assessment/Plan Afib on eliquis COPD HTN Stage 3 CKD CAD History of AMI s/p stents CABG DM Colon CA Hx of DVT Demand ischemia Hyperglycemia. Plan: -Maintain large bore IV -PPI -Transfuse 1U PRBC for Hgb<7 -Lasix as needed -PO when OK with GI -Supplemental O2 as needed -BD TX -Hold anticoag and ASA -SCDs -Cardiac Telemetry monitoring Dr Burnette
[2018-03-20] MEDS: BUDESONIDE/FORMETEROL FUMARATE 160/4.5 mcg INHALER IH SCH ×2 (14:40→21:49)
[2018-03-20] MEDS: ATORVASTATIN CA 40 MG TABLET (FP) PO SCH (21:49)
[2018-03-20] MEDS: CHLORHEXIDINE GLUCONATE 4% CLEANSER FOR DECOLONIZATION TP SCH (21:49)
[2018-03-21] MEDS: INSULIN SLIDING SCALE (NOVOLOG) 1 VIAL SQ SCH ×3 (07:22→16:00)
--- NOTE | 2018-03-21 08:27 | PN ---
Progress Note, Physician History of Present Illness: The patient is an 82M with a PMH of ashd s/p CABG, paroxysmal a-fib on eliquis, COPD, HTN, stage 3 CKD who presents to the ER with worsening GOLDBERG and shortness of breath. Of note, the patient traveled from [place] 5 days ago by car over 3 days span. The patient does have a history of blood clots. The patient is with his daughter who provides most of the history. The patient states that he has recently had acutely worsened GOLDBERG but denies orthopnea. He denies any SOB while resting. He does state that he becomes dyspneic any time he tries to walk. He denies any CP, fever, chills, nausea, vomiting, swelling in extremities. - Current Medication List Current Medications: Active Medications Albuterol/Ipratropium (Duoneb -) 1 amp NEB Q4H PRN PRN Reason: SHORTNESS OF BREATH Allopurinol (Zyloprim -) 100 mg PO DAILY [facility] Last Admin: 03/20/18 12:26 Dose: 100 mg Atorvastatin Calcium (Lipitor -) 40 mg PO HS [facility] Last Admin: 03/20/18 21:49 Dose: 40 mg Budesonide/Formoterol Fumarate (Symbicort 160/4.5mcg -) 1 puff IH BID [facility] Last Admin: 03/20/18 21:49 Dose: 1 puff Carvedilol (Coreg -) 12.5 mg PO BID [facility] Last Admin: 03/20/18 21:48 Dose: 12.5 mg Chlorhexidine Gluconate (Hibiclens For Decolonization -) 1 applic TP HS [facility] Last Admin: 03/20/18 21:49 Dose: 1 applic Cholecalciferol (Vitamin D3 -) 1,000 unit PO DAILY [facility] Last Admin: 03/20/18 12:24 Dose: 1,000 unit Docusate Sodium (Colace -) 100 mg PO DAILY [facility] Last Admin: 03/20/18 12:16 Dose: Not Given Ferrous Sulfate (Feosol -) 325 mg PO DAILY [facility] Last Admin: 03/20/18 12:25 Dose: 325 mg Furosemide (Lasix Injection -) 40 mg IVPUSH BID@0900,1400 [facility] Last Admin: 03/20/18 16:42 Dose: 40 mg Insulin Aspart (Novolog Vial Sliding Scale -) 1 vial SQ TIDAC [facility] PRN Reason: Protocol Last Admin: 03/21/18 07:22 Dose: 2 units Losartan Potassium (Cozaar -) 25 mg PO DAILY [facility] Last Admin: 03/20/18 12:26 Dose: 25 mg Mupirocin (Bactroban Ointment (For Decolonization) -) 1 applic NS BID [facility] Stop: 03/23/18 09:59 Last Admin: 03/20/18 21:48 Dose: 1 applic Pantoprazole Sodium (Protonix Iv) 40 mg IVPUSH BID [facility] Last Admin: 03/20/18 21:49 Dose: 40 mg Pregabalin (Lyrica -) 75 mg PO BID [facility] Last Admin: 03/20/18 21:49 Dose: 75 mg Thiamine HCl (Vitamin B1 -) 100 mg PO DAILY [facility] Last Admin: 03/20/18 12:24 Dose: 100 mg - Objective Vital Signs: Vital Signs Temperature 98.4 F 03/21/18 06:00 Pulse Rate 92 H 03/21/18 07:34 Respiratory Rate 18 03/21/18 07:34 Blood Pressure 118/98 03/21/18 07:34 O2 Sat by Pulse Oximetry (%) 94 L 03/21/18 07:41 Eyes: Yes: WNL, Conjunctiva Clear, EOM Intact HENT: Yes: WNL, Atraumatic, Normocephalic Neck: Yes: WNL, Supple, Trachea Midline Cardiovascular: Yes: Pulse Irregular, S1, S2 Respiratory: Yes: WNL, Regular, CTA Bilaterally Gastrointestinal: Yes: WNL, Normal Bowel Sounds Genitourinary: Yes: WNL Musculoskeletal: Yes: WNL Extremities: Yes: WNL Edema: No Integumentary: Yes: WNL Neurological: Yes: WNL, Alert, Oriented ...Motor Strength: WNL Psychiatric: Yes: WNL Labs: CBC, BMP 03/20/18 05:56 03/20/18 05:56 INR, PTT INR 1.08 (0.82-1.09) 03/17/18 20:08 Assessment/Plan - Problems (1) Acute on chronic systolic (congestive) heart failure Assessment/Plan: severely reduced LVEF on ECHO. CXR: bilateral congestion ECHO: severely reduced LVEF; moderate LVE; mod-severe TR with moderate pulmonary HTN; mild AR; apical/apical-septal/apical-anterior akinesis. Rec: Continue carvedilol Restart pt's home losartan 25 mg daily (Creatinine Clearance presently 53). Plan to start spironolactone if BUN/Cr and electrolytes allow. On IV furosemide 40 mg bid; give dose immediately after PRBC transfusion, and may require an additional (3rd dose today) later in the evening. F/u BUN/Cr, electrolytes, Is and Os, daily weight. Consider ICD if LVEF does not improve several weeks after medication optimization. Code(s): I50.23 - ACUTE ON CHRONIC SYSTOLIC (CONGESTIVE) HEART FAILURE (2) COPD (chronic obstructive pulmonary disease) Assessment/Plan: On SYmbicort. Quit cigarettes >30 years ago. Code(s): J44.9 - CHRONIC OBSTRUCTIVE PULMONARY DISEASE, UNSPECIFIED (3) Coronary artery disease Assessment/Plan: s/p CABG after [place] in 2016. On statin. Pt has been sedentary for years. Severely reduced LVEF; pt was unaware of having CHF, though had been on carvedilol, losartan, and Bumex. Code(s): I25.10 - ATHSCL HEART DISEASE OF [place] CORONARY ARTERY W/O ANG PCTRS (4) GIB (gastrointestinal bleeding) Assessment/Plan: stable s/p EGD/colonoscopy. may not need ac since as per patuient it was for provoked DVT and patient was told to stop it a week prior to admission ( apparently neg US l ext) Code(s): K92.2 - GASTROINTESTINAL HEMORRHAGE, UNSPECIFIED (5) Gout Code(s): M10.9 - GOUT, UNSPECIFIED (6) History of colon cancer Code(s): Z85.038 - PERSONAL HISTORY OF MALIGNANT NEOPLASM OF LARGE INTESTINE h/o dvt paf - patient remains in SR , No evidence AF this admission. telemetry s r frequent ectopies ekg pending cc time spent 35 min
[2018-03-21] MEDS ORDERED: PT OWN MED DRAWER 7, Y5N ONE (09:05)
[2018-03-21] MEDS: DOCUSATE SODIUM 100 MG CAPSULE (FP) PO SCH (09:14)
[2018-03-21] MEDS: FERROUS SO4 325 MG TABLET (FP) PO SCH (09:14)
[2018-03-21] MEDS: CARVEDILOL 12.5 MG TABLET (FP) PO SCH ×2 (09:14→21:32)
[2018-03-21] MEDS: FUROSEMIDE 40 MG/4 ML INJECTABLE VIAL IVPUSH SCH ×2 (09:14→13:06)
[2018-03-21] MEDS: PREGABALIN 75 MG CAPSULE PO SCH ×2 (09:14→21:32)
[2018-03-21] MEDS: LOSARTAN POTASSIUM 25 MG TABLET PO SCH (09:14)
[2018-03-21] MEDS: PANTOPRAZOLE SODIUM 40 MG VIAL IVPUSH SCH ×2 (09:14→21:32)
[2018-03-21] MEDS: CHOLECALCIFEROL (VITAMIN D3) 1,000 UNIT TABLET (FP) PO SCH (09:15)
[2018-03-21] MEDS: THIAMINE HCL 100 MG TABLET (FP) PO SCH (09:15)
[2018-03-21] MEDS: ALLOPURINOL 100 MG TABLET (FP) PO SCH (09:15)
[2018-03-21] MEDS: BUDESONIDE/FORMETEROL FUMARATE 160/4.5 mcg INHALER IH SCH ×3 (09:23→21:32)
[2018-03-21] MEDS: MUPIROCIN 2% TOPICAL OINTMENT FOR DECOLONIZATION NS SCH (09:24)
--- NOTE | 2018-03-21 09:59 | PN ---
Progress Note (short form) - Note Progress Note: Patient seen and examined in the Telemetry unit. Awake and alert. Reports breathing feels stable. No acute events overnight. Intake & Output 03/18/18 03/19/18 03/20/18 03/21/18 23:59 23:59 23:59 23:59 Intake Total 1355 2800 560 100 Output Total 2100 2300 2300 300 Balance -745 500 -1740 -200 Weight 248 lb 14.4 oz 246 lb 249 lb Last Vital Signs Temp Pulse Resp BP Pulse Ox 98.4 F 92 H 18 133/56 94 L 03/21/18 06:00 03/21/18 09:22 03/21/18 09:22 03/21/18 09:22 03/21/18 07:41 Active Medications Albuterol/Ipratropium (Duoneb -) 1 amp NEB Q4H PRN PRN Reason: SHORTNESS OF BREATH Allopurinol (Zyloprim -) 100 mg PO DAILY [facility] Last Admin: 03/21/18 09:15 Dose: 100 mg Atorvastatin Calcium (Lipitor -) 40 mg PO HS [facility] Last Admin: 03/20/18 21:49 Dose: 40 mg Budesonide/Formoterol Fumarate (Symbicort 160/4.5mcg -) 1 puff IH BID [facility] Last Admin: 03/21/18 09:23 Dose: 1 puff Carvedilol (Coreg -) 12.5 mg PO BID [facility] Last Admin: 03/21/18 09:14 Dose: 12.5 mg Chlorhexidine Gluconate (Hibiclens For Decolonization -) 1 applic TP HS [facility] Last Admin: 03/20/18 21:49 Dose: 1 applic Cholecalciferol (Vitamin D3 -) 1,000 unit PO DAILY [facility] Last Admin: 03/21/18 09:15 Dose: 1,000 unit Docusate Sodium (Colace -) 100 mg PO DAILY [facility] Last Admin: 03/21/18 09:14 Dose: 100 mg Ferrous Sulfate (Feosol -) 325 mg PO DAILY [facility] Last Admin: 03/21/18 09:14 Dose: 325 mg Furosemide (Lasix Injection -) 40 mg IVPUSH BID@0900,1400 [facility] Last Admin: 03/21/18 09:14 Dose: 40 mg Insulin Aspart (Novolog Vial Sliding Scale -) 1 vial SQ TIDAC [facility] PRN Reason: Protocol Last Admin: 03/21/18 07:22 Dose: 2 units Losartan Potassium (Cozaar -) 25 mg PO DAILY [facility] Last Admin: 03/21/18 09:14 Dose: 25 mg Mupirocin (Bactroban Ointment (For Decolonization) -) 1 applic NS BID [facility] Stop: 03/23/18 09:59 Last Admin: 03/21/18 09:24 Dose: Not Given Pantoprazole Sodium (Protonix Iv) 40 mg IVPUSH BID [facility] Last Admin: 03/21/18 09:14 Dose: 40 mg Pregabalin (Lyrica -) 75 mg PO BID [facility] Last Admin: 03/21/18 09:14 Dose: 75 mg Thiamine HCl (Vitamin B1 -) 100 mg PO DAILY [facility] Last Admin: 03/21/18 09:15 Dose: 100 mg Constitutional: Yes: No Distress, Calm, Obese Eyes: Yes: Conjunctiva Clear, (-) Icterus HENT: Yes: Atraumatic, Normocephalic Neck: Yes: Supple, Trachea Midline Cardiovascular: Yes: Pulse Irregular, S1, S2 Respiratory: Yes: Diminished, On Nasal O2 Gastrointestinal: Yes: Normal Bowel Sounds, Soft, Abdomen, Obese Renal/: Yes: WNL Musculoskeletal: Yes: WNL Edema: Yes Edema: LLE: Trace, RLE: Trace Peripheral Pulses WNL: Yes Integumentary: Yes: (-) Rash ...Motor Strength: WNL Psychiatric: Yes: WNL, Alert, Oriented Labs: Laboratory Results - last 24 hr 03/17/18 03/18/18 03/21/18 20:55 05:27 07:04 POC Glucometer [phone] Hemoglobin A1c % 5.1 Blood Type A POSITIVE Antibody Screen Negative Crossmatch See Detail Problem List - Problems (1) GIB (gastrointestinal bleeding) Code(s): K92.2 - GASTROINTESTINAL HEMORRHAGE, UNSPECIFIED (2) CHF exacerbation Code(s): I50.9 - HEART FAILURE, UNSPECIFIED (3) Anemia Code(s): D64.9 - ANEMIA, UNSPECIFIED Qualifiers: Anemia type: unspecified type Qualified Code(s): D64.9 - Anemia, unspecified (4) Dyspnea on exertion Code(s): R06.09 - OTHER FORMS OF DYSPNEA Assessment/Plan Afib on eliquis COPD HTN Stage 3 CKD CAD History of AMI s/p stents CABG DM Colon CA Hx of DVT Demand ischemia Hyperglycemia. Plan: -PPI -Normal transfusion thresholds -Lasix -PO per GI -Supplemental O2 as needed -BD TX -Hold anticoag and ASA, restart once cleared by GI -SCDs -Cardiac Telemetry monitoring Dr Burnette
[2018-03-21 12:14] LABS: BASO % 0.5 % (0-2.0); EOS % 0.2 % (0-4.5); HEMATOCRIT 31.3 % (35.4-49); HEMOGLOBIN 10.9 GM/dL (11.7-16.9); LYMPH % 14.9 % (8-40); MCH 32.6 pg (25.7-33.7); MCHC 34.9 g/dl (32.0-35.9); MEAN CELL VOLUME 93.6 fl (80-96); MEAN PLT VOLUME 8.3 fl (7.5-11.1); MONO % 13.1 % (3.8-10.2); NEUT % 71.3 % (42.8-82.8); PLATELET COUNT 97 K/MM3 (134-434); RBC 3.35 M/mm3 (4.00-5.60); WHITE BLOOD COUNT 5.9 K/mm3 (4.0-10.0)
[2018-03-21 12:43] LABS: ALBUMIN 3.2 g/dl (3.4-5.0); ALK PHOS 68 U/L (45-117); ANION GAP 7 (8-16); BILIRUBIN,TOTAL 1.2 mg/dL (0.2-1.0); BLOOD UREA NITROGEN 43 mg/dL (7-18); CALCIUM 8.7 mg/dL (8.5-10.1); CHLORIDE 103 mmol/L (98-107); CO2 31 mmol/L (21-32); CREATININE 1.9 mg/dL (0.7-1.3); GLUCOSE,RANDOM 235 mg/dL (74-106); POTASSIUM 3.3 mmol/L (3.5-5.1); SGOT/AST 8 U/L (15-37); SGPT/ALT 15 U/L (12-78); SODIUM 141 mmol/L (136-145); TOT PROT 5.5 g/dl (6.4-8.2)
[2018-03-21] MEDS ORDERED: POTASSIUM CHLORIDE TABS 20 MEQ TABLET.ER (FP) PO ONE (15:06)
--- NOTE | 2018-03-21 15:34 | EKG ---
Test Reason : Blood Pressure : / mmHG Vent. Rate : 094 BPM Atrial Rate : 094 BPM P-R Int : 000 ms QRS Dur : 090 ms QT Int : 400 ms P-R-T Axes : 059 -13 070 degrees QTc Int : 500 ms SINUS RHYTHM WITH OCCASIONAL PREMATURE VENTRICULAR COMPLEXES AND PREMATURE ATRIAL COMPLEXES INFERIOR INFARCT (CITED ON OR BEFORE 18-MAR-2018) PROLONGED QT ABNORMAL ECG WHEN COMPARED WITH ECG OF 18-MAR-2018 09:50, PREMATURE ATRIAL COMPLEXES ARE NOW PRESENT T WAVE INVERSION NO LONGER EVIDENT IN LATERAL LEADS Confirmed by SEPIDEH KING MD ([id number]) on 03/21/2018 3:34:14 PM Referred By: Oscar MALDONADO Confirmed By:SEPIDEH KING MD
--- NOTE | 2018-03-21 16:14 | PN ---
Progress Note (short form) - Note Progress Note: Subjective: The patient was seen and examined at the bedside, he has no complaints at this time Patient has been non-complaint with O2 via NC. His O2 sat was noted to be 84% on RA, placed back on 3L NC and his O2 came up to 98% Current Medications Generic Name Dose Route Start Last Admin Trade Name Scott PRN Reason Stop Dose Admin Albuterol/Ipratropium 1 amp 03/17/18 23:13 Duoneb - NEB Q4H PRN SHORTNESS OF BREATH Allopurinol 100 mg 03/18/18 10:00 03/21/18 09:15 Zyloprim - PO 100 mg DAILY JEZ Administration Atorvastatin Calcium 40 mg 03/17/18 23:20 03/20/18 21:49 Lipitor - PO 40 mg HS JEZ Administration Budesonide/Formoterol Fumarate 2 puff 03/21/18 09:59 03/21/18 11:51 Symbicort 160/4.5mcg - IH 2 puff BID JEZ Administration Carvedilol 12.5 mg 03/17/18 23:30 03/21/18 09:14 Coreg - PO 12.5 mg BID JEZ Administration Chlorhexidine Gluconate 1 applic 03/18/18 22:00 03/20/18 21:49 Hibiclens For Decolonization - TP 1 applic HS JEZ Administration Cholecalciferol 1,000 unit 03/18/18 10:00 03/21/18 09:15 Vitamin D3 - PO 1,000 unit DAILY JEZ Administration Docusate Sodium 100 mg 03/18/18 10:00 03/21/18 09:14 Colace - PO 100 mg DAILY [facility] Administration Ferrous Sulfate 325 mg 03/18/18 10:00 03/21/18 09:14 Feosol - PO 325 mg DAILY [facility] Administration Furosemide 40 mg 03/19/18 09:00 03/21/18 13:06 Lasix Injection - IVPUSH 40 mg BID@0900,1400 JEZ Administration Insulin Aspart 1 vial 03/17/18 23:15 03/21/18 11:51 Novolog Vial Sliding Scale - SQ 6 units TIDAC JEZ Administration Protocol Losartan Potassium 25 mg 03/20/18 10:00 03/21/18 09:14 Cozaar - PO 25 mg DAILY [facility] Administration Mupirocin 1 applic 03/18/18 10:00 03/21/18 09:24 Bactroban Ointment (For Decolonization) - NS 03/23/18 09:59 Not Given BID JEZ Pantoprazole Sodium 40 mg 03/18/18 22:00 03/21/18 09:14 Protonix Iv IVPUSH 40 mg BID JEZ Administration Pregabalin 75 mg 03/17/18 23:15 03/21/18 09:14 Lyrica - PO 75 mg BID JEZ Administration Thiamine HCl 100 mg 03/18/18 10:00 03/21/18 09:15 Vitamin B1 - PO 100 mg DAILY JEZ Administration Objective: Vital Signs Period Temp Pulse Resp BP Sys/Winslow Pulse Ox Last 24 Hr 97.6 F-98.4 F 84-92 18-22 107-134/48-98 94-94 Physical Exam: General: NAD, A&Ox3 Lungs: Rhonchi bilaterally Heart: Irregular rhythm, S1S2 Abd: Soft, non-tender, non-distended. Normoactive bowel sounds. Bourne catheter in place Ext: Warm, well-perfused. 2+ DP/PT bilaterally CBCD WBC 5.9 K/mm3 (4.0-10.0) 03/21/18 12:09 RBC 3.35 M/mm3 (4.00-5.60) L 03/21/18 12:09 Hgb 10.9 GM/dL (11.7-16.9) L 03/21/18 12:09 Hct 31.3 % (35.4-49) L 03/21/18 12:09 MCV 93.6 fl (80-96) 03/21/18 12:09 MCHC 34.9 g/dl (32.0-35.9) 03/21/18 12:09 RDW 20.0 % (11.9-15.9) H 03/21/18 12:09 Plt Count 97 K/MM3 (134-434) L 03/21/18 12:09 MPV 8.3 fl (7.5-11.1) D 03/21/18 12:09 CMP Sodium 141 mmol/L (136-145) 03/21/18 12:09 Potassium 3.3 mmol/L (3.5-5.1) L 03/21/18 12:09 Chloride 103 mmol/L (98-107) 03/21/18 12:09 Carbon Dioxide 31 mmol/L (21-32) 03/21/18 12:09 Anion Gap 7 (8-16) L 03/21/18 12:09 BUN 43 mg/dL (7-18) H 03/21/18 12:09 Creatinine 1.9 mg/dL (0.7-1.3) H 03/21/18 12:09 Creat Clearance w eGFR 34.19 (>60) 03/21/18 12:09 Random Glucose 235 mg/dL (74-106) H D 03/21/18 12:09 Calcium 8.7 mg/dL (8.5-10.1) 03/21/18 12:09 Total Bilirubin 1.2 mg/dL (0.2-1.0) H D 03/21/18 12:09 AST 8 U/L (15-37) L D 03/21/18 12:09 ALT 15 U/L (12-78) D 03/21/18 12:09 Alkaline Phosphatase 68 U/L (45-117) 03/21/18 12:09 Total Protein 5.5 g/dl (6.4-8.2) L 03/21/18 12:09 Albumin 3.2 g/dl (3.4-5.0) L 03/21/18 12:09 CARDIAC ENZYMES Creatine Kinase 95 IU/L (39-308) 03/18/18 05:57 Troponin I 1.80 ng/ml (0.00-0.05) H* 03/18/18 05:57 Assessment: This is an 82 year old male with PMHx of a.fib (on Eliquis), COPD, HTN, CKD stage 3, CAD, DM, colon cancer, hx of DVT who presented to the ED with GOLDBERG, anemia, elevated troponin. Plan: 1) Symptomatic anemia 2/2 GIB - S/p PRBC transfusion, Hgb stable ~10.9 - S/p EGD and colonoscopy yesterday - EGD with erosive gastritis with multiple, small, superficial ulcerations found - Colonoscopy with ascending and sigmoid polyps found and removed - Continue PPI daily - Avoid NSAIDS - Awaiting further recommendations from GI for when to restart Eliquis - Appreciate GI consult 2) Acute on chronic systolic CHF exacerbation - Improving - Continue Lasix - ECHO reviewed - Continue Coreg - Consider adding spironoloactone with improvement in kidney function 3) TYLER on CKD - Unknown baseline - Cr slightly worse today, 1.9 - F/u kidney ultrasound - F/u nephrology consult 4) A.fib - Hold all anti-coagulation until cleared by cardiology - Continue Coreg 5) CAD - Continue Lipitor - Hold ASA 2/2 GI bleed 6) DM - BGM TIDAC - ISS TIDAC 7) F/E/N: - Monitor electrolytes - Diabetic/sodium controlled diet - Hypokalemia: replete 8) Prophylaxis: - Patient diagnosed with DVT 10/26, will not place SCDs - Hold all anticoagulation until cleared by GI 9) Dispo: - Requires continued inpatient care CODE STATUS: FULL CODE Visit type - Emergency Visit Emergency Visit: Yes ED Registration Date: 03/17/18 Care time: The patient presented to the Emergency Department on the above date and was hospitalized for further evaluation of their emergent condition. - New Patient This patient is new to me today: Yes Date on this admission: 03/22/18 - Critical Care Critical Care patient: No
[2018-03-21] MEDS ORDERED: ALBUTEROL SO4 2.5/IPRATROPIUM 0.5 INH SOL 3 ML VIAL.NEB. NEB PRN (19:27)
[2018-03-21] MEDS: ATORVASTATIN CA 40 MG TABLET (FP) PO SCH (21:32)
[2018-03-21] MEDS ORDERED: CHLORHEXIDINE GLUCONATE 4% CLEANSER FOR DECOLONIZATION TP SCH (22:00)
[2018-03-21] MEDS ORDERED: MUPIROCIN 2% TOPICAL OINTMENT FOR DECOLONIZATION NS SCH (22:00)
[2018-03-22] MEDS: INSULIN SLIDING SCALE (NOVOLOG) 1 VIAL SQ SCH ×3 (06:15→16:05)
[2018-03-22 07:03] LABS: CHLORIDE 103 mmol/L (98-107); POTASSIUM 3.8 mmol/L (3.5-5.1); SODIUM 140 mmol/L (136-145)
[2018-03-22 07:18] LABS: ALBUMIN 2.9 g/dl (3.4-5.0); ALK PHOS 62 U/L (45-117); ANION GAP 8 (8-16); BILIRUBIN,TOTAL 1.1 mg/dL (0.2-1.0); BLOOD UREA NITROGEN 51 mg/dL (7-18); CALCIUM 8.5 mg/dL (8.5-10.1); CO2 29 mmol/L (21-32); GLUCOSE,RANDOM 182 mg/dL (74-106); SGOT/AST 11 U/L (15-37); SGPT/ALT 13 U/L (12-78); TOT PROT 5.1 g/dl (6.4-8.2)
--- NOTE | 2018-03-22 08:06 | PN ---
Progress Note, Physician History of Present Illness: The patient is an 82M with a PMH of ashd s/p CABG, paroxysmal a-fib on eliquis, COPD, HTN, stage 3 CKD who presents to the ER with worsening GOLDBERG and shortness of breath. Of note, the patient traveled from [place] 5 days ago by car over 3 days span. The patient does have a history of blood clots. The patient is with his daughter who provides most of the history. The patient states that he has recently had acutely worsened GOLDBERG but denies orthopnea. He denies any SOB while resting. He does state that he becomes dyspneic any time he tries to walk. He denies any CP, fever, chills, nausea, vomiting, swelling in extremities. - Current Medication List Current Medications: Active Medications Albuterol/Ipratropium (Duoneb -) 1 amp NEB Q4H PRN PRN Reason: SHORTNESS OF BREATH Allopurinol (Zyloprim -) 100 mg PO DAILY [facility] Atorvastatin Calcium (Lipitor -) 40 mg PO HS [facility] Last Admin: 03/21/18 21:32 Dose: 40 mg Budesonide/Formoterol Fumarate (Symbicort 160/4.5mcg -) 2 puff IH BID [facility] Last Admin: 03/21/18 21:32 Dose: 2 puff Carvedilol (Coreg -) 12.5 mg PO BID [facility] Last Admin: 03/21/18 21:32 Dose: 12.5 mg Cholecalciferol (Vitamin D3 -) 1,000 unit PO DAILY [facility] Docusate Sodium (Colace -) 100 mg PO DAILY [facility] Ferrous Sulfate (Feosol -) 325 mg PO DAILY [facility] Furosemide (Lasix Injection -) 40 mg IVPUSH BID@0900,1400 [facility] Insulin Aspart (Novolog Vial Sliding Scale -) 1 vial SQ TIDAC [facility] PRN Reason: Protocol Last Admin: 03/22/18 06:15 Dose: 2 units Losartan Potassium (Cozaar -) 25 mg PO DAILY [facility] Last Admin: 03/21/18 09:14 Dose: 25 mg Pantoprazole Sodium (Protonix Iv) 40 mg IVPUSH BID [facility] Last Admin: 03/21/18 21:32 Dose: 40 mg Pregabalin (Lyrica -) 75 mg PO BID [facility] Last Admin: 03/21/18 21:32 Dose: 75 mg Thiamine HCl (Vitamin B1 -) 100 mg PO DAILY [facility]Z - Objective Vital Signs: Vital Signs Temperature 98.0 F 03/22/18 06:00 Pulse Rate 82 03/22/18 06:00 Respiratory Rate 20 03/22/18 06:00 Blood Pressure 115/78 03/22/18 06:00 O2 Sat by Pulse Oximetry (%) 98 03/21/18 21:00 Eyes: Yes: WNL, Conjunctiva Clear, EOM Intact HENT: Yes: WNL, Atraumatic, Normocephalic Neck: Yes: WNL, Supple, Trachea Midline Cardiovascular: Yes: WNL, Regular Rate and Rhythm Respiratory: Yes: WNL, Regular, CTA Bilaterally Gastrointestinal: Yes: WNL, Normal Bowel Sounds Genitourinary: Yes: WNL Musculoskeletal: Yes: WNL Extremities: Yes: WNL Edema: No Integumentary: Yes: WNL Neurological: Yes: WNL, Alert, Oriented ...Motor Strength: WNL Psychiatric: Yes: WNL Labs: CBC, BMP 03/21/18 12:09 03/22/18 05:10 INR, PTT INR 1.08 (0.82-1.09) 03/17/18 20:08 Assessment/Plan - Problems (1) Acute on chronic systolic (congestive) heart failure Assessment/Plan: severely reduced LVEF on ECHO. CXR: bilateral congestion ECHO: severely reduced LVEF; moderate LVE; mod-severe TR with moderate pulmonary HTN; mild AR; apical/apical-septal/apical-anterior akinesis. Rec: Continue carvedilol Restart pt's home losartan 25 mg daily (Creatinine Clearance presently 53). Plan to start spironolactone if BUN/Cr and electrolytes allow. On IV furosemide 40 mg bid; give dose immediately after PRBC transfusion, and may require an additional (3rd dose today) later in the evening. F/u BUN/Cr, electrolytes, Is and Os, daily weight. Consider ICD if LVEF does not improve several weeks after medication optimization. Code(s): I50.23 - ACUTE ON CHRONIC SYSTOLIC (CONGESTIVE) HEART FAILURE (2) COPD (chronic obstructive pulmonary disease) Assessment/Plan: On SYmbicort. Quit cigarettes >30 years ago. Code(s): J44.9 - CHRONIC OBSTRUCTIVE PULMONARY DISEASE, UNSPECIFIED (3) Coronary artery disease Assessment/Plan: s/p CABG after [place] in 2016. On statin. Pt has been sedentary for years. Severely reduced LVEF; pt was unaware of having CHF, though had been on carvedilol, losartan, and Bumex. Code(s): I25.10 - ATHSCL HEART DISEASE OF [place] CORONARY ARTERY W/O ANG PCTRS (4) GIB (gastrointestinal bleeding) Assessment/Plan: stable s/p EGD/colonoscopy. may not need ac since as per patuient it was for provoked DVT and patient was told to stop it a week prior to admission ( apparently neg US l ext) Code(s): K92.2 - GASTROINTESTINAL HEMORRHAGE, UNSPECIFIED (5) Gout Code(s): M10.9 - GOUT, UNSPECIFIED (6) History of colon cancer Code(s): Z85.038 - PERSONAL HISTORY OF MALIGNANT NEOPLASM OF LARGE INTESTINE h/o dvt paf - patient remains in SR , No evidence AF this admission. telemetry s r frequent ectopies ekg pending cc time spent 35 min
[2018-03-22] MEDS: PANTOPRAZOLE SODIUM 40 MG VIAL IVPUSH SCH ×3 (08:46→21:37)
[2018-03-22] MEDS: LOSARTAN POTASSIUM 25 MG TABLET PO SCH (08:51)
[2018-03-22] MEDS: PREGABALIN 75 MG CAPSULE PO SCH ×3 (08:51→21:37)
[2018-03-22] MEDS: CARVEDILOL 12.5 MG TABLET (FP) PO SCH ×3 (08:51→21:37)
[2018-03-22] MEDS: BUDESONIDE/FORMETEROL FUMARATE 160/4.5 mcg INHALER IH SCH ×3 (08:52→21:38)
[2018-03-22] MEDS ORDERED: FUROSEMIDE 40 MG/4 ML INJECTABLE VIAL IVPUSH SCH (09:00)
[2018-03-22] MEDS: FERROUS SO4 325 MG TABLET (FP) PO SCH (09:17)
[2018-03-22] MEDS: ALLOPURINOL 100 MG TABLET (FP) PO SCH (09:17)
[2018-03-22] MEDS ORDERED: FUROSEMIDE 20 MG TABLET (FP) PO ONE (10:15)
--- NOTE | 2018-03-22 10:21 | PN ---
Progress Note (short form) - Note Progress Note: Patient seen and examined in the Telemetry unit. Awake and alert. Reports breathing feels stable. No acute events overnight. Intake & Output 03/19/18 03/20/18 03/21/18 03/22/18 23:59 23:59 23:59 23:59 Intake Total 2800 560 700 100 Output Total 2300 2300 1300 300 Balance 500 -1740 -600 -200 Weight 246 lb 249 lb Last Vital Signs Temp Pulse Resp BP Pulse Ox 98.0 F 84 18 112/82 98 03/22/18 06:00 03/22/18 08:28 03/22/18 08:28 03/22/18 08:28 03/21/18 21:00 Active Medications Albuterol/Ipratropium (Duoneb -) 1 amp NEB Q4H PRN PRN Reason: SHORTNESS OF BREATH Allopurinol (Zyloprim -) 100 mg PO DAILY [facility] Last Admin: 03/22/18 09:17 Dose: 100 mg Atorvastatin Calcium (Lipitor -) 40 mg PO HS [facility] Last Admin: 03/21/18 21:32 Dose: 40 mg Budesonide/Formoterol Fumarate (Symbicort 160/4.5mcg -) 2 puff IH BID [facility] Last Admin: 03/22/18 08:52 Dose: 2 puff Carvedilol (Coreg -) 12.5 mg PO BID [facility] Last Admin: 03/22/18 08:51 Dose: 12.5 mg Cholecalciferol (Vitamin D3 -) 1,000 unit PO DAILY [facility] Docusate Sodium (Colace -) 100 mg PO DAILY [facility] Ferrous Sulfate (Feosol -) 325 mg PO DAILY [facility] Last Admin: 03/22/18 09:17 Dose: 325 mg Insulin Aspart (Novolog Vial Sliding Scale -) 1 vial SQ TIDAC [facility] PRN Reason: Protocol Last Admin: 03/22/18 06:15 Dose: 2 units Losartan Potassium (Cozaar -) 25 mg PO DAILY [facility] Last Admin: 03/22/18 08:51 Dose: 25 mg Pantoprazole Sodium (Protonix Iv) 40 mg IVPUSH BID [facility] Last Admin: 03/22/18 08:46 Dose: 40 mg Pregabalin (Lyrica -) 75 mg PO BID [facility] Last Admin: 03/22/18 08:51 Dose: 75 mg Thiamine HCl (Vitamin B1 -) 100 mg PO DAILY [facility] Constitutional: Yes: No Distress, Calm, Obese Eyes: Yes: Conjunctiva Clear, (-) Icterus HENT: Yes: Atraumatic, Normocephalic Neck: Yes: Supple, Trachea Midline Cardiovascular: Yes: Pulse Irregular, S1, S2 Respiratory: Yes: Diminished, On Nasal O2 Gastrointestinal: Yes: Normal Bowel Sounds, Soft, Abdomen, Obese Renal/: Yes: WNL Musculoskeletal: Yes: WNL Edema: Yes Edema: LLE: Trace, RLE: Trace Peripheral Pulses WNL: Yes Integumentary: Yes: (-) Rash ...Motor Strength: WNL Psychiatric: Yes: WNL, Alert, Oriented Labs: Laboratory Results - last 24 hr 03/17/18 03/18/18 03/19/18 20:55 11:55 06:34 WBC RBC Hgb Hct MCV MCH MCHC RDW Plt Count MPV Neutrophils % Lymphocytes % Monocytes % Eosinophils % Basophils % Sodium Potassium Chloride Carbon Dioxide Anion Gap BUN Creatinine Creat Clearance w eGFR POC Glucometer 135.51139 129.94825 Random Glucose Calcium Total Bilirubin AST ALT Alkaline Phosphatase Total Protein Albumin Blood Type A POSITIVE Antibody Screen Negative Crossmatch See Detail 03/20/18 03/20/18 03/20/18 05:55 12:20 17:50 WBC RBC Hgb Hct MCV MCH MCHC RDW Plt Count MPV Neutrophils % Lymphocytes % Monocytes % Eosinophils % Basophils % Sodium Potassium Chloride Carbon Dioxide Anion Gap BUN Creatinine Creat Clearance w eGFR POC Glucometer [phone] 251.21585 Random Glucose Calcium Total Bilirubin AST ALT Alkaline Phosphatase Total Protein Albumin Blood Type Antibody Screen Crossmatch 03/21/18 03/21/18 03/22/18 12:09 12:09 05:10 WBC 5.9 RBC 3.35 L Hgb 10.9 L Hct 31.3 L MCV 93.6 MCH 32.6 MCHC 34.9 RDW 20.0 H Plt Count 97 L MPV 8.3 D Neutrophils % 71.3 Lymphocytes % 14.9 Monocytes % 13.1 H Eosinophils % 0.2 Basophils % 0.5 Sodium 141 140 Potassium 3.3 L 3.8 Chloride 103 103 Carbon Dioxide 31 29 Anion Gap 7 L 8 BUN 43 H 51 H Creatinine 1.9 H 2.0 H Creat Clearance w eGFR 34.19 32.23 POC Glucometer Random Glucose 235 H D 182 H D Calcium 8.7 8.5 Total Bilirubin 1.2 H D 1.1 H AST 8 L D 11 L D ALT 15 D 13 Alkaline Phosphatase 68 62 Total Protein 5.5 L 5.1 L Albumin 3.2 L 2.9 L Blood Type Antibody Screen Crossmatch Problem List - Problems (1) GIB (gastrointestinal bleeding) Code(s): K92.2 - GASTROINTESTINAL HEMORRHAGE, UNSPECIFIED (2) CHF exacerbation Code(s): I50.9 - HEART FAILURE, UNSPECIFIED (3) Anemia Code(s): D64.9 - ANEMIA, UNSPECIFIED Qualifiers: Anemia type: unspecified type Qualified Code(s): D64.9 - Anemia, unspecified (4) Dyspnea on exertion Code(s): R06.09 - OTHER FORMS OF DYSPNEA Assessment/Plan Afib on eliquis COPD HTN Stage 3 CKD CAD History of AMI s/p stents CABG DM Colon CA Hx of DVT Demand ischemia Hyperglycemia. Plan: -PPI -Normal transfusion thresholds -Lasix -PO per GI -Supplemental O2 as needed -BD TX -AC and ASA once cleared by GI -SCDs -Cardiac Telemetry monitoring -Follow renal function Dr Burnette
[2018-03-22] MEDS: DOCUSATE SODIUM 100 MG CAPSULE (FP) PO SCH (10:25)
[2018-03-22] MEDS: CHOLECALCIFEROL (VITAMIN D3) 1,000 UNIT TABLET (FP) PO SCH (10:27)
--- NOTE | 2018-03-22 12:28 | CONSULT ---
Consult Consult Specialty:: Nephrology ( [facility]/ Noel) Reason for Consultation:: Abnormal renal functions - History of Present Illness Chief Complaint: 82 year old male with a pmh afib (on eliquis), COPD, HTN, stage 3 CKD, CAD, DM, Colon CA, hx of DVT presented to the hospital with 4 day hx of GOLDBERG and weakness. On March 10, Patient traveled from [place] to [place] in a long car ride, followed by another car ride to [place]. Patient started to feel progressively worsening weakness at the beginning of his trip that resulted in him not being able to walk across the [place] without feeling tired and short of breath. Patient notes that his stools have been dark in consistency for the past month, but denies any overt bleeding. Patient was diagnosed with colon cancer back in the , had a resection and has not followed with a colonoscopy since that time. Back in February, patient was found to be anemic at his PCPs office, after which he was started on iron supplementation. He was scheduled for a colonoscopy this April. Currently patient denies chest pain, shortness of breath at rest, palpitations, lightheadedness, blurry vision, cough , nausea, vomiting, diarrhea, fevers, chills, peripheral edema. - Past Medical History Cardio/Vascular: Yes: AFIB, CAD, CHF, Deep Vein Thrombosis, HTN, Hyperlipdemia Pulmonary: Yes: COPD Gastrointestinal: Yes: Cancer (Colon Cancer) - Past Surgical History Past Surgical History: Yes: CABG - Alcohol/Substance Use Hx Alcohol Use: No - Smoking History Smoking history: Former smoker Have you smoked in the past 12 months: No - Social History Usual Living Arrangement: With Spouse Home Medications - Allergies Allergies/Adverse Reactions: Allergies Allergy/AdvReac Type Severity Reaction Status Date / Time morphine Allergy Verified 03/17/18 18:37 - Home Medications Home Medications: Ambulatory Orders Allopurinol [Zyloprim -] 100 mg PO DAILY 03/17/18 Aspirin 81 mg PO DAILY 03/17/18 Budesonide/Formeterol Fumarate [SYMBICORT 160/4.5mcg -] 1 inh PO BID 03/17/18 Bumetanide 2 mg PO DAILY 03/17/18 Carvedilol [Coreg -] 12.5 mg PO BID 03/17/18 Cholecalciferol (Vitamin D3) [Vitamin D3] 1,000 unit PO DAILY 03/17/18 Docusate Sodium [Colace] 100 mg PO DAILY 03/17/18 Ferrous Sulfate [Iron] 325 mg PO DAILY 03/17/18 Glipizide [Glucotrol -] 5 mg PO BID 03/17/18 Losartan Potassium [Cozaar -] 25 mg PO DAILY 03/17/18 Potassium Chloride 10 meq PO DAILY 03/17/18 Pregabalin [Lyrica -] 75 mg PO BID 03/17/18 Thiamine Mononitrate [Vitamin B-1] 100 mg PO DAILY 03/17/18 Review of Systems - Review of Systems Constitutional: denies: Fever, Lethargy HENT: denies: Difficult Swallowing Neck: denies: Decreased ROM Respiratory: reports: SOB, SOB on Exertion. denies: Orthopnea Neurological: denies: Change in LOC, Change in Speech, Confusion Physical Exam Vital Signs: Vital Signs Temperature 98.0 F 03/22/18 06:00 Pulse Rate 84 03/22/18 08:28 Respiratory Rate 18 03/22/18 08:28 Blood Pressure 112/82 03/22/18 08:28 O2 Sat by Pulse Oximetry (%) 98 03/21/18 21:00 Constitutional: Yes: No Distress, Calm Eyes: Yes: Conjunctiva Clear HENT: Yes: Normocephalic Neck: Yes: Trachea Midline Cardiovascular: Yes: S1, S2 Respiratory: Yes: CTA Bilaterally, Poor Air Entry Gastrointestinal: Yes: Normal Bowel Sounds, Soft Renal/: Yes: Bourne Present. No: Bladder Distention, CVA Tenderness - Left, CVA Tenderness - Right Edema: No Labs: CBC, BMP 03/21/18 12:09 03/22/18 05:10 Problem List - Problems (1) Acute kidney failure Code(s): N17.9 - ACUTE KIDNEY FAILURE, UNSPECIFIED (2) Chronic kidney disease Code(s): N18.9 - CHRONIC KIDNEY DISEASE, UNSPECIFIED (3) Acute on chronic systolic (congestive) heart failure Code(s): I50.23 - ACUTE ON CHRONIC SYSTOLIC (CONGESTIVE) HEART FAILURE (4) Anemia Code(s): D64.9 - ANEMIA, UNSPECIFIED Qualifiers: Anemia type: unspecified type Qualified Code(s): D64.9 - Anemia, unspecified (5) COPD (chronic obstructive pulmonary disease) Code(s): J44.9 - CHRONIC OBSTRUCTIVE PULMONARY DISEASE, UNSPECIFIED (6) Coronary artery disease Code(s): I25.10 - ATHSCL HEART DISEASE OF [place] CORONARY ARTERY W/O ANG PCTRS Assessment/Plan 82 year old male with a pmh afib (on eliquis), COPD, HTN, stage 3 CKD, CAD, DM, Colon CA, hx of DVT presented to the hospital with 4 day hx of GOLDBERG and weakness. On March 10, Renal evaluation for slowly worsening Kidney functions. Acute Kidney failure, most likely due to the acute hemodynamic factors with resultant renal hypoperfusion. 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 If the azotemia worsens, should consider holding ARBs. May not require Bourne catheter anymore. Will monitor the renal functions with you. Thank you. Melanie iSdhu MD
[2018-03-22] MEDS: THIAMINE HCL 100 MG TABLET (FP) PO SCH (12:32)
--- NOTE | 2018-03-22 16:39 | PN ---
Progress Note (short form) - Note Progress Note: Subjective: The patient was seen and examined at the bedside, he has no complaints at this time Current Medications Generic Name Dose Route Start Last Admin Trade Name Scott PRN Reason Stop Dose Admin Albuterol/Ipratropium 1 amp 03/21/18 19:27 Duoneb - NEB Q4H PRN SHORTNESS OF BREATH Allopurinol 100 mg 03/22/18 10:00 03/22/18 09:17 Zyloprim - PO 100 mg DAILY JEZ Administration Atorvastatin Calcium 40 mg 03/21/18 22:00 03/21/18 21:32 Lipitor - PO 40 mg HS JEZ Administration Budesonide/Formoterol Fumarate 2 puff 03/21/18 09:59 03/22/18 10:27 Symbicort 160/4.5mcg - IH 2 puff BID JEZ Administration Carvedilol 12.5 mg 03/21/18 22:00 03/22/18 10:26 Coreg - PO 12.5 mg BID JEZ Administration Cholecalciferol 1,000 unit 03/22/18 10:00 03/22/18 10:27 Vitamin D3 - PO 1,000 unit DAILY JEZ Administration Docusate Sodium 100 mg 03/22/18 10:00 03/22/18 10:25 Colace - PO 100 mg DAILY JEZ Administration Ferrous Sulfate 325 mg 03/22/18 10:00 03/22/18 09:17 Feosol - PO 325 mg DAILY JEZ Administration Insulin Aspart 1 vial 03/22/18 07:00 03/22/18 16:05 Novolog Vial Sliding Scale - SQ 12 units TIDAC JEZ Administration Protocol Pantoprazole Sodium 40 mg 03/21/18 22:00 03/22/18 10:26 Protonix Iv IVPUSH 40 mg BID JEZ Administration Pregabalin 75 mg 03/21/18 22:00 03/22/18 10:26 Lyrica - PO 75 mg BID JEZ Administration Thiamine HCl 100 mg 03/22/18 10:00 03/22/18 12:32 Vitamin B1 - PO 100 mg DAILY JEZ Administration Objective: Vital Signs Period Temp Pulse Resp BP Sys/Winslow Pulse Ox Last 24 Hr 98 F-98.2 F 71-88 18-20 108-144/59-82 98-98 Physical Exam: General: NAD, A&Ox3 Lungs: Rhonchi bilaterally Heart: Irregular rhythm, S1S2 Abd: Soft, non-tender, non-distended. Normoactive bowel sounds. Bourne catheter in place Ext: Warm, well-perfused. 2+ DP/PT bilaterally CBCD WBC 5.9 K/mm3 (4.0-10.0) 03/21/18 12:09 RBC 3.35 M/mm3 (4.00-5.60) L 03/21/18 12:09 Hgb 10.9 GM/dL (11.7-16.9) L 03/21/18 12:09 Hct 31.3 % (35.4-49) L 03/21/18 12:09 MCV 93.6 fl (80-96) 03/21/18 12:09 MCHC 34.9 g/dl (32.0-35.9) 03/21/18 12:09 RDW 20.0 % (11.9-15.9) H 03/21/18 12:09 Plt Count 97 K/MM3 (134-434) L 03/21/18 12:09 MPV 8.3 fl (7.5-11.1) D 03/21/18 12:09 CMP Sodium 140 mmol/L (136-145) 03/22/18 05:10 Potassium 3.8 mmol/L (3.5-5.1) 03/22/18 05:10 Chloride 103 mmol/L (98-107) 03/22/18 05:10 Carbon Dioxide 29 mmol/L (21-32) 03/22/18 05:10 Anion Gap 8 (8-16) 03/22/18 05:10 BUN 51 mg/dL (7-18) H 03/22/18 05:10 Creatinine 2.0 mg/dL (0.7-1.3) H 03/22/18 05:10 Creat Clearance w eGFR 32.23 (>60) 03/22/18 05:10 Random Glucose 182 mg/dL (74-106) H D 03/22/18 05:10 Calcium 8.5 mg/dL (8.5-10.1) 03/22/18 05:10 Total Bilirubin 1.1 mg/dL (0.2-1.0) H 03/22/18 05:10 AST 11 U/L (15-37) L D 03/22/18 05:10 ALT 13 U/L (12-78) 03/22/18 05:10 Alkaline Phosphatase 62 U/L (45-117) 03/22/18 05:10 Total Protein 5.1 g/dl (6.4-8.2) L 03/22/18 05:10 Albumin 2.9 g/dl (3.4-5.0) L 03/22/18 05:10 CARDIAC ENZYMES Creatine Kinase 95 IU/L (39-308) 03/18/18 05:57 Troponin I 1.80 ng/ml (0.00-0.05) H* 03/18/18 05:57 Assessment: This is an 82 year old male with PMHx of a.fib (on Eliquis), COPD, HTN, CKD stage 3, CAD, DM, colon cancer, hx of DVT who presented to the ED with GOLDBERG, anemia, elevated troponin. Plan: 1) Symptomatic anemia 2/2 GIB - S/p PRBC transfusion, Hgb stable ~10.9 - S/p EGD and colonoscopy yesterday - EGD with erosive gastritis with multiple, small, superficial ulcerations found - Colonoscopy with ascending and sigmoid polyps found and removed - Continue PPI daily - Avoid NSAIDS - Awaiting further recommendations from GI for when to restart Eliquis - Appreciate GI consult 2) Acute on chronic systolic CHF exacerbation - Improving - Continue Lasix - ECHO with severely reduced LV function - Continue Coreg - Hold Losartan as it is unknown what the patients baseline kidney function is - Consider adding spironoloactone with improvement in kidney function 3) TYLER on CKD - Unknown baseline - Cr slightly worse today, 1.9 - F/u kidney ultrasound - Appreciate nephrology consult 4) A.fib - Hold all anti-coagulation until cleared by cardiology - Continue Coreg 5) CAD - Continue Lipitor - Hold ASA 2/2 GI bleed 6) DM - BGM TIDAC - ISS TIDAC 7) F/E/N: - Monitor electrolytes - Diabetic/sodium controlled diet - Hypokalemia: resolved 8) Prophylaxis: - Patient diagnosed with DVT 10/26, will not place SCDs - Hold all anticoagulation until cleared by GI 9) Dispo: - Requires continued inpatient care CODE STATUS: FULL CODE Visit type - Emergency Visit Emergency Visit: Yes ED Registration Date: 03/17/18 Care time: The patient presented to the Emergency Department on the above date and was hospitalized for further evaluation of their emergent condition. - New Patient This patient is new to me today: No - Critical Care Critical Care patient: No
[2018-03-22] MEDS: ATORVASTATIN CA 40 MG TABLET (FP) PO SCH (21:37)
[2018-03-23] MEDS: INSULIN SLIDING SCALE (NOVOLOG) 1 VIAL SQ SCH ×3 (06:24→16:50)
[2018-03-23 06:44] LABS: CHLORIDE 105 mmol/L (98-107); POTASSIUM 3.7 mmol/L (3.5-5.1); SODIUM 140 mmol/L (136-145)
[2018-03-23 06:50] LABS: ALK PHOS 62 U/L (45-117); ANION GAP 8 (8-16); BILIRUBIN,TOTAL 0.9 mg/dL (0.2-1.0); BLOOD UREA NITROGEN 52 mg/dL (7-18); CALCIUM 8.1 mg/dL (8.5-10.1); CO2 27 mmol/L (21-32); CREATININE 1.8 mg/dL (0.7-1.3); GLUCOSE,RANDOM 140 mg/dL (74-106); SGOT/AST 6 U/L (15-37); SGPT/ALT 11 U/L (12-78); TOT PROT 5.1 g/dl (6.4-8.2)
[2018-03-23] MEDS ORDERED: PT OWN MED DRAWER 7, Y5N ONE (09:12)
[2018-03-23] MEDS: DOCUSATE SODIUM 100 MG CAPSULE (FP) PO SCH (09:14)
[2018-03-23] MEDS: CHOLECALCIFEROL (VITAMIN D3) 1,000 UNIT TABLET (FP) PO SCH (09:15)
[2018-03-23] MEDS: THIAMINE HCL 100 MG TABLET (FP) PO SCH (09:15)
[2018-03-23] MEDS: FERROUS SO4 325 MG TABLET (FP) PO SCH (09:15)
[2018-03-23] MEDS: PANTOPRAZOLE SODIUM 40 MG VIAL IVPUSH SCH ×2 (09:15→21:39)
[2018-03-23] MEDS: ALLOPURINOL 100 MG TABLET (FP) PO SCH (09:15)
[2018-03-23] MEDS: CARVEDILOL 12.5 MG TABLET (FP) PO SCH ×2 (09:15→21:39)
[2018-03-23] MEDS: PREGABALIN 75 MG CAPSULE PO SCH ×2 (09:15→21:39)
[2018-03-23] MEDS: BUDESONIDE/FORMETEROL FUMARATE 160/4.5 mcg INHALER IH SCH ×2 (09:16→21:38)
--- NOTE | 2018-03-23 12:31 | PATH ---
Surgical Pathology Report Patient Name: DEE DEE PAUL [facility]. Rec. #: [id number] /Age/Gender: 1935 (Age: 82) / M Account: [id number] Location: ICU [facility]PRENTICE Taken: 03/20/2018 Received: 03/20/2018 Reported: 03/23/2018 Physicians: Mandy Peter ACNP Specimen(s) Received A: BX ANTRUM/BODY B: BX ASCENDING COLON POLYPS C: BX SIGMOID COLON POLYP Clinical History Anemia Postoperative diagnosis: Gastritis, gastric erosions, colon polyps Final Diagnosis A. STOMACH, ANTRUM/BODY, BIOPSY: GASTRIC ANTRAL AND BODY MUCOSA WITH MILD CHRONIC GASTRITIS. IMMUNOHISTOCHEMICAL STAIN FOR H. PYLORI IS NEGATIVE. B. ASCENDING COLON, POLYPS, BIOPSY: TUBULAR ADENOMA(S). C. SIGMOID COLON, POLYP, BIOPSY: TUBULAR ADENOMA. Electronically Signed Anna Alvarez M.D. Gross Description A. Received in formalin, labeled "biopsy antrum/body" are 2 draper, irregular portions of soft tissue measuring 0.4 and 0.6 cm. in greatest dimension. The specimens are submitted in toto in one cassette. B. Received in formalin, labeled "biopsy ascending colon polyp" are 7 draper, irregular portions of soft tissue ranging from 0.2-0.3 cm. in greatest dimension. The specimens are submitted in toto in one cassette. C. Received in formalin, labeled "sigmoid polyp" is a draper, polypoid portion of soft tissue measuring 0.8 cm. in greatest dimension. The specimen is submitted in toto in one cassette. /03/20/2018 saudi03/20/2018
--- NOTE | 2018-03-23 13:18 | PN ---
Progress Note, Physician History of Present Illness: The patient is an 82M with a PMH of ashd s/p CABG, paroxysmal a-fib on eliquis, COPD, HTN, stage 3 CKD who presents to the ER with worsening GOLDBERG and shortness of breath. Of note, the patient traveled from [place] 5 days ago by car over 3 days span. The patient does have a history of blood clots. The patient is with his daughter who provides most of the history. The patient states that he has recently had acutely worsened GOLDBERG but denies orthopnea. He denies any SOB while resting. He does state that he becomes dyspneic any time he tries to walk. He denies any CP, fever, chills, nausea, vomiting, swelling in extremities. - Current Medication List Current Medications: Active Medications Albuterol/Ipratropium (Duoneb -) 1 amp NEB Q4H PRN PRN Reason: SHORTNESS OF BREATH Allopurinol (Zyloprim -) 100 mg PO DAILY [facility] Last Admin: 03/23/18 09:15 Dose: 100 mg Atorvastatin Calcium (Lipitor -) 40 mg PO HS [facility] Last Admin: 03/22/18 21:37 Dose: 40 mg Budesonide/Formoterol Fumarate (Symbicort 160/4.5mcg -) 2 puff IH BID [facility] Last Admin: 03/23/18 09:16 Dose: 2 puff Carvedilol (Coreg -) 12.5 mg PO BID [facility] Last Admin: 03/23/18 09:15 Dose: 12.5 mg Cholecalciferol (Vitamin D3 -) 1,000 unit PO DAILY [facility] Last Admin: 03/23/18 09:15 Dose: 1,000 unit Docusate Sodium (Colace -) 100 mg PO DAILY [facility] Last Admin: 03/23/18 09:14 Dose: 100 mg Ferrous Sulfate (Feosol -) 325 mg PO DAILY [facility] Last Admin: 03/23/18 09:15 Dose: 325 mg Insulin Aspart (Novolog Vial Sliding Scale -) 1 vial SQ TIDAC [facility] PRN Reason: Protocol Last Admin: 03/23/18 11:37 Dose: 8 units Pantoprazole Sodium (Protonix Iv) 40 mg IVPUSH BID [facility] Last Admin: 03/23/18 09:15 Dose: 40 mg Pregabalin (Lyrica -) 75 mg PO BID [facility] Last Admin: 03/23/18 09:15 Dose: 75 mg Thiamine HCl (Vitamin B1 -) 100 mg PO DAILY [facility] Last Admin: 03/23/18 09:15 Dose: 100 mg - Objective Vital Signs: Vital Signs Temperature 97.8 F 03/23/18 10:00 Pulse Rate 88 03/23/18 10:00 Respiratory Rate 18 03/23/18 10:00 Blood Pressure 130/50 03/23/18 10:00 O2 Sat by Pulse Oximetry (%) 100 03/23/18 08:00 Eyes: Yes: WNL, Conjunctiva Clear, EOM Intact HENT: Yes: WNL, Atraumatic, Normocephalic Neck: Yes: WNL, Supple, Trachea Midline Cardiovascular: Yes: Pulse Irregular, S1, S2 Respiratory: Yes: WNL, Regular, CTA Bilaterally Gastrointestinal: Yes: WNL, Normal Bowel Sounds Genitourinary: Yes: WNL Musculoskeletal: Yes: WNL Extremities: Yes: WNL Edema: No Integumentary: Yes: WNL Neurological: Yes: WNL, Alert, Oriented ...Motor Strength: WNL Psychiatric: Yes: WNL Labs: CBC, BMP 03/23/18 05:00 INR, PTT INR 1.08 (0.82-1.09) 03/17/18 20:08 Assessment/Plan - Problems (1) Acute on chronic systolic (congestive) heart failure Assessment/Plan: severely reduced LVEF on ECHO. CXR: bilateral congestion ECHO: severely reduced LVEF; moderate LVE; mod-severe TR with moderate pulmonary HTN; mild AR; apical/apical-septal/apical-anterior akinesis. Rec: Continue carvedilol Restart pt's home losartan 25 mg daily (Creatinine Clearance presently 53). Plan to start spironolactone if BUN/Cr and electrolytes allow. On IV furosemide 40 mg bid; give dose immediately after PRBC transfusion, and may require an additional (3rd dose today) later in the evening. F/u BUN/Cr, electrolytes, Is and Os, daily weight. Consider ICD if LVEF does not improve several weeks after medication optimization. Code(s): I50.23 - ACUTE ON CHRONIC SYSTOLIC (CONGESTIVE) HEART FAILURE (2) COPD (chronic obstructive pulmonary disease) Assessment/Plan: On SYmbicort. Quit cigarettes >30 years ago. Code(s): J44.9 - CHRONIC OBSTRUCTIVE PULMONARY DISEASE, UNSPECIFIED (3) Coronary artery disease Assessment/Plan: s/p CABG after [place] in 2016. On statin. Pt has been sedentary for years. Severely reduced LVEF; pt was unaware of having CHF, though had been on carvedilol, losartan, and Bumex. Code(s): I25.10 - ATHSCL HEART DISEASE OF [place] CORONARY ARTERY W/O ANG PCTRS (4) GIB (gastrointestinal bleeding) Assessment/Plan: stable s/p EGD/colonoscopy. may not need ac since as per patuient it was for provoked DVT and patient was told to stop it a week prior to admission ( apparently neg US l ext) Code(s): K92.2 - GASTROINTESTINAL HEMORRHAGE, UNSPECIFIED (5) Gout Code(s): M10.9 - GOUT, UNSPECIFIED (6) History of colon cancer Code(s): Z85.038 - PERSONAL HISTORY OF MALIGNANT NEOPLASM OF LARGE INTESTINE h/o dvt paf - patient remains in SR , No evidence AF this admission. telemetry s r frequent ectopies ekg pending cc time spent 35 min
[2018-03-23 13:23] LABS: BASO % 0.4 % (0-2.0); EOS % 0.7 % (0-4.5); HEMATOCRIT 29.8 % (35.4-49); HEMOGLOBIN 9.9 GM/dL (11.7-16.9); LYMPH % 20.3 % (8-40); MCH 31.2 pg (25.7-33.7); MCHC 33.2 g/dl (32.0-35.9); MEAN CELL VOLUME 93.7 fl (80-96); MEAN PLT VOLUME 9.4 fl (7.5-11.1); MONO % 12.5 % (3.8-10.2); NEUT % 66.1 % (42.8-82.8); PLATELET COUNT 101 K/MM3 (134-434); RBC 3.17 M/mm3 (4.00-5.60); RDW 18.8 % (11.9-15.9); WHITE BLOOD COUNT 4.9 K/mm3 (4.0-10.0)
--- NOTE | 2018-03-23 15:29 | PN ---
Progress Note (short form) - Note Progress Note: PULMONARY States breathing is improving but not at baseline. +nonproductive cough. Last Vital Signs Temp Pulse Resp BP Pulse Ox 97.5 F L 82 18 131/59 100 03/23/18 13:54 03/23/18 13:54 03/23/18 13:54 03/23/18 13:54 03/23/18 08:00 Intake & Output 03/20/18 03/21/18 03/22/18 03/23/18 23:59 23:59 23:59 23:59 Intake Total 593 104 2924 400 Output Total 2300 1300 1300 350 Balance -1740 -600 130 50 Weight 112.945 kg Gen: mildly tachypneic at rest Heart: RRR Lung: bibasilar rales Abd: soft, nontender Ext: no edema CBC, BMP 03/23/18 12:38 03/23/18 05:00 Active Medications Albuterol/Ipratropium (Duoneb -) 1 amp NEB Q4H PRN PRN Reason: SHORTNESS OF BREATH Allopurinol (Zyloprim -) 100 mg PO DAILY [facility] Last Admin: 03/23/18 09:15 Dose: 100 mg Atorvastatin Calcium (Lipitor -) 40 mg PO HS [facility] Last Admin: 03/22/18 21:37 Dose: 40 mg Budesonide/Formoterol Fumarate (Symbicort 160/4.5mcg -) 2 puff IH BID [facility] Last Admin: 03/23/18 09:16 Dose: 2 puff Carvedilol (Coreg -) 12.5 mg PO BID [facility] Last Admin: 03/23/18 09:15 Dose: 12.5 mg Cholecalciferol (Vitamin D3 -) 1,000 unit PO DAILY [facility] Last Admin: 03/23/18 09:15 Dose: 1,000 unit Docusate Sodium (Colace -) 100 mg PO DAILY [facility] Last Admin: 03/23/18 09:14 Dose: 100 mg Ferrous Sulfate (Feosol -) 325 mg PO DAILY [facility] Last Admin: 03/23/18 09:15 Dose: 325 mg Insulin Aspart (Novolog Vial Sliding Scale -) 1 vial SQ TIDAC [facility] PRN Reason: Protocol Last Admin: 03/23/18 11:37 Dose: 8 units Pantoprazole Sodium (Protonix Iv) 40 mg IVPUSH BID [facility] Last Admin: 03/23/18 09:15 Dose: 40 mg Pregabalin (Lyrica -) 75 mg PO BID [facility] Last Admin: 03/23/18 09:15 Dose: 75 mg Thiamine HCl (Vitamin B1 -) 100 mg PO DAILY [facility] Last Admin: 03/23/18 09:15 Dose: 100 mg A/P Acute on Chronic Systolic Heart Failure Atrial Fibrillation GI Bleed +Troponins COPD HTN CKD DM h/o DVT - continue lasix - monitor urine output, creatinine - rate controlled - holding anticoagulation - inhaled bronchodilators as needed - DVT prophylaxis
[2018-03-23 16:26] VITALS: BMI 23.1
--- NOTE | 2018-03-23 18:18 | PN ---
Progress Note (short form) - Note Progress Note: Renal follow up for CKD Pt seen and examined in Tele awake and alert offers no acute complaints denies any sob, chest pain, abd pain, Cough, N/v/D making urine w/o difficulty able to ambulate w/o difficulty Vital Signs Temperature 97.9 F 03/23/18 17:59 Pulse Rate 81 03/23/18 17:59 Respiratory Rate 18 03/23/18 17:59 Blood Pressure 118/86 03/23/18 17:59 O2 Sat by Pulse Oximetry (%) 100 03/23/18 08:00 Intake & Output 03/20/18 03/21/18 03/22/18 03/23/18 23:59 23:59 23:59 23:59 Intake Total 216 265 9456 700 Output Total 2300 1300 1300 600 Balance -1740 -600 130 100 Weight 112.945 kg NAD awake and alert MMM, No JVD RRR CTA soft NT/ND No LE edema CBC, BMP 03/23/18 12:38 03/23/18 05:00 Current Medications Albuterol/Ipratropium (Duoneb -) 1 amp NEB Q4H PRN PRN Reason: SHORTNESS OF BREATH Allopurinol (Zyloprim -) 100 mg PO DAILY [facility] Last Admin: 03/23/18 09:15 Dose: 100 mg Atorvastatin Calcium (Lipitor -) 40 mg PO HS [facility] Last Admin: 03/22/18 21:37 Dose: 40 mg Budesonide/Formoterol Fumarate (Symbicort 160/4.5mcg -) 2 puff IH BID [facility] Last Admin: 03/23/18 09:16 Dose: 2 puff Carvedilol (Coreg -) 12.5 mg PO BID [facility] Last Admin: 03/23/18 09:15 Dose: 12.5 mg Cholecalciferol (Vitamin D3 -) 1,000 unit PO DAILY [facility] Last Admin: 03/23/18 09:15 Dose: 1,000 unit Docusate Sodium (Colace -) 100 mg PO DAILY [facility] Last Admin: 03/23/18 09:14 Dose: 100 mg Ferrous Sulfate (Feosol -) 325 mg PO DAILY [facility] Last Admin: 03/23/18 09:15 Dose: 325 mg Insulin Aspart (Novolog Vial Sliding Scale -) 1 vial SQ TIDAC [facility] PRN Reason: Protocol Last Admin: 03/23/18 16:50 Dose: 2 units Pantoprazole Sodium (Protonix Iv) 40 mg IVPUSH BID [facility] Last Admin: 03/23/18 09:15 Dose: 40 mg Pregabalin (Lyrica -) 75 mg PO BID [facility] Last Admin: 03/23/18 09:15 Dose: 75 mg Thiamine HCl (Vitamin B1 -) 100 mg PO DAILY [facility] Last Admin: 03/23/18 09:15 Dose: 100 mg 82 year old gentleman with PMhx of CHF, Afib on Elquis, CKD DM, Colon Ca, DVT presented with GI bleed with Cr of 1.8-2. #GI Bleed #CKD Stage 3 w/o proteinuria #CHF #Hypertension Renal function has been essentially stable throughout the admission US of the kidneys showed slightly small kidneys that can be consistent with CKD at this no contraindication to starting home ARB pt would benefit from oral Lasix 40mg Once daily vs. BID will need to follow up with PMD upon return to [place] and have repeat labs done Trend H/H continue PPI BP is at goal if renal function and electrolytes stable with AM labs can be discharged with outpatient follow up with PMD Isidoro Cohen DO
--- NOTE | 2018-03-23 18:42 | PN ---
Progress Note (short form) - Note Progress Note: Subjective: The patient was seen and examined at the bedside, he has no complaints at this time Current Medications Generic Name Dose Route Start Last Admin Trade Name Scott PRN Reason Stop Dose Admin Albuterol/Ipratropium 1 amp 03/21/18 19:27 Duoneb - NEB Q4H PRN SHORTNESS OF BREATH Allopurinol 100 mg 03/22/18 10:00 03/23/18 09:15 Zyloprim - PO 100 mg DAILY JEZ Administration Atorvastatin Calcium 40 mg 03/21/18 22:00 03/22/18 21:37 Lipitor - PO 40 mg HS JEZ Administration Budesonide/Formoterol Fumarate 2 puff 03/21/18 09:59 03/23/18 09:16 Symbicort 160/4.5mcg - IH 2 puff BID JEZ Administration Carvedilol 12.5 mg 03/21/18 22:00 03/23/18 09:15 Coreg - PO 12.5 mg BID JEZ Administration Cholecalciferol 1,000 unit 03/22/18 10:00 03/23/18 09:15 Vitamin D3 - PO 1,000 unit DAILY JEZ Administration Docusate Sodium 100 mg 03/22/18 10:00 03/23/18 09:14 Colace - PO 100 mg DAILY JEZ Administration Ferrous Sulfate 325 mg 03/22/18 10:00 03/23/18 09:15 Feosol - PO 325 mg DAILY JEZ Administration Furosemide 40 mg 03/24/18 10:00 Lasix - PO DAILY [facility] Insulin Aspart 1 vial 03/22/18 07:00 03/23/18 16:50 Novolog Vial Sliding Scale - SQ 2 units TIDAC JEZ Administration Protocol Losartan Potassium 25 mg 03/24/18 10:00 Cozaar - PO DAILY JEZ Pantoprazole Sodium 40 mg 03/21/18 22:00 03/23/18 09:15 Protonix Iv IVPUSH 40 mg BID JEZ Administration Pregabalin 75 mg 03/21/18 22:00 03/23/18 09:15 Lyrica - PO 75 mg BID JEZ Administration Spironolactone 25 mg 03/24/18 10:00 Aldactone - PO DAILY JEZ Thiamine HCl 100 mg 03/22/18 10:00 03/23/18 09:15 Vitamin B1 - PO 100 mg DAILY JEZ Administration Objective: Vital Signs Period Temp Pulse Resp BP Sys/Winslow Pulse Ox Last 24 Hr 97.5 F-98.6 F 74-98 14-18 111-144/49-92 95-100 Physical Exam: General: NAD, A&Ox3 Lungs: Rhonchi bilaterally Heart: Irregular rhythm, S1S2 Abd: Soft, non-tender, non-distended. Normoactive bowel sounds. Bourne catheter in place Ext: Warm, well-perfused. 2+ DP/PT bilaterally CBCD WBC 4.9 K/mm3 (4.0-10.0) 03/23/18 12:38 RBC 3.17 M/mm3 (4.00-5.60) L 03/23/18 12:38 Hgb 9.9 GM/dL (11.7-16.9) L 03/23/18 12:38 Hct 29.8 % (35.4-49) L 03/23/18 12:38 MCV 93.7 fl (80-96) 03/23/18 12:38 MCHC 33.2 g/dl (32.0-35.9) 03/23/18 12:38 RDW 18.8 % (11.9-15.9) H 03/23/18 12:38 Plt Count 101 K/MM3 (134-434) L 03/23/18 12:38 MPV 9.4 fl (7.5-11.1) D 03/23/18 12:38 CMP Sodium 140 mmol/L (136-145) 03/23/18 05:00 Potassium 3.7 mmol/L (3.5-5.1) 03/23/18 05:00 Chloride 105 mmol/L (98-107) 03/23/18 05:00 Carbon Dioxide 27 mmol/L (21-32) 03/23/18 05:00 Anion Gap 8 (8-16) 03/23/18 05:00 BUN 52 mg/dL (7-18) H 03/23/18 05:00 Creatinine 1.8 mg/dL (0.7-1.3) H 03/23/18 05:00 Creat Clearance w eGFR 36.39 (>60) 03/23/18 05:00 Random Glucose 140 mg/dL (74-106) H D 03/23/18 05:00 Calcium 8.1 mg/dL (8.5-10.1) L 03/23/18 05:00 Total Bilirubin 0.9 mg/dL (0.2-1.0) 03/23/18 05:00 AST 6 U/L (15-37) L D 03/23/18 05:00 ALT 11 U/L (12-78) L 03/23/18 05:00 Alkaline Phosphatase 62 U/L (45-117) 03/23/18 05:00 Total Protein 5.1 g/dl (6.4-8.2) L 03/23/18 05:00 Albumin 3.0 g/dl (3.4-5.0) L 03/23/18 05:00 CARDIAC ENZYMES Creatine Kinase 95 IU/L (39-308) 03/18/18 05:57 Troponin I 1.80 ng/ml (0.00-0.05) H* 03/18/18 05:57 Assessment: This is an 82 year old male with PMHx of a.fib (on Eliquis), COPD, HTN, CKD stage 3, CAD, DM, colon cancer, hx of DVT who presented to the ED with GOLDBERG, anemia, elevated troponin. Plan: 1) Symptomatic anemia 2/2 GIB - S/p PRBC transfusion, continue to trend H/H - S/p EGD and colonoscopy - EGD with erosive gastritis with multiple, small, superficial ulcerations found - Colonoscopy with ascending and sigmoid polyps found and removed - Continue PPI daily - Avoid NSAIDS - Awaiting further recommendations from GI for when to restart Eliquis - Appreciate GI consult 2) Acute on chronic systolic CHF exacerbation - Improving - Continue Lasix - ECHO with severely reduced LV function - Continue Coreg - Discussed with Dr. Cohen, can start spironolactone, lasix, and losartan - Appreciate cardiology consult 3) TYLER on CKD - Unknown baseline - Kidney ultrasound: left mid non-obstructing stones with the largest measuring 6mm. Both kidneys appear otherwise unremarkable - Appreciate nephrology consult 4) A.fib - Hold all anti-coagulation until cleared by GI - Continue Coreg 5) CAD - Continue Lipitor - Hold ASA 2/2 GI bleed 6) DM - BGM TIDAC - ISS TIDAC 7) F/E/N: - Monitor electrolytes - Diabetic/sodium controlled diet 8) Prophylaxis: - Patient diagnosed with DVT 10/26, will not place SCDs - Hold all anticoagulation until cleared by GI 9) Dispo: - Requires continued inpatient care CODE STATUS: FULL CODE Visit type - Emergency Visit Emergency Visit: Yes ED Registration Date: 03/17/18 Care time: The patient presented to the Emergency Department on the above date and was hospitalized for further evaluation of their emergent condition. - New Patient This patient is new to me today: No - Critical Care Critical Care patient: No
[2018-03-23] MEDS: ATORVASTATIN CA 40 MG TABLET (FP) PO SCH (21:39)
[2018-03-24 05:52] VITALS: TEMP 98.4
[2018-03-24] MEDS: INSULIN SLIDING SCALE (NOVOLOG) 1 VIAL SQ SCH ×2 (06:12→11:36)
[2018-03-24 06:20] LABS: HEMATOCRIT 26.4 % (35.4-49); HEMOGLOBIN 9.2 GM/dL (11.7-16.9); MCHC 34.8 g/dl (32.0-35.9); MEAN CELL VOLUME 91.9 fl (80-96); MEAN PLT VOLUME 9.1 fl (7.5-11.1); PLATELET COUNT 84 K/MM3 (134-434); RBC 2.87 M/mm3 (4.00-5.60); RDW 18.2 % (11.9-15.9); WHITE BLOOD COUNT 5.4 K/mm3 (4.0-10.0)
[2018-03-24 06:57] LABS: ANION GAP 8 (8-16); BILIRUBIN,TOTAL 0.6 mg/dL (0.2-1.0); BLOOD UREA NITROGEN 53 mg/dL (7-18); CALCIUM 8.2 mg/dL (8.5-10.1); CHLORIDE 107 mmol/L (98-107); CO2 26 mmol/L (21-32); GLUCOSE,RANDOM 174 mg/dL (74-106); POTASSIUM 3.8 mmol/L (3.5-5.1); SGOT/AST 7 U/L (15-37); SGPT/ALT 10 U/L (12-78); SODIUM 141 mmol/L (136-145)
[2018-03-24 06:59] LABS: ALK PHOS 62 U/L (45-117); CREATININE 1.7 mg/dL (0.7-1.3); TOT PROT 5.2 g/dl (6.4-8.2)
[2018-03-24 08:33] VITALS: BP 135/67; PULSE 87
--- NOTE | 2018-03-24 09:23 | PN ---
Progress Note, Physician Chief Complaint: Pt A&Ox3; no chest pain, dyspnea, or palpitations. History of Present Illness: The patient is an 82 white man with a PMH of CAD (x/p OH in 2016 -->CABG), a- fib on eliquis, COPD, HTN, stage 3 CKD who presents to the ER with worsening GOLDBERG and shortness of breath. Of note, the patient traveled from [place] 5 days ago by car over 3 days span. The patient does have a history of blood clots. The patient is with his daughter who provides most of the history. The patient states that he has recently had acutely worsened GOLDBERG but denies orthopnea. He denies any SOB while resting. He does state that he becomes dyspneic any time he tries to walk. He denies any CP, fever, chills, nausea, vomiting, swelling in extremities. <Brenden Sapp - Last Filed: 03/17/18 21:50> - Current Medication List Current Medications: Active Medications Albuterol/Ipratropium (Duoneb -) 1 amp NEB Q4H PRN PRN Reason: SHORTNESS OF BREATH Allopurinol (Zyloprim -) 100 mg PO DAILY [facility] Last Admin: 03/23/18 09:15 Dose: 100 mg Atorvastatin Calcium (Lipitor -) 40 mg PO HS [facility] Last Admin: 03/23/18 21:39 Dose: 40 mg Budesonide/Formoterol Fumarate (Symbicort 160/4.5mcg -) 2 puff IH BID [facility] Last Admin: 03/23/18 21:38 Dose: 2 puff Carvedilol (Coreg -) 12.5 mg PO BID [facility] Last Admin: 03/23/18 21:39 Dose: 12.5 mg Cholecalciferol (Vitamin D3 -) 1,000 unit PO DAILY [facility] Last Admin: 03/23/18 09:15 Dose: 1,000 unit Docusate Sodium (Colace -) 100 mg PO DAILY [facility] Last Admin: 03/23/18 09:14 Dose: 100 mg Ferrous Sulfate (Feosol -) 325 mg PO DAILY [facility] Last Admin: 03/23/18 09:15 Dose: 325 mg Furosemide (Lasix -) 40 mg PO DAILY [facility] Insulin Aspart (Novolog Vial Sliding Scale -) 1 vial SQ TIDAC [facility] PRN Reason: Protocol Last Admin: 03/24/18 06:12 Dose: 2 units Losartan Potassium (Cozaar -) 25 mg PO DAILY [facility] Pantoprazole Sodium (Protonix Iv) 40 mg IVPUSH BID [facility] Last Admin: 03/23/18 21:39 Dose: 40 mg Pregabalin (Lyrica -) 75 mg PO BID [facility] Last Admin: 03/23/18 21:39 Dose: 75 mg Spironolactone (Aldactone -) 25 mg PO DAILY [facility] Thiamine HCl (Vitamin B1 -) 100 mg PO DAILY [facility] Last Admin: 03/23/18 09:15 Dose: 100 mg - Objective Vital Signs: Vital Signs Temperature 98.4 F 03/24/18 05:32 Pulse Rate 87 03/24/18 08:30 Respiratory Rate 18 03/24/18 08:30 Blood Pressure 135/67 03/24/18 08:30 O2 Sat by Pulse Oximetry (%) 98 03/23/18 20:17 Constitutional: Yes: No Distress Eyes: Yes: WNL HENT: Yes: WNL Neck: Yes: WNL Labs: CBC, BMP 03/24/18 05:20 03/24/18 05:20 INR, PTT INR 1.08 (0.82-1.09) 03/17/18 20:08 Problem List - Problems (1) Acute on chronic systolic (congestive) heart failure Assessment/Plan: severely reduced LVEF on ECHO. No JVD. CXR: bilateral congestion (consider f/u study) ECHO: severely reduced LVEF; moderate LVE; mod-severe TR with moderate pulmonary HTN; mild AR; apical/apical-septal/apical-anterior akinesis. Rec: Continue carvedilol Restarted pt's home losartan 25 mg daily On spironolactone; On POI furosemide prn. F/u BUN/Cr, electrolytes, Is and Os, daily weight. F/u TSH. Consider ICD if LVEF does not improve several weeks after medication optimization. From a cardiac standpoint, pt may be discharged home and followed as outpatient (pt has cardiac team in [place]). Code(s): I50.23 - ACUTE ON CHRONIC SYSTOLIC (CONGESTIVE) HEART FAILURE (2) COPD (chronic obstructive pulmonary disease) Assessment/Plan: On SYmbicort. Quit cigarettes >30 years ago. Code(s): J44.9 - CHRONIC OBSTRUCTIVE PULMONARY DISEASE, UNSPECIFIED (3) Coronary artery disease Assessment/Plan: s/p CABG after OH in 2016. On statin. Pt has been sedentary for years. Severely reduced LVEF; pt was unaware of having CHF, though had been on carvedilol, losartan, and Bumex. Code(s): I25.10 - ATHSCL HEART DISEASE OF [place] CORONARY ARTERY W/O ANG PCTRS (4) GIB (gastrointestinal bleeding) Assessment/Plan: Receiving PRBCs. For EGD/colonoscopy. Off apixaban (NSR with frequent APCs, couplets; s/p GI bleed). Code(s): K92.2 - GASTROINTESTINAL HEMORRHAGE, UNSPECIFIED (5) Gout Code(s): M10.9 - GOUT, UNSPECIFIED (6) History of colon cancer Code(s): Z85.038 - PERSONAL HISTORY OF MALIGNANT NEOPLASM OF LARGE INTESTINE
[2018-03-24] MEDS ORDERED: FUROSEMIDE 40 MG TABLET (FP) PO SCH (10:00)
[2018-03-24] MEDS ORDERED: LOSARTAN POTASSIUM 25 MG TABLET PO SCH (10:00)
[2018-03-24] MEDS ORDERED: SPIRONOLACTONE 25 MG TABLET (FP) PO SCH (10:00)
[2018-03-24] MEDS ORDERED: PT OWN MED DRAWER 7, Y5N ONE (11:13)
[2018-03-24] MEDS: CARVEDILOL 12.5 MG TABLET (FP) PO SCH (11:14)
[2018-03-24] MEDS: ALLOPURINOL 100 MG TABLET (FP) PO SCH (11:14)
[2018-03-24] MEDS: DOCUSATE SODIUM 100 MG CAPSULE (FP) PO SCH (11:14)
[2018-03-24] MEDS: THIAMINE HCL 100 MG TABLET (FP) PO SCH (11:14)
[2018-03-24] MEDS: PREGABALIN 75 MG CAPSULE PO SCH (11:14)
[2018-03-24] MEDS: CHOLECALCIFEROL (VITAMIN D3) 1,000 UNIT TABLET (FP) PO SCH (11:15)
[2018-03-24] MEDS: FERROUS SO4 325 MG TABLET (FP) PO SCH (11:15)
[2018-03-24] MEDS: BUDESONIDE/FORMETEROL FUMARATE 160/4.5 mcg INHALER IH SCH (11:16)
[2018-03-24] MEDS: PANTOPRAZOLE SODIUM 40 MG VIAL IVPUSH SCH (11:16)
--- NOTE | 2018-03-24 12:36 | PN ---
Progress Note (short form) - Note Progress Note: PULMONARY Breathing continues to improve. + mild nonproductive cough. Last Vital Signs Temp Pulse Resp BP Pulse Ox 98.4 F 87 18 135/67 95 03/24/18 05:32 03/24/18 08:30 03/24/18 08:30 03/24/18 08:30 03/24/18 09:00 Intake & Output 03/21/18 03/22/18 03/23/18 03/24/18 23:59 23:59 23:59 23:59 Intake Total 700 1430 700 360 Output Total 1300 1300 900 800 Balance -600 130 -200 -440 Weight 112.945 kg Gen: mildly tachypneic at rest Heart: RRR Lung: less bibasilar rales Abd: soft, nontender Ext: no edema CBC, BMP 03/24/18 05:20 03/24/18 05:20 Active Medications Albuterol/Ipratropium (Duoneb -) 1 amp NEB Q4H PRN PRN Reason: SHORTNESS OF BREATH Allopurinol (Zyloprim -) 100 mg PO DAILY [facility] Last Admin: 03/24/18 11:14 Dose: 100 mg Atorvastatin Calcium (Lipitor -) 40 mg PO HS [facility] Last Admin: 03/23/18 21:39 Dose: 40 mg Budesonide/Formoterol Fumarate (Symbicort 160/4.5mcg -) 2 puff IH BID [facility] Last Admin: 03/24/18 11:16 Dose: 2 puff Carvedilol (Coreg -) 12.5 mg PO BID [facility] Last Admin: 03/24/18 11:14 Dose: 12.5 mg Cholecalciferol (Vitamin D3 -) 1,000 unit PO DAILY [facility] Last Admin: 03/24/18 11:15 Dose: 1,000 unit Docusate Sodium (Colace -) 100 mg PO DAILY [facility] Last Admin: 03/24/18 11:14 Dose: 100 mg Ferrous Sulfate (Feosol -) 325 mg PO DAILY [facility] Last Admin: 03/24/18 11:15 Dose: 325 mg Furosemide (Lasix -) 40 mg PO DAILY [facility] Last Admin: 03/24/18 11:14 Dose: 40 mg Insulin Aspart (Novolog Vial Sliding Scale -) 1 vial SQ TIDAC [facility] PRN Reason: Protocol Last Admin: 03/24/18 11:36 Dose: 6 units Losartan Potassium (Cozaar -) 25 mg PO DAILY [facility] Last Admin: 03/24/18 11:15 Dose: 25 mg Pantoprazole Sodium (Protonix Iv) 40 mg IVPUSH BID [facility] Last Admin: 03/24/18 11:16 Dose: 40 mg Pregabalin (Lyrica -) 75 mg PO BID [facility] Last Admin: 03/24/18 11:14 Dose: 75 mg Spironolactone (Aldactone -) 25 mg PO DAILY [facility] Last Admin: 03/24/18 11:14 Dose: 25 mg Thiamine HCl (Vitamin B1 -) 100 mg PO DAILY [facility] Last Admin: 03/24/18 11:14 Dose: 100 mg A/P Acute on Chronic Systolic Heart Failure Atrial Fibrillation GI Bleed +Troponins COPD HTN CKD DM h/o DVT - continue lasix - monitor urine output, creatinine - rate controlled - holding anticoagulation - inhaled bronchodilators as needed - DVT prophylaxis - d/c planning
--- NOTE | 2018-03-24 12:56 | DS ---
Physical Examination Vital Signs: Vital Signs Temperature 98.4 F 03/24/18 05:32 Pulse Rate 87 03/24/18 08:30 Respiratory Rate 18 03/24/18 08:30 Blood Pressure 135/67 03/24/18 08:30 O2 Sat by Pulse Oximetry (%) 95 03/24/18 09:00 Labs: CBC, BMP 03/24/18 05:20 03/24/18 05:20 Discharge Summary Reason For Visit: DYPNEA ON EXERTION Current Active Problems Acute kidney failure (Acute) Acute on chronic systolic (congestive) heart failure (Acute) Anemia (Acute) CHF exacerbation (Acute) COPD (chronic obstructive pulmonary disease) (Acute) Chronic kidney disease (Acute) Coronary artery disease (Acute) Dyspnea on exertion (Acute) GIB (gastrointestinal bleeding) (Acute) Gout (Acute) History of colon cancer (Acute) Condition: Stable - Instructions Referrals: ON STAFF,NOT [Primary Care Provider] - - Home Medications Comprehensive Discharge Medication List: Ambulatory Orders Allopurinol [Zyloprim -] 100 mg PO DAILY 03/17/18 Budesonide/Formeterol Fumarate [SYMBICORT 160/4.5mcg -] 1 inh PO BID 03/17/18 Carvedilol [Coreg -] 12.5 mg PO BID 03/17/18 Cholecalciferol (Vitamin D3) [Vitamin D3] 1,000 unit PO DAILY 03/17/18 Docusate Sodium [Colace] 100 mg PO DAILY 03/17/18 Ferrous Sulfate [Iron] 325 mg PO DAILY 03/17/18 Glipizide [Glucotrol -] 5 mg PO BID 03/17/18 Losartan Potassium [Cozaar -] 25 mg PO DAILY 03/17/18 Pregabalin [Lyrica -] 75 mg PO BID 03/17/18 Thiamine Mononitrate [Vitamin B-1] 100 mg PO DAILY 03/17/18 Albuterol Sulfate Inhaler - [Ventolin Hfa Inhaler -] 1 - 2 inh PO Q4H PRN #1 inhaler 03/24/18 Atorvastatin Ca [Lipitor] 40 mg PO HS #30 tablet 03/24/18 Furosemide [Lasix -] 40 mg PO DAILY #30 tablet 03/24/18 Pantoprazole Sodium [Protonix -] 40 mg PO DAILY #30 tablet.ec 03/24/18 Spironolactone [Aldactone -] 25 mg PO DAILY #30 tablet 03/24/18
== END 2018-03-24 14:00 | disposition home or self-care (01) | DRG 377 ==
LOC: JER 18:34 → UNDOADMIN 21:27 → JERBED 21:27 → JICU 23:13 → J2W 03-19 19:54
PROVIDERS: ADMIT Internal Medicine; ATTEND Registered Nurse
PROC: 30233N1 Transfusion of Nonautologous Red Blood Cells into Peripheral Vein, Percutaneous Approach (ICD-10-PCS; 2018-03-17)
PROC: 0DBK8ZX Excision of Ascending Colon, Via Natural or Artificial Opening Endoscopic, Diagnostic (ICD-10-PCS; 2018-03-20)
PROC: 0DBN8ZX Excision of Sigmoid Colon, Via Natural or Artificial Opening Endoscopic, Diagnostic (ICD-10-PCS; 2018-03-20)
PROC: 0DD68ZX Extraction of Stomach, Via Natural or Artificial Opening Endoscopic, Diagnostic (ICD-10-PCS; principal; 2018-03-20 08:00)
DX: K92.2 Gastrointestinal hemorrhage, unspecified (principal); I50.23 Acute on chronic systolic (congestive) heart failure; I13.0 Hypertensive heart and chronic kidney disease with heart failure and stage 1 through stage 4 chronic kidney disease, or unspecified chronic kidney disease; I24.8 Other forms of acute ischemic heart disease; I47.1 Supraventricular tachycardia; I48.91 Unspecified atrial fibrillation; E11.9 Type 2 diabetes mellitus without complications; E11.22 Type 2 diabetes mellitus with diabetic chronic kidney disease; J44.9 Chronic obstructive pulmonary disease, unspecified; M10.9 Gout, unspecified; I25.10 Atherosclerotic heart disease of native coronary artery without angina pectoris; Z95.1 Presence of aortocoronary bypass graft; N18.3 Chronic kidney disease, stage 3 (moderate); Z85.038 Personal history of other malignant neoplasm of large intestine; E66.9 Obesity, unspecified; Z68.39 Body mass index [BMI] 39.0-39.9, adult; I25.5 Ischemic cardiomyopathy; Z98.61 Coronary angioplasty status; D12.2 Benign neoplasm of ascending colon; D12.5 Benign neoplasm of sigmoid colon; K64.8 Other hemorrhoids; K29.50 Unspecified chronic gastritis without bleeding; D50.0 Iron deficiency anemia secondary to blood loss (chronic)
CPT/HCPCS: 36415; 36430; 71045-TC-FY; 76775-TC; 80048; 80053; 80061; 81003; 82272; 82550; 82570; 82607; 82746; 82962; 83036; 83540; 83550; 83721; 83735; 83880; 83930; 83935; 84100; 84300; 84443; 84484; 84540; 85025; 85027; 85610; 86850; 86900; 86901; 86922; 88305-TC; 93005; 93010; 93306-TC; 93970-TC; 97116-GP; 97161-GP; 99284-25; J7030; P9038; P9058